=== PATIENT | male | born 1965 | race Caucasian/White ===

== ENCOUNTER → 2016-04-22 | Outpatient (CLI) | payer MEDICARE ==
[2016-04-22 11:39] LABS: ABSOLUTE BASOPHILS # (AUTO) 0.1 10^3/uL (0.0-0.2); ABSOLUTE LYMPHOCYTES (AUTO) 3.3 10^3/uL (0.5-4.7); BASOPHILS % (AUTO) 0.6 % (0-2); EOSINOPHILS % (AUTO) 0.2 % (0-6); HEMATOCRIT 45.4 % (37.9-51.0); HEMOGLOBIN 15.6 g/dL (13.5-17.0); HGB HCT DIFFERENCE 1.4; LYMPHOCYTES % (AUTO) 22.6 % (13-45); MEAN CORPUSCULAR HEMOGLOBIN 30.9 pg (27.0-33.4); MEAN CORPUSCULAR HGB CONC 34.3 g/dL (32.0-36.0); MEAN CORPUSCULAR VOLUME 90 fl (80-97); MONOCYTES % (AUTO) 7.1 % (3-13); RED BLOOD COUNT 5.04 10^6/uL (4.35-5.55); RED CELL DISTRIBUTION WIDTH 13.5 % (11.5-14.0); SEGMENTED NEUTROPHILS % (AUTO) 69.5 % (42-78); WHITE BLOOD COUNT 14.4 10^3/uL (4.0-10.5)
[2016-04-22 12:06] LABS: ALANINE AMINOTRANSFERASE 53 U/L (21-72); ALBUMIN 5.1 g/dL (3.5-5.0); ALKALINE PHOSPHATASE 117 U/L (38-126); ANION GAP 18 (5-19); ASPARTATE AMINO TRANSFERASE 28 U/L (17-59); BLOOD UREA NITROGEN 16 mg/dL (7-20); CALCIUM 10.5 mg/dL (8.4-10.2); CARBON DIOXIDE 27 mmol/L (22-30); CHLORIDE 97 mmol/L (98-107); CHOLESTEROL 149.91 mg/dL (0-200); CREATININE RESULT 1.53 mg/dL (0.52-1.25); Direct HDL 40 mg/dL (>40); GLUCOSE 102 mg/dL (75-110); POTASSIUM 4.6 mmol/L (3.6-5.0); TOTAL PROTEIN 8.3 g/dL (6.3-8.2); TRIGLYCERIDES 156 mg/dL (<150)
[2016-04-22 12:17] LABS: DIRECT LDL 87 mg/dL (<100)
[2016-04-22 12:21] LABS: VLDL CHOLESTEROL 31.2 mg/dL (10-31)
[2016-04-22 12:34] LABS: THYROID STIMULATING HORMONE 2.26 uIU/mL (0.47-4.68)
== END ==
LOC: OD 11:11
PROVIDERS: ATTEND Nurse Practitioner Psychiatric/Mental Health
DX: F31.81 Bipolar II disorder (principal); Z79.899 Other long term (current) drug therapy
CPT/HCPCS: 36415; 80053; 80061; 84439; 84443; 85025

== ENCOUNTER → 2017-02-02 | Outpatient (CLI) | payer MEDICARE, MEDICAID ==
--- NOTE | 2017-02-02 22:36 | XCELERA REPORT ---
[address] [address] Transthoracic Echocardiogram Report Name: USAMA CAMPOS Age: 51 yrs Gender: Male : 1965 Patient Status: Outpatient Patient Location: Study Date: 02/02/2017 10:11 AM Height: 71 in Weight: 269 lb BSA: 2.4 m2 Procedure: A complete two-dimensional transthoracic echocardiogram was performed (2D, M-mode, spectral and color flow Doppler). The study was technically difficult with many images being suboptimal in quality. Reason For Study: ABN EKG Ordering Physician: KENYON MITCHELL Performed By: Phyllis Malone Interpretation Summary The study was technically difficult with many images being suboptimal in quality. The left ventricular ejection fraction is normal. There is borderline concentric left ventricular hypertrophy. Doppler measurements suggest pseudonormalized left ventricular relaxation, which is associated with grade II/IV or mild to moderate diastolic dysfunction The left ventricle is grossly normal size. Wall motion cannot be accurately commented on, but no definite regional wall motion abnormalities noted. Borderline right ventricular enlargement. The right ventricular systolic function is normal. The left atrial size is normal. The right atrium is normal in size There is no mitral regurgitation noted. There is no mitral valve stenosis. No aortic regurgitation is present. There is no aortic valve stenosis There is no tricuspid stenosis. No tricuspid regurgitation. The aortic root is not well visualized but is probably normal size. The inferior vena cava appeared normal and decreased > 50% with respiration (RAP 5-10 mmHg) There is no pericardial effusion. MMode/2D Measurements & Calculations RVDd: 2.6 cm LVIDd: 5.1 cm FS: 37.5 % Ao root diam: 3.2 cm IVSd: 0.97 cm LVIDs: 3.2 cm EDV(Teich): 124.7 ml LVPWd: 0.96 cmESV(Teich): 41.0 ml Ao root area: 8.1 cm2 EF(Teich): 67.2 % LA dimension: 3.3 cm LVOT diam: 2.2 cm LVOT area: 3.9 cm2 Doppler Measurements & Calculations MV E max tatianna: MV P1/2t max tatianna: Ao V2 max: LV V1 max P.8 cm/sec 94.8 cm/sec 128.5 cm/sec 4.5 mmHg MV A max tatianna: MV P1/2t: 57.6 msec Ao max PG: LV V1 max: 62.7 cm/sec MVA(P1/2t): 3.8 cm2 6.6 mmHg 106.1 cm/sec MV E/A: 1.5 MV dec slope: RUSH(V,D): 3.2 cm2 481.7 cm/sec2 PA V2 max: 109.1 cm/sec PA max P.8 mmHg Left Ventricle The left ventricle is grossly normal size. There is borderline concentric left ventricular hypertrophy. The left ventricular ejection fraction is normal. Doppler measurements suggest pseudonormalized left ventricular relaxation, which is associated with grade II/IV or mild to moderate diastolic dysfunction. Wall motion cannot be accurately commented on, but no definite regional wall motion abnormalities noted. Right Ventricle Borderline right ventricular enlargement. There is normal right ventricular wall thickness. The right ventricular systolic function is normal. Atria The right atrium is normal in size. The left atrial size is normal. Interarterial septum not well visualized and not well dopplered. Cannot comment on ASD/PFO presence. Mitral Valve The mitral valve is grossly normal. There is no mitral valve stenosis. There is no mitral regurgitation noted. Aortic Valve The aortic valve is not well visualized secondary to technical limitations. There is no aortic valve stenosis. No aortic regurgitation is present. Tricuspid Valve The tricuspid valve is not well visualized secondary to technical limitations. There is no tricuspid stenosis. No tricuspid regurgitation. Pulmonic Valve The pulmonic valve is not well visualized. Great Vessels The aortic root is not well visualized but is probably normal size. The inferior vena cava appeared normal and decreased > 50% with respiration (RAP 5-10 mmHg). Effusions There is no pericardial effusion. : KENYON MITCHELL > Hamzah Summers
== END ==
LOC: SP 09:56
PROVIDERS: ATTEND Family Medicine
DX: R94.31 Abnormal electrocardiogram [ECG] [EKG] (principal)
CPT/HCPCS: 93306

== ENCOUNTER → 2017-04-06 | Outpatient (CLI) | payer MEDICARE, MEDICAID ==
[2017-04-06 12:18] LABS: ABSOLUTE EOSINOPHILS # (AUTO) 0.1 10^3/uL (0.0-0.6); ABSOLUTE LYMPHOCYTES (AUTO) 2.5 10^3/uL (0.5-4.7); ABSOLUTE MONOCYTES (AUTO) 0.6 10^3/uL (0.1-1.4); ABSOLUTE NEUT (AUTO) 6.3 10^3/uL (1.7-8.2); BASOPHILS % (AUTO) 0.4 % (0-2); EOSINOPHILS % (AUTO) 1.2 % (0-6); HEMATOCRIT 41.2 % (37.9-51.0); HEMOGLOBIN 14.1 g/dL (13.5-17.0); LYMPHOCYTES % (AUTO) 26.4 % (13-45); MEAN CORPUSCULAR HEMOGLOBIN 31.1 pg (27.0-33.4); MEAN CORPUSCULAR HGB CONC 34.2 g/dL (32.0-36.0); MEAN CORPUSCULAR VOLUME 91 fl (80-97); MONOCYTES % (AUTO) 6.7 % (3-13); PLATELET COUNT 232 10^3/uL (150-450); RED BLOOD COUNT 4.54 10^6/uL (4.35-5.55); RED CELL DISTRIBUTION WIDTH 13.8 % (11.5-14.0); SEGMENTED NEUTROPHILS % (AUTO) 65.3 % (42-78); TOTAL CELLS COUNTED % (AUTO) 100 %; WHITE BLOOD COUNT 9.6 10^3/uL (4.0-10.5)
[2017-04-06 12:49] LABS: ALANINE AMINOTRANSFERASE 65 U/L (21-72); ALBUMIN 4.2 g/dL (3.5-5.0); ALKALINE PHOSPHATASE 125 U/L (38-126); ANION GAP 13 (5-19); ASPARTATE AMINO TRANSFERASE 42 U/L (17-59); BILIRUBIN,DIRECT 0.3 mg/dL (0.0-0.4); BILIRUBIN,TOTAL 0.5 mg/dL (0.2-1.3); BLOOD UREA NITROGEN 9 mg/dL (7-20); CALCIUM 9.8 mg/dL (8.4-10.2); CARBON DIOXIDE 26 mmol/L (22-30); CHLORIDE 101 mmol/L (98-107); CHOLESTEROL 182.02 mg/dL (0-200); GLUCOSE 129 mg/dL (75-110); POTASSIUM 4.2 mmol/L (3.6-5.0); SODIUM 140.2 mmol/L (137-145); TOTAL PROTEIN 7.3 g/dL (6.3-8.2); TRIGLYCERIDES 170 mg/dL (<150)
[2017-04-06 12:59] LABS: DIRECT LDL 117 mg/dL (<100); FREE T4 (FREE THYROXINE) 1.34 ng/dL (0.78-2.19)
[2017-04-06 13:13] LABS: THYROID STIMULATING HORMONE 2.62 uIU/mL (0.47-4.68)
== END ==
LOC: OD 11:18
PROVIDERS: ATTEND Nurse Practitioner Psychiatric/Mental Health
DX: F31.81 Bipolar II disorder (principal); Z79.899 Other long term (current) drug therapy
CPT/HCPCS: 36415; 80053; 80061; 83036; 84439; 84443; 85025

== ENCOUNTER 2017-04-27 06:00 | Emergency (ER) | payer MEDICARE, MEDICAID ==
[2017-04-27] MEDS ORDERED: KETOROLAC TROMETHAMINE 60 MG/2 ML SDV IM ONE (06:30)
[2017-04-27] MEDS ORDERED: PROMETHAZINE HCL INJ 25 MG/1 ML VIAL IM ONE (06:30)
--- NOTE | 2017-04-27 06:36 | ER Document Report ---
ED General - General Chief Complaint: Nausea/Vomiting Stated Complaint: CHILLS AND TREMORS Time Seen by Provider: 04/27/17 06:23 TRAVEL OUTSIDE OF THE [place] IN LAST 30 DAYS: No - HPI Patient complains to provider of: Nausea vomiting chills Notes: Patient coming in for nausea vomiting chills states that he has diffuse myalgias. Patient states proximally 4 days ago when symptoms started. Patient also states approximate 4 days ago when he ran out of his methadone. Patient states niece recently diagnosed with influenza with similar symptoms. Patient states he has a form today to see his family physician to restart his methadone. Patient denies any recent travel patient upon my evaluation is resting comfortably upon questioning the patient about his symptoms patient starts to have a twitching to his legs with was to be voluntary. Patient was witnessed prior to evaluation resting comfortably no twitching - Related Data Allergies/Adverse Reactions: No Known Allergies Allergy (Unverified 07/31/11 11:46) Past Medical History - Social History Smoking Status: Former Smoker Chew tobacco use (# tins/day): No Family History: Reviewed & Not Pertinent Patient has suicidal ideation: No Patient has homicidal ideation: No - Past Medical History Cardiac Medical History: Reports: Hx Hypercholesterolemia, Hx Hypertension Pulmonary Medical History: Denies: Hx Tuberculosis Renal/ Medical History: Denies: Hx Peritoneal Dialysis Psychiatric Medical History: Reports: Hx Bipolar Disorder, Hx Depression Past Surgical History: Reports: Hx Cholecystectomy, Hx Herniorrhaphy, Hx Tonsillectomy. Denies: Hx Pacemaker - Immunizations Hx Diphtheria, Pertussis, Tetanus Vaccination: Yes Hx Pneumococcal Vaccination: 03/21/00 Review of Systems - Review of Systems Constitutional: Chills, Other - Nausea vomiting EENT: No symptoms reported Cardiovascular: No symptoms reported Respiratory: No symptoms reported Gastrointestinal: No symptoms reported Genitourinary: No symptoms reported Male Genitourinary: No symptoms reported Musculoskeletal: No symptoms reported Skin: No symptoms reported Hematologic/Lymphatic: No symptoms reported Neurological/Psychological: No symptoms reported -: Yes All other systems reviewed and negative Physical Exam - Vital signs Vitals: Temp Pulse Resp BP Pulse Ox 99.4 F 108 H 20 129/77 H 96 04/27/17 06:05 04/27/17 06:05 04/27/17 06:05 04/27/17 06:05 04/27/17 06:05 Interpretation: Normal - General General appearance: Appears well, Alert - HEENT Head: Normocephalic, Atraumatic Eyes: Normal Pupils: PERRL - Respiratory Respiratory status: No respiratory distress Chest status: Nontender Breath sounds: Normal Chest palpation: Normal - Cardiovascular Rhythm: Regular Heart sounds: Normal auscultation Murmur: No - Abdominal Inspection: Normal Distension: No distension Bowel sounds: Normal Tenderness: Nontender Organomegaly: No organomegaly - Back Back: Normal, Nontender - Extremities General upper extremity: Normal inspection, Nontender, Normal color, Normal ROM , Normal temperature General lower extremity: Normal inspection, Nontender, Normal color, Normal ROM , Normal temperature, Normal weight bearing. No: Thom's sign - Neurological Neuro grossly intact: Yes Cognition: Normal Orientation: AAOx4 [place] Coma Scale Eye Opening: Spontaneous [place] Coma Scale Verbal: Oriented [place] Coma Scale Motor: Obeys Commands Sma Coma Scale Total: 15 Speech: Normal Motor strength normal: LUE, RUE, LLE, RLE Sensory: Normal - Psychological Associated symptoms: Normal affect, Normal mood - Skin Skin Temperature: Warm Skin Moisture: Dry Skin Color: Normal Course - Re-evaluation Re-evalutation: 04/27/17 14:02 Patient symptoms more likely due to viral etiology the patient recently had exposure to diagnose fluid. Methadone withdrawal could be contributing as well. Otherwise patient looks to be nontoxic patient requesting I prescribed her methadone today explained that I cannot perform this however I will give him Phenergan and Zofran to help out his nausea patient is to take Tylenol Motrin for his aches and pains and follow-up with his physician to establish himself with the methadone clinic. - Vital Signs Vital signs: Temp Pulse Resp BP Pulse Ox 98.6 F 108 H 21 H 128/85 H 96 04/27/17 07:14 04/27/17 06:05 04/27/17 07:01 04/27/17 07:00 04/27/17 07:01 Discharge - Discharge Clinical Impression: Flu-like symptoms Condition: Good Disposition: HOME, SELF-CARE Instructions: Influenza ([facility]), Nausea or Vomiting, Nonspecific ([facility]) Additional Instructions: Some your symptoms today are consistent with influenza. Continue to take Tylenol Motrin for fevers. They will also help with pain control. Take nausea medication as prescribed. I would recommend continue with your appointment today to see your primary care physician or establish yourself with this physician to continue on your pain management regimen. Prescriptions: Ondansetron [Zofran Odt] 4 mg PO Q6 PRN #30 tab.rapdis PRN Reason: For Nausea/Vomiting Promethazine HCl [Phenergan 25 mg Tablet] 25 - 50 mg PO Q6 #30 tablet Referrals: KENYON MITCHELL MD [Primary Care Provider] - Follow up as needed
[2017-04-27 07:13] VITALS: BP 128/85
== END 2017-04-27 07:42 | disposition home or self-care (01) ==
LOC: ER 06:00
DX: R11.2 Nausea with vomiting, unspecified (principal); R68.83 Chills (without fever); M79.1 Myalgia; E78.00 Pure hypercholesterolemia, unspecified; I10 Essential (primary) hypertension; Z90.49 Acquired absence of other specified parts of digestive tract
CPT/HCPCS: 99284; 96372; J1885; J2550

== ENCOUNTER → 2017-07-22 | Outpatient (CLI) | payer MEDICAID, MEDICARE ==
--- NOTE | 2017-07-22 10:42 | RADIOLOGY REPORT (SQ) ---
EXAM DESCRIPTION: U/S ABDOMEN LIMITED W/O DOP COMPLETED DATE/TIME: 07/22/2017 9:06 am REASON FOR STUDY: R94.5 ABNORMAL RESULTS OF LIVER FUNCTION STUDIES R94.5 ABNORMAL RESULTS OF LIVER FUNCTION STUDIES COMPARISON: CT angio chest 2011 TECHNIQUE: Dynamic and static grayscale images acquired of the abdomen and recorded on PACS. Additio nal selected color Doppler and spectral images recorded. LIMITATIONS: Body habitus, midline bowel gas FINDINGS: PANCREAS: Not well seen LIVER: Coarse echotexture, difficult to penetrate with the ultrasound energy from diffuse fatty infil tration. LIVER VASCULATURE: Normal directional flow of the main portal vein and hepatic veins. GALLBLADDER: Post cholecystectomy ULTRASOUND-DETECTED HAINES'S SIGN: Negative. INTRAHEPATIC DUCTS AND COMMON DUCT: CBD and intrahepatic ducts normal caliber. No filling defects. D istal most common duct not well seen due to duodenum gas. INFERIOR VENA CAVA: Not well seen. AORTA: Not well seen. RIGHT KIDNEY: Not well seen. No gross hydronephrosis PERITONEAL AND RIGHT PLEURAL SPACE: No ascites or effusions. OTHER: No other significant findings. IMPRESSION: Fatty liver Post cholecystectomy Pancreas, right kidney, abdominal aorta, hepatic vena cava not well seen TECHNICAL DOCUMENTATION: JOB ID: [id number] [employer]- All Rights Reserved Reading location - IP/workstation name: [email or web address]
== END ==
LOC: RAD 09:01
PROVIDERS: ATTEND Physician Assistant
DX: R94.5 Abnormal results of liver function studies (principal); K76.0 Fatty (change of) liver, not elsewhere classified
CPT/HCPCS: 76705

== ENCOUNTER → 2018-04-18 | Outpatient (CLI) | payer MEDICAID, MEDICARE ==
--- NOTE | 2018-04-18 14:42 | RADIOLOGY REPORT (SQ) ---
EXAM DESCRIPTION: CT CHEST WITH COMPLETED DATE/TIME: 04/18/2018 2:20 pm REASON FOR STUDY: R05 COUGH R05 COUGH COMPARISON: 08/08/2011 TECHNIQUE: CT scan of the chest performed using helical scanning technique with dynamic intravenous contrast injection. Images reviewed with lung, soft tissue and bone windows. Reconstructed coronal and sagittal MPR and MIP images reviewed. All images stored on PACS. All CT scanners at this facility use dose modulation, iterative reconstruction, and/or weight based d osing when appropriate to reduce radiation dose to as low as reasonably achievable (ALARA). [facility]: Dose Right [facility]: CareDose [facility]: Dose Right [facility]: Teradose 4D [facility]: myfab5 CONTRAST TYPE AND DOSE: contrast/concentration: Isovue 350.00 mg/ml; Total Contrast Delivered: 80.0 ml; Total Saline Delivered: 36.0 ml 80 cc Omnipaque 350 RENAL FUNCTION: Creatinine 0.9 RADIATION DOSE: CT Rad equipment meets quality standard of care and radiation dose reduction techniq ues were employed. CTDIvol: 17.4 mGy. DLP: 659 mGy-cm. . LIMITATIONS: None. FINDINGS: LUNGS AND PLEURA: There is patchy consolidation and ground-glass attenuation most conspicu ous within the right upper lobe. Additional mild areas of airspace disease within the bilateral lowe r lobes. There are associated bilateral nodular opacities. No significant pleural effusion. No pne umothorax. HILAR AND MEDIASTINAL STRUCTURES: No identified masses or abnormal nodes. HEART AND VASCULAR STRUCTURES: No aneurysm or dissection. No central pulmonary emboli. No pericardi al effusion. HARDWARE: None in the chest. UPPER ABDOMEN: No significant findings. Limited exam. THYROID AND OTHER SOFT TISSUES: No masses. No adenopathy. BONES: No significant finding. OTHER: No other significant finding. IMPRESSION: Findings compatible with multifocal pneumonia, greatest within the right upper lobe. Rec ommend follow-up following treatment to ensure resolution of the scattered nodular opacities. TECHNICAL DOCUMENTATION: JOB ID: [id number] Quality ID # [id number]: Final reports with documentation of one or more dose reduction techniques (e.g., Au tomated exposure control, adjustment of the mA and/or kV according to patient size, use of iterative reconstruction technique) 2010 [employer]- All Rights Reserved Reading location - IP/workstation name: [email or web address]
== END ==
LOC: RAD 14:57
PROVIDERS: ATTEND Family Medicine
DX: J18.9 Pneumonia, unspecified organism (principal); R05 Cough
CPT/HCPCS: 71260; 82565

== ENCOUNTER 2018-05-15 14:26 | Emergency (ER) | payer MEDICARE, MEDICAID ==
[2018-05-15] MEDS ORDERED: ACETAMINOPHEN 325 MG TABLET PO ONE (16:26)
--- NOTE | 2018-05-15 16:51 | RADIOLOGY REPORT (SQ) ---
EXAM DESCRIPTION: HIP RIGHT AP/LATERAL COMPLETED DATE/TIME: 05/15/2018 4:41 pm REASON FOR STUDY: pain in right hip COMPARISON: None. NUMBER OF VIEWS: Two views. TECHNIQUE: AP pelvis and additional frog-leg view of the right hip. LIMITATIONS: None. FINDINGS: MINERALIZATION: Normal. RIGHT HIP: No fracture or dislocation. No worrisome bone lesions. LEFT HIP: No fracture or dislocation. No worrisome bone lesions. PUBIS AND ISCHIUM: No fracture. PELVIS: No fracture. SACRUM: No fracture or dislocation. No worrisome bone lesions. LOWER LUMBAR SPINE: No fracture or dislocation. No worrisome bone lesions. No significant disc disea se. SOFT TISSUES: No findings. OTHER: No other significant finding. IMPRESSION: NEGATIVE STUDY OF THE RIGHT HIP. NO RADIOGRAPHIC EVIDENCE OF ACUTE INJURY. TECHNICAL DOCUMENTATION: JOB ID: [id number] [employer]- All Rights Reserved Reading location - IP/workstation name: [email or web address]
--- NOTE | 2018-05-15 18:16 | ER Document Report ---
ED Hip Pain/Injury - General Chief Complaint: Hip Pain Stated Complaint: R HIP PAIN Time Seen by Provider: 05/15/18 16:01 Primary Care Provider: [facility] ([facility] [Provider Group] - Follow up as needed KENYON MITCHELL MD [Primary Care Provider] - Follow up as needed Mode of Arrival: Ambulatory Information source: Patient Notes: 52-year-old male presented to ED for complaint of right hip pain for a week. He states he has been experiencing pain from his right pelvic and hip. Patient denies any injuries or any new event that could have caused his pain. He was walking when I first saw the man. He is on pain management and states he is getting pain management narcotics. Patient is alert oriented respirations regular and unlabored speaking in full sentences and is able to walk. He states that he is being seen at the cancer center for kidney cancer that they found out about a week ago and they are supposed to remove his kidney and Malathi. TRAVEL OUTSIDE OF THE [place] IN LAST 30 DAYS: No - HPI Patient complains to provider of: Hip - Right Occurred: Last week Onset/Duration: Gradual Quality of pain: Achy, Sharp Severity: Severe Pain Level: 5 Symptoms prior to fall: None Symptoms since fall: None Rotation of extremity: None Pain with palpation of the pelvis: Yes - Related Data Allergies/Adverse Reactions: No Known Allergies Allergy (Unverified 07/31/11 11:46) Past Medical History - General Information source: Patient - Social History Smoking Status: Former Smoker Frequency of alcohol use: None Drug Abuse: None Occupation: Disabled Lives with: Family Family History: Reviewed & Not Pertinent Patient has suicidal ideation: No Patient has homicidal ideation: No - Past Medical History Cardiac Medical History: Reports: Hx Hypercholesterolemia, Hx Hypertension Pulmonary Medical History: Reports: None EENT Medical History: Reports: None Neurological Medical History: Reports: None Endocrine Medical History: Reports: None Renal/ Medical History: Reports: None Malignancy Medical History: Reports Hx Renal (Kidney) Cancer GI Medical History: Reports: Other - Inguinal hernia Musculoskeletal Medical History: Reports Hx Arthritis, Reports Other - Degenerative disc disease his left hip injury Skin Medical History: Reports None Psychiatric Medical History: Reports: Hx Bipolar Disorder, Hx Depression Traumatic Medical History: Reports: None Infectious Medical History: Reports: None Past Surgical History: Reports: Hx Cholecystectomy, Hx Herniorrhaphy, Hx Tonsillectomy - Immunizations Hx Diphtheria, Pertussis, Tetanus Vaccination: Yes Hx Pneumococcal Vaccination: 03/21/00 Review of Systems - Review of Systems Constitutional: No symptoms reported EENT: No symptoms reported Cardiovascular: No symptoms reported Respiratory: No symptoms reported Gastrointestinal: No symptoms reported Genitourinary: No symptoms reported Male Genitourinary: No symptoms reported Musculoskeletal: Joint pain - Right hip, Muscle pain. denies: Joint swelling Skin: No symptoms reported Hematologic/Lymphatic: No symptoms reported Neurological/Psychological: No symptoms reported -: Yes All other systems reviewed and negative Physical Exam - Vital signs Vitals: Temp Pulse Resp BP Pulse Ox 98.8 F 101 H 16 123/77 96 05/15/18 14:33 05/15/18 14:33 05/15/18 14:33 05/15/18 14:33 05/15/18 14:33 Interpretation: Normal - General General appearance: Appears well, Alert - HEENT Head: Normocephalic, Atraumatic Eyes: Normal Pupils: PERRL - Respiratory Respiratory status: No respiratory distress Chest status: Nontender Breath sounds: Normal Chest palpation: Normal - Cardiovascular Rhythm: Regular Heart sounds: Normal auscultation Murmur: No - Abdominal Inspection: Normal Distension: No distension Bowel sounds: Normal Tenderness: Nontender Organomegaly: No organomegaly - Back Back: Normal, Nontender - Extremities General upper extremity: Normal inspection, Nontender, Normal color, Normal ROM, Normal temperature General lower extremity: Normal inspection, Normal color, Normal ROM, Normal temperature, Normal weight bearing. No: Thom's sign Hip: Tender, Pain with ROM. No: Abrasion, Deformity, Dislocation, Ecchymosis, Instability, Laceration, Unable to bear weight Thigh: Normal, Nontender Knee: Normal, Nontender Calf: Normal, Nontender - Neurological Neuro grossly intact: Yes Cognition: Normal Orientation: AAOx4 Sam Coma Scale Eye Opening: Spontaneous [place] Coma Scale Verbal: Oriented [place] Coma Scale Motor: Obeys Commands [place] Coma Scale Total: 15 Speech: Normal Motor strength normal: LUE, RUE, LLE, RLE Sensory: Normal - Psychological Associated symptoms: Normal affect, Normal mood - Skin Skin Temperature: Warm Skin Moisture: Dry Skin Color: Normal Course - Vital Signs Vital signs: Temp Pulse Resp BP Pulse Ox 98.4 F 90 14 111/67 96 05/15/18 18:48 05/15/18 18:48 05/15/18 18:48 05/15/18 18:48 05/15/18 18:48 - Diagnostic Test Radiology reviewed: Image reviewed, Reports reviewed Discharge - Discharge Clinical Impression: Acute right hip pain Condition: Stable Disposition: HOME, SELF-CARE Additional Instructions: Arthralgia Arthralgia is pain in the joints. We use the word arthralgia to describe joint pain where there's no history of injury, no known joint disease, and the joints are normal to examination. Arthralgia can be a symptom of an acute illness, such as influenza, hepatitis, or serum sickness. Sometimes the joint pain comes before any other symptoms. Arthralgia can also be an early symptom of joint disease, such as rheumatoid arthritis or lupus. If arthralgia is accompanied by an acute illness that explains the joint pain, such as mononucleosis, no further testing needs to be done. When there's no clear reason for the pain, tests may be done to see if there's an inflammatory disease of the joints. The usual treatment is anti-inflammatory medication, such as ibuprofen. Joint aches can be soothed with a heating pad or hot compress. If joints remain painful more than a few days, you'll need testing and followup. Return if a joint becomes swollen, red, or severely painful. Ibuprofen Ibuprofen is an excellent, safe drug for pain control. In addition, it has potent antiinflammatory effects which are beneficial, especially in the treatment of injuries, arthritis, or tendonitis. It's best to take ibuprofen with food. Persons with ulcer disease or allergy to aspirin should notify their physician of this before taking ibuprofen. Take the medication exactly as prescribed. Don't take additional doses unless instructed to do so by your doctor. If you develop wheezing, shortness of breath, hives, faintness, stomach pain, vomiting, or dark black stools, return for re-evaluation at once. Ice Packs Apply ice packs frequently against the painful area. Many different schedules are recommended, such as "20 minutes on, 20 minutes off" or "one hour ice, two hours rest." If you need to work, you may need to go longer between ice treatments. You should plan to have the area ice packed AT LEAST one fourth of the time. The ice should be applied over the wrap, tape, or splint, or over a layer of cloth -- not directly against the skin. Some ice bags have a built-in cloth and can be put directly on the skin. FOLLOW-UP CARE: If you have been referred to a physician for follow-up care, call the physicians office for an appointment as you were instructed or within the next two days. If you experience worsening or a significant change in your symptoms, notify the physician immediately or return to the Emergency Department at any time for re-evaluation. Referrals: KENYON MITCHELL MD [Primary Care Provider] - Follow up as needed [facility] ([facility]) [Provider Group] - Follow up as needed
[2018-05-15 18:51] VITALS: BP 111/67
== END 2018-05-15 18:50 | disposition home or self-care (01) ==
LOC: ER 14:26
DX: M25.551 Pain in right hip (principal); R10.2 Pelvic and perineal pain; C64.9 Malignant neoplasm of unspecified kidney, except renal pelvis; Z87.891 Personal history of nicotine dependence; I10 Essential (primary) hypertension
CPT/HCPCS: 99283; 73502; A9270

== ENCOUNTER → 2018-06-01 | Outpatient (CLI) | payer MEDICARE, MEDICAID ==
--- NOTE | 2018-06-01 15:26 | RADIOLOGY REPORT (SQ) ---
EXAM DESCRIPTION: HIP RIGHT AP/LATERAL COMPLETED DATE/TIME: 06/01/2018 1:08 pm REASON FOR STUDY: PAIN OF RT HIP JOINT M25.551 PAIN IN RIGHT HIP COMPARISON: 05/15/2018 NUMBER OF VIEWS: Two views. TECHNIQUE: AP pelvis and additional frog-leg view of the right hip. LIMITATIONS: None. FINDINGS: MINERALIZATION: Normal. RIGHT HIP: There is a lucent line extending cephalad from the superior margin of the acetabulum. Thi s is not seen on the prior study. LEFT HIP: No fracture or dislocation. No worrisome bone lesions. PUBIS AND ISCHIUM: No fracture. PELVIS: No fracture. SACRUM: No fracture or dislocation. No worrisome bone lesions. LOWER LUMBAR SPINE: No fracture or dislocation. No worrisome bone lesions. No significant disc disea se. SOFT TISSUES: No findings. OTHER: No other significant finding. IMPRESSION: Nondisplaced fracture of the right ilium extending to the superior acetabular margin. TECHNICAL DOCUMENTATION: JOB ID: [id number] [employer]- All Rights Reserved Reading location - IP/workstation name: [email or web address]
== END ==
LOC: OD 12:46
PROVIDERS: ATTEND Family Medicine
DX: M25.551 Pain in right hip (principal)

== ENCOUNTER → 2018-06-11 | Outpatient (CLI) | payer MEDICAID, MEDICARE ==
--- NOTE | 2018-06-12 12:20 | RADIOLOGY REPORT (SQ) ---
EXAM DESCRIPTION: PET CT SKULL/THIGH COMPLETED DATE/TIME: 06/11/2018 9:42 pm REASON FOR STUDY: R91.1 SOLITARY PULMONARY NODULE R91.1 SOLITARY PULMONARY NODULE COMPARISON: CT chest dated 04/18/2018. X-ray right hip dated 06/01/2018. CT abdomen from [facility] dated 04/11/2018. RADIONUCLIDE AND DOSE: 10 mCi F18 FDG The route of agent administration: Intravenous FASTING BLOOD SUGAR: 92 mg/dl CONTRAST TYPE AND DOSE: No CT contrast given. TECHNIQUE: Blood glucose level was verified. Above dose of FDG was injected intravenously. 2-D seg mented attenuation correction images were obtained from the base of the skull to the midthighs. Nonc ontrast CT images were obtained for attenuation correction and fusion with emission images. CT image s were performed without oral or intravenous contrast and are not sensitive for parenchymal lesions. A series of overlapping emission PET images were obtained. Images reviewed and manipulated at [facility] work station by the radiologist. Images stored on PACS. LIMITATIONS: None. FINDINGS: HEAD AND NECK: No areas of abnormal metabolic activity in the soft tissues of the head and neck. CHEST: No areas of abnormal metabolic activity in the chest. ABDOMEN AND PELVIS: Lobular solid mass in the left kidney measuring approximately 8.6 by 8.0 cm. Marisela n SUV 3.76. PROXIMAL LOWER EXTREMITIES: No areas of abnormal metabolic activity in the soft tissues of the lower extremities. BONES: Expansile lucent lesion in the right iliac bone above the acetabulum measuring 3.7 x 5.0 cm. Associated nondisplaced fracture. Mean SUV 3.39. ADDITIONAL CT FINDINGS: No additional significant findings on the noncontrast CT images. OTHER: No other significant findings. Background blood pool activity mean SUV 1.46. Background live r activity mean SUV 2.25. IMPRESSION: 1. SOLID MASS IN THE LEFT KIDNEY CONSISTENT WITH MALIGNANCY. 2. LUCENT LESION IN THE RIGHT ILIAC BONE WITH ASSOCIATED PATHOLOGIC FRACTURE. THIS COULD REPRESENT A METASTASIS. ALTERNATIVELY THIS COULD BE A BONE CYST OR OTHER PRIMARY BONE LESION. 3. THE SMALL PULMONARY NODULES SEEN ON THE RECENT CT OF THE ABDOMEN ARE CURRENTLY NOT PRESENT. NO AB NORMAL FINDINGS IN THE CHEST. 4. NO OTHER AREAS OF ABNORMAL ACTIVITY ON PET IMAGING. TECHNICAL DOCUMENTATION: JOB ID: [id number] [employer]- All Rights Reserved Reading location - IP/workstation name: [email or web address]
== END ==
LOC: RAD 18:16
PROVIDERS: ATTEND Internal Medicine Medical Oncology
DX: R91.1 Solitary pulmonary nodule (principal)
CPT/HCPCS: 78815; A9552

== ENCOUNTER 2018-08-06 15:43 | Emergency (ER) | payer MEDICARE, MEDICAID ==
--- NOTE | 2018-08-06 16:31 | ER Document Report ---
ED Medical Screen (RME) - General Chief Complaint: Abscess Stated Complaint: ABSCESS Time Seen by Provider: 08/06/18 16:21 Primary Care Provider: MARILEE DE GUZMAN MD [Primary Care Provider] - Follow up as needed Mode of Arrival: Wheelchair Information source: Patient Notes: Patient presents today with complaints of a abscess under his abdominal fold on the right side that erythema is getting worse. Reports he is been treated by his primary care provider Dr. Ortega for this, he is currently taking antibiotics (doxy, keflex, bactroban ointment), but reports the area is larger with increased redness. He is a diabetic type II. No other complaints such as fever vomiting diarrhea. Area has erythema but I cannot appreciate induration or fluctuance. I have greeted and performed a rapid initial assessment of this patient. A comprehensive ED assessment and evaluation of the patient, analysis of test results and completion of the medical decision making process will be conducted by additional ED providers. Dictation of this chart was performed using voice recognition software; therefore, there may be some unintended grammatical errors. TRAVEL OUTSIDE OF THE [place] IN LAST 30 DAYS: No - Related Data Allergies/Adverse Reactions: No Known Allergies Allergy (Verified 08/06/18 15:43) Past Medical History - Past Medical History Cardiac Medical History: Reports: Hx Hypercholesterolemia, Hx Hypertension Pulmonary Medical History: Denies: Hx Tuberculosis Renal/ Medical History: Denies: Hx Peritoneal Dialysis Malignancy Medical History: Reports Hx Renal (Kidney) Cancer Musculoskeltal Medical History: Reports Hx Arthritis Psychiatric Medical History: Reports: Hx Bipolar Disorder, Hx Depression Past Surgical History: Reports: Hx Cholecystectomy, Hx Herniorrhaphy, Hx Tonsillectomy. Denies: Hx Pacemaker - Immunizations Hx Diphtheria, Pertussis, Tetanus Vaccination: Yes Physical Exam - Vital signs Vitals: Temp Pulse Resp BP Pulse Ox 98.1 F 95 20 113/53 L 98 08/06/18 15:45 08/06/18 15:45 08/06/18 15:45 08/06/18 15:45 08/06/18 15:45 Course - Vital Signs Vital signs: Temp Pulse Resp BP Pulse Ox 98.1 F 95 20 113/53 L 98 08/06/18 15:45 08/06/18 15:45 08/06/18 15:45 08/06/18 15:45 08/06/18 15:45 Doctor's Discharge - Discharge Referrals: MARILEE DE GUZMAN MD [Primary Care Provider] - Follow up as needed
--- NOTE | 2018-08-06 18:35 | ER Document Report ---
ED Skin Rash/Insect Bite/Abscs - General Chief Complaint: Abscess Stated Complaint: ABSCESS Time Seen by Provider: 08/06/18 16:21 Primary Care Provider: MARILEE DE GUZMAN MD [ACTIVE STAFF] - Follow up as needed Mode of Arrival: Wheelchair Information source: Patient, Relative Notes: 52-year-old male presented to ED for complaint of cellulitis to the right abdominal folds with erythema. He states he is on doxycycline and Keflex and Bactroban. He reports that the area looks a little larger and had some drainage today. He is a diabetic type II. He denies any fever vomiting or diarrhea. The area is not hot to the touch it is erythematous but no abscess noted. TRAVEL OUTSIDE OF THE [place] IN LAST 30 DAYS: No - HPI Patient complains to provider of: Other - Tender inflamed area to the right lower abdomen. No abscess appreciated. Patient is on Doxy Keflex and Bactroban Onset: Last week Onset/Duration: Persistent Quality of pain: No pain Severity: None Pain Level: Denies Skin Character: Drainage, Erythema. No: Abscess Skin Temperature: Warm Quality of rash: Other - Tender to palpation Identify cause: Yes - Cellulitis on antibiotics Exacerbated by: Movement, Walking, Other - Palpation Relieved by: Remaining still Similar symptoms previously: Yes Recently seen / treated by doctor: Yes - Related Data Allergies/Adverse Reactions: No Known Allergies Allergy (Verified 08/06/18 15:43) Past Medical History - General Information source: Patient - Social History Smoking Status: Never Smoker Chew tobacco use (# tins/day): No Frequency of alcohol use: None Drug Abuse: None Lives with: Family Family History: Reviewed & Not Pertinent Patient has suicidal ideation: No Patient has homicidal ideation: No - Past Medical History Cardiac Medical History: Reports: Hx Hypercholesterolemia, Hx Hypertension Pulmonary Medical History: Reports: None EENT Medical History: Reports: None Neurological Medical History: Reports: None Endocrine Medical History: Reports: None Renal/ Medical History: Reports: None Malignancy Medical History: Reports Hx Renal (Kidney) Cancer GI Medical History: Reports: None Musculoskeletal Medical History: Reports Hx Arthritis Skin Medical History: Reports Hx Cellulitis Psychiatric Medical History: Reports: Hx Bipolar Disorder, Hx Depression Traumatic Medical History: Reports: None Infectious Medical History: Reports: None Past Surgical History: Reports: Hx Cholecystectomy, Hx Herniorrhaphy, Hx Tonsillectomy - Immunizations Hx Diphtheria, Pertussis, Tetanus Vaccination: Yes Hx Pneumococcal Vaccination: 03/21/00 Review of Systems - Review of Systems Constitutional: No symptoms reported EENT: No symptoms reported Cardiovascular: No symptoms reported Respiratory: No symptoms reported Gastrointestinal: No symptoms reported Genitourinary: No symptoms reported Male Genitourinary: No symptoms reported Musculoskeletal: No symptoms reported Skin: Other - Cellulitis right lower abdomen Hematologic/Lymphatic: No symptoms reported Neurological/Psychological: No symptoms reported -: Yes All other systems reviewed and negative Physical Exam - Vital signs Vitals: Temp Pulse Resp BP Pulse Ox 98.1 F 95 20 113/53 L 98 08/06/18 15:45 08/06/18 15:45 08/06/18 15:45 08/06/18 15:45 08/06/18 15:45 Interpretation: Normal - General General appearance: Appears well, Alert - HEENT Head: Normocephalic, Atraumatic Eyes: Normal Pupils: PERRL - Respiratory Respiratory status: No respiratory distress Chest status: Nontender Breath sounds: Normal Chest palpation: Normal - Cardiovascular Rhythm: Regular Heart sounds: Normal auscultation Murmur: No - Abdominal Inspection: Normal Distension: No distension Bowel sounds: Normal Tenderness: Nontender Organomegaly: No organomegaly - Back Back: Normal, Nontender - Extremities General upper extremity: Normal inspection, Nontender, Normal color, Normal ROM, Normal temperature General lower extremity: Normal inspection, Nontender, Normal color, Normal ROM, Normal temperature, Normal weight bearing. No: Thom's sign - Neurological Neuro grossly intact: Yes Cognition: Normal Orientation: AAOx4 Sam Coma Scale Eye Opening: Spontaneous [place] Coma Scale Verbal: Oriented [place] Coma Scale Motor: Obeys Commands Sam Coma Scale Total: 15 Speech: Normal Motor strength normal: LUE, RUE, LLE, RLE Sensory: Normal - Psychological Associated symptoms: Normal affect, Normal mood - Skin Skin Temperature: Warm Skin Moisture: Dry Skin Color: Normal Location of irregularity: Abdomen - Being treated for cellulitis right lower abdomen no abscess noted. Patient states that he is not having any pain. He was just concerned because it was red Character of irregularity: Erythematous Irregularity with: Tenderness Course - Re-evaluation Re-evalutation: 08/06/18 19:39 Patient instructed to continue current medications and to follow-up with his oncologist and primary care doctor. Patient has doxycycline Keflex and Bactroban that he is using. He was recommended to use Epson salt soaks and did change the dressing as instructed and to keep the skin folds from rubbing against each other. Patient and verbalized understanding and agreement with treatment plan. - Vital Signs Vital signs: Temp Pulse Resp BP Pulse Ox 98.1 F 89 15 108/65 96 08/06/18 19:05 08/06/18 19:05 08/06/18 19:05 08/06/18 19:05 08/06/18 19:05 Discharge - Discharge Clinical Impression: Cellulitis of right abdominal wall Condition: Stable Disposition: HOME, SELF-CARE Additional Instructions: CELLULITIS: You have an infection of your skin and underlying soft tissues called cellulitis. This is due to bacteria, which can enter through any break in the skin, or even through an irritated hair follicle. Untreated, cellulitis will usually worsen. Antibiotics are required. Usually, warm packs or warm soaks, and elevation of the infected area are recommended. You should start getting better within 24 to 36 hours. Most infections respond quickly to the right medication. Follow-up care is important, however, to check for abscess (boil) formation, unsuspected foreign body, or resistant infection. If you develop fever, chills, or if the area of infection is becoming rapidly more swollen or painful, call the doctor at once. DOXYCYCLINE: Continue your doxycycline as prescribed Doxycycline (Vibramycin, Doryx) is an antibiotic of the tetracycline family. This type of drug is useful for infections of the respiratory tract and genital tract, and is sometimes used for intestinal infections. Unlike most tetracyclines, doxycycline can be taken with food. It is longer acting, and (usually) less prone to side effects than regular tetracycline. Tetracycline antibiotics can stain immature teeth and SHOULD NOT BE TAKEN BY CHILDREN, NURSING MOTHERS, OR WOMEN. Tetracyclines can make you more prone to sunburn. Abdominal cramping, nausea, and diarrhea are occasional side effects. Women may experience vaginal yeast infections. Call the doctor at once if you develop hives, itching, shortness of breath, or lightheadedness. Bactroban Ointment continue your Bactroban as prescribed Bactroban is very effective against the germs that cause infection within the skin. It's useful for impetigo and other superficial infections. Deeper infections require antibiotics by mouth or by shot. Apply the medicine three times a day for one week, or longer if your doctor has advised it. Stop the medicine and call your doctor if you develop large blisters, severe itching, increasing pain, swelling, fever, or spreading redness. Epsom Salt Soaks Soak the wound area in a container of warm epsom salt water. If you can't get the wound area into a bucket or rajan, use a folded towel soaked in the epsom salt solution and apply to the area. Use clean hot tap water (about the temperature of a very warm bath), mixing in about one (1) teaspoon for every pint of water. Two gallon --> 16 teaspoons Epsom Salts One gallon --> 8 teaspoons Epsom Salts Two quarts --> 4 teaspoons Epsom Salts One quart --> 2 teaspoons Epsom Salts Soak the wound for about 20 minutes while gently moving it around in the water. Repeat this four (4) times a day. Keep area clean and dry change dressing as instructed keep skin folds . FOLLOW-UP CARE: If you have been referred to a physician for follow-up care, call the [facility] office for an appointment as you were instructed or within the next two days. If you experience worsening or a significant change in your symptoms, notify the physician immediately or return to the Emergency Department at any time for re-evaluation. Follow-up with your oncologist and your primary doctor within the next 3 days. Referrals: MARILEE DE GUZMAN MD [ACTIVE STAFF] - Follow up as needed
[2018-08-06 19:06] VITALS: BP 108/65
== END 2018-08-06 19:10 | disposition home or self-care (01) ==
LOC: ER 15:43
DX: L03.311 Cellulitis of abdominal wall (principal); E11.9 Type 2 diabetes mellitus without complications; I10 Essential (primary) hypertension; Z85.528 Personal history of other malignant neoplasm of kidney
CPT/HCPCS: 99282

== ENCOUNTER 2018-08-11 14:56 | Emergency (ER) | payer MEDICARE, MEDICAID ==
--- NOTE | 2018-08-11 16:16 | ER Document Report ---
ED Medical Screen (RME) - General Chief Complaint: Hip Pain Stated Complaint: RIGHT HIP PAIN Time Seen by Provider: 08/11/18 16:07 Primary Care Provider: KENYON MITCHELL MD [Primary Care Provider] - Follow up as needed TRAVEL OUTSIDE OF THE [place] IN LAST 30 DAYS: No - HPI Notes: 08/11/18 16:15 Patient is a 52-year-old male with a history of kidney cancer on his left side (status post nephrectomy) that metastasized to his right hip area complaining of acute on chronic pain to the right hip. Patient states that he does have a pathologic fracture to his right ilium and is supposed to see his orthopedic oncologist at the end of the month, but the pain started getting worse and he wanted evaluated for possible worsening fracture. He is otherwise eating and drinking without difficulty. He is urinating normally and having normal bowel movements. Denies BERNARDO, fever, neck pain, URI, CP, SOB, Abd pain, or rash. I have treated and performed a rapid initial assessment of this patient. A comprehensive ED assessment and evaluation of the patient, analysis of test results and completion of medical decision making process will be conducted by additional ED providers. PHYSICAL EXAMINATION: GENERAL: Well-appearing, well-nourished and in no acute distress. A&Ox4. Answers questions appropriately. LUNGS: Breath sounds clear to auscultation bilaterally and equal. No wheezes rales or rhonchi. HEART: Regular rate and rhythm without murmurs, rubs, gallops. - Related Data Allergies/Adverse Reactions: No Known Allergies Allergy (Verified 08/06/18 15:43) Past Medical History - Past Medical History Cardiac Medical History: Reports: Hx Hypercholesterolemia, Hx Hypertension Pulmonary Medical History: Denies: Hx Tuberculosis Renal/ Medical History: Denies: Hx Peritoneal Dialysis Malignancy Medical History: Reports Hx Renal (Kidney) Cancer Musculoskeltal Medical History: Reports Hx Arthritis Skin Medical History: Reports Hx Cellulitis Psychiatric Medical History: Reports: Hx Bipolar Disorder, Hx Depression Past Surgical History: Reports: Hx Cholecystectomy, Hx Herniorrhaphy, Hx Kidney (Renal Surgery) - nephrectomy, Hx Tonsillectomy. Denies: Hx Pacemaker - Immunizations Hx Diphtheria, Pertussis, Tetanus Vaccination: Yes Physical Exam - Vital signs Vitals: Temp Pulse Resp BP Pulse Ox 98.3 F 95 16 108/66 95 08/11/18 15:31 05/24/19 15:31 08/11/18 15:31 08/11/18 15:31 08/11/18 15:31 Course - Vital Signs Vital signs: Temp Pulse Resp BP Pulse Ox 98.3 F 95 16 108/66 95 08/11/18 15:31 08/11/18 15:31 08/11/18 15:31 08/11/18 15:31 08/11/18 15:31 Doctor's Discharge - Discharge Referrals: KENYON MITCHELL MD [Primary Care Provider] - Follow up as needed
[2018-08-11] MEDS ORDERED: FENTANYL CITRATE INJ/PF 100 MCG/2 ML AMPUL IM ONE (16:17)
[2018-08-11 16:39] LABS: ABSOLUTE EOSINOPHILS # (AUTO) 0.3 10^3/uL (0.0-0.6); ABSOLUTE LYMPHOCYTES (AUTO) 1.3 10^3/uL (0.5-4.7); ABSOLUTE MONOCYTES (AUTO) 0.6 10^3/uL (0.1-1.4); ABSOLUTE NEUT (AUTO) 4.5 10^3/uL (1.7-8.2); BASOPHILS % (AUTO) 0.6 % (0-2); EOSINOPHILS % (AUTO) 4.8 % (0-6); HEMATOCRIT 37.3 % (37.9-51.0); HEMOGLOBIN 12.4 g/dL (13.5-17.0); LYMPHOCYTES % (AUTO) 19.5 % (13-45); MEAN CORPUSCULAR HEMOGLOBIN 30.5 pg (27.0-33.4); MEAN CORPUSCULAR HGB CONC 33.3 g/dL (32.0-36.0); MEAN CORPUSCULAR VOLUME 92 fl (80-97); MONOCYTES % (AUTO) 9.2 % (3-13); PLATELET COUNT 198 10^3/uL (150-450); RED BLOOD COUNT 4.07 10^6/uL (4.35-5.55); RED CELL DISTRIBUTION WIDTH 15.1 % (11.5-14.0); SEGMENTED NEUTROPHILS % (AUTO) 65.9 % (42-78); TOTAL CELLS COUNTED % (AUTO) 100 %; WHITE BLOOD COUNT 6.9 10^3/uL (4.0-10.5)
--- NOTE | 2018-08-11 16:46 | RADIOLOGY REPORT (SQ) ---
EXAM DESCRIPTION: PELVIS AP COMPLETED DATE/TIME: 08/11/2018 4:34 pm REASON FOR STUDY: Rt hip pain increased. Has fx at ilium COMPARISON: PET-CT 06/11/2018 Right hip films 06/01/2018, 05/15/2018 NUMBER OF VIEWS: One view TECHNIQUE: AP Pelvis LIMITATIONS: None. FINDINGS: MINERALIZATION: Lytic lesion in the right acetabular roof is present from metastatic disea se. This is similar compared to PET-CT 06/11/2018. There is lucency along the medial right acetabulu m, marked with an arrow. This could represent a hairline nondisplaced fracture through the right hem ipelvis. Consider CT for followup. HIPS: Right and left proximal femurs are intact. Lytic lesion right acetabular roof PELVIS AND SACRUM: Lytic lesion right acetabular roof. Sacrum intact PUBIS AND ISCHIUM: No acute fracture. LOWER LUMBAR SPINE: No significant findings as visualized. SOFT TISSUES: No findings. OTHER: No other significant finding. IMPRESSION: Lytic lesion in the right acetabular roof, similar compared to PET-CT 06/11/2018. There is lucency along the medial right acetabulum marked with an arrow. This could represent a hair line nondisplaced pathological fracture. Consider CT for followup COMMENT: Pelvic fractures are often occult on plain radiographs. If strong clinical suspicion for f racture, recommend CT or MR. TECHNICAL DOCUMENTATION: JOB ID: [id number] [employer]- All Rights Reserved Reading location - IP/workstation name: [email or web address]
[2018-08-11 16:59] LABS: ALANINE AMINOTRANSFERASE 47 U/L (21-72); ALBUMIN 4.2 g/dL (3.5-5.0); ALKALINE PHOSPHATASE 152 U/L (38-126); ANION GAP 10 (5-19); ASPARTATE AMINO TRANSFERASE 25 U/L (17-59); BILIRUBIN,DIRECT 0.3 mg/dL (0.0-0.4); BILIRUBIN,TOTAL 0.4 mg/dL (0.2-1.3); BLOOD UREA NITROGEN 26 mg/dL (7-20); CALCIUM 10.1 mg/dL (8.4-10.2); CARBON DIOXIDE 31 mmol/L (22-30); CHLORIDE 98 mmol/L (98-107); GLUCOSE 106 mg/dL (75-110); POTASSIUM 4.7 mmol/L (3.6-5.0); SODIUM 139.2 mmol/L (137-145); TOTAL PROTEIN 7.3 g/dL (6.3-8.2)
--- NOTE | 2018-08-11 22:11 | RADIOLOGY REPORT (SQ) ---
EXAM DESCRIPTION: CT PELVIS WITH IV CONTRAST COMPLETED DATE/TME: 08/11/2018 20:52 CLINICAL HISTORY: 52 years, Male, follow up xray read COMPARISON: Prior plain radiograph from earlier the same day; PET/CT from 06/11/2018 TECHNIQUE: Contrast enhanced CT of the pelvis was performed. Coronal and sagittal reformations were created. Images stored on PACS. All CT scanners at this facility use dose modulation, iterative reconstruction, and/or weight based dosing when appropriate to reduce radiation dose to as low as reasonably achievable (ALARA). [facility]: Dose Right [facility]: CareDose [facility]: Dose Right [facility]: Teradose 4D [facility]: ConjuGon LIMITATIONS: None. FINDINGS: Visualized portions of the small and large bowel appear normal in caliber without areas of focal wall thickening. The appendix is normal. The urinary bladder appears well distended and shows no suspicious finding. There are small bilateral fat-containing inguinal hernias. A mildly enlarged left inguinal lymph node is noted measuring 2.6 x 1.3 cm in size on image 38 of series 3. This appears stable from the PET/CT dated 06/11/2018. Bone windows show moderate facet arthropathy about the lower lumbar spine. There is an expansile lytic lesion located within the right acetabular roof with associated cortical breakthrough about the lateral aspect of the acetabulum. A linear lucency appears to traverse the acetabular roof, demonstrating smooth/sclerotic margins, suggesting that this is a subacute to chronic deformity. Likewise, this abnormality was more acute appearing on the PET/CT dated 06/11/2018. Superimposed periostitis is noted about the edge of the fracture plane as it courses beyond the cortex. Overall, this lytic lesion appears increased in size from the previous exam dated 06/11/2018. However, no definite fracture corresponds to the abnormality seen on the recent plain radiograph. As such, this abnormality most likely either corresponded to periostitis or the expansile nature of the lytic lesion. IMPRESSION: Enlarging expansile lytic lesion located within the right acetabular roof with associated subacute to chronic pathologic fracture deformity, consistent with metastatic disease. No superimposed acute fracture deformity is identified. As such, the abnormality seen on the recent plain radiograph likely either corresponded to periostitis or the expansile nature of the lytic lesion. Left inguinal lymph node enlargement, indeterminate though stable from 06/11/2018. Mild soft tissue inflammatory stranding is noted about the superficial soft tissues of the left lower quadrant, nonspecific. TECHNICAL DOCUMENTATION: Quality ID # [id number]: Final reports with documentation of one or more dose reduction techniques (e.g., Automated exposure control, adjustment of the mA and/or kV according to patient size, use of iterative reconstruction technique) copyright 2011 [employer]- All Rights Reserved
[2018-08-12] MEDS ORDERED: HYDROMORPHONE HCL INJ/PF 2 MG/ML AMPULE IV PRN (01:52)
--- NOTE | 2018-08-12 01:53 | ER Document Report ---
ED General - General Chief Complaint: Hip Pain Stated Complaint: RIGHT HIP PAIN Time Seen by Provider: 08/11/18 16:07 Primary Care Provider: KENYON MITCHELL MD [Primary Care Provider] - Follow up as needed Notes: Patient is a 52-year-old male with past medical history of with no metastases to the right hip who presents with ongoing right hip pain. States that he chronically has severe pain to the right hip secondary to lytic lesions within the hip with an associated pathologic fracture but that the pain has been much worse over the last 3 to 4 days. Describes it as a severe, throbbing, constant pain to the hip dramatically worsened by any attempted bearing weight. He has been taking oxycodone 10 mg with minimal improvement of the pain is following with. Orthopedic oncology at [facility]. Has had radiation therapy to the hip and states that his pain feels similar to the way it did prior to radiation therapy. Denies any increased swelling to the extremity, abdominal pain, fever or constitutional symptoms. TRAVEL OUTSIDE OF THE [place] IN LAST 30 DAYS: No - Related Data Allergies/Adverse Reactions: No Known Allergies Allergy (Verified 08/06/18 15:43) Past Medical History - General Information source: Patient - Social History Smoking Status: Never Smoker Frequency of alcohol use: None Drug Abuse: None Lives with: Spouse/Significant other Family History: Reviewed & Not Pertinent Patient has suicidal ideation: No Patient has homicidal ideation: No - Past Medical History Cardiac Medical History: Reports: Hx Hypercholesterolemia, Hx Hypertension Pulmonary Medical History: Denies: Hx Tuberculosis Renal/ Medical History: Denies: Hx Peritoneal Dialysis Malignancy Medical History: Reports Hx Renal (Kidney) Cancer Musculoskeletal Medical History: Reports Hx Arthritis Skin Medical History: Reports Hx Cellulitis Psychiatric Medical History: Reports: Hx Bipolar Disorder, Hx Depression Past Surgical History: Reports: Hx Cholecystectomy, Hx Herniorrhaphy, Hx Kidney (Renal Surgery) - nephrectomy, Hx Tonsillectomy. Denies: Hx Pacemaker - Immunizations Hx Diphtheria, Pertussis, Tetanus Vaccination: Yes Hx Pneumococcal Vaccination: 03/21/00 Review of Systems - Review of Systems Notes: Constitutional: Negative for fever. HENT: Negative for sore throat. Eyes: Negative for visual changes. Cardiovascular: Negative for chest pain. Respiratory: Negative for shortness of breath. Gastrointestinal: Negative for abdominal pain, vomiting or diarrhea. Genitourinary: Negative for dysuria. Musculoskeletal: Positive for right hip pain Skin: Negative for rash. Neurological: Negative for headaches, weakness or numbness. 10 point ROS negative except as marked above and in HPI. Physical Exam - Vital signs Vitals: Temp Pulse Resp BP Pulse Ox 98.3 F 95 16 108/66 95 08/11/18 15:31 08/11/18 15:31 08/11/18 15:31 08/11/18 15:31 08/11/18 15:31 Interpretation: Normal Notes: PHYSICAL EXAMINATION: GENERAL: Appears moderately uncomfortable but in no acute distress HEAD: Atraumatic, normocephalic. EYES: Pupils equal round and reactive to light, extraocular movements intact, sclera anicteric, conjunctiva are normal. ENT: nares patent, oropharynx clear without exudates. Moist mucous membranes. NECK: Normal range of motion, supple without lymphadenopathy LUNGS: Breath sounds clear to auscultation bilaterally and equal. No wheezes rales or rhonchi. HEART: Regular rate and rhythm without murmurs ABDOMEN: Soft, obese abdomen, nontender, normoactive bowel sounds. No guarding, no rebound. No masses appreciated. EXTREMITIES: 2+ pitting edema in the bilateral lower 70s that is equal and symmetric. No leg shortening. Exquisite tenderness on palpation of the right hip joint. NEUROLOGICAL: No focal neurological deficits. Moves all extremities spontaneously and on command. PSYCH: Normal mood, normal affect. SKIN: Warm, Dry, normal turgor, no rashes or lesions noted. Course - Re-evaluation Re-evalutation: 08/12/18 01:53 Patient presents with acute on chronic pain to the right hip that is been worse within the past [address] of the pelvis does demonstrate a widening and expanding lytic lesion in the acetabulum worse than the PET scan in May likely accounting for the patient's increased pain with evidence of chronic fracture without any superimposed acute fracture. The remainder of the examination is without any acute findings. 2+ pitting edema in the bilateral lower extremities is equal and symmetric, do not clinically suspect DVT. Patient pain is isolated exclusively to the hip. Patient will follow up with his surgical oncologist at [facility]. At this time will discharge with return precautions and follow-up recommendations. Verbal discharge instructions given a the bedside and opportunity for questions given. Medication warnings reviewed. Patient is in agreement with this plan and has verbalized understanding of return precautions and the need for primary care follow-up in the next 24-72 hours. - Vital Signs Vital signs: Temp Pulse Resp BP Pulse Ox 98.3 F 79 16 105/62 93 08/11/18 15:31 08/12/18 01:50 08/11/18 15:31 08/12/18 01:50 08/12/18 01:50 - Laboratory Result Diagrams: 08/11/18 16:25 08/11/18 16:25 Laboratory results interpreted by me: 08/11/18 08/11/18 16:25 16:25 RBC 4.07 L Hgb 12.4 L Hct 37.3 L RDW 15.1 H Carbon Dioxide 31 H BUN 26 H Creatinine 1.30 H Est GFR (Non-Af Amer) 58 L Alkaline Phosphatase 152 H - Diagnostic Test Radiology reviewed: Reports reviewed Discharge - Discharge Clinical Impression: Acute on chronic right hip pain, Lytic bone lesion of hip Condition: Stable Disposition: HOME, SELF-CARE Additional Instructions: Your CT scan does show that you have an expanding lytic lesion in your right hip. Please follow-up with your orthopedic oncologist regarding today's findings. Follow with your pain management doctor regarding pain control at home. Return if you develop fever, worsening pain, persistent vomiting, weakness, numbness or any other symptoms that are worrisome to you. Referrals: KENYON MITCHELL MD [Primary Care Provider] - Follow up as needed
[2018-08-12 02:07] VITALS: BP 105/62
== END 2018-08-12 02:07 | disposition home or self-care (01) ==
LOC: ER 14:56
DX: M25.551 Pain in right hip (principal); M89.9 Disorder of bone, unspecified; G89.29 Other chronic pain; E78.00 Pure hypercholesterolemia, unspecified; I10 Essential (primary) hypertension; Z90.49 Acquired absence of other specified parts of digestive tract
CPT/HCPCS: 36415; 72170; 72193; 80053; 85025; 99284

== ENCOUNTER → 2018-10-22 | Outpatient (CLI) | payer MEDICAID, MEDICARE ==
--- NOTE | 2018-10-23 09:09 | RADIOLOGY REPORT (SQ) ---
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 TECHNIQUE: Blood glucose level was verified. Above dose of FDG was injected intravenously. 2-D seg mented attenuation correction images were obtained from the base of the skull to the midthighs. Nonc ontrast CT images were obtained for attenuation correction and fusion with emission images. CT image s were performed without oral or intravenous contrast and are not sensitive for parenchymal lesions. A series of overlapping emission PET images were obtained. Images reviewed and manipulated at [facility] work station by the radiologist. Images stored on PACS. LIMITATIONS: None. FINDINGS: HEAD AND NECK: No areas of abnormal metabolic activity in the soft tissues of the head and neck. CHEST: No areas of abnormal metabolic activity in the chest. No worrisome pulmonary nodules. ABDOMEN AND PELVIS: No areas of abnormal metabolic activity in the abdomen or pelvis. Expected physi ologic activity is present in the genitourinary system and bowel. Post left nephroureterectomy. PROXIMAL LOWER EXTREMITIES: No areas of abnormal metabolic activity in the soft tissues of the lower extremities. BONES: Extensive skeletal metastatic lesions are present as follows: C4 central posterior vertebral body SUV 2.1 Rightward T1 vertebral body and pedicle SUV 4.3 T2 posterior vertebral body SUV 2.1 T7 central posterior vertebral body SUV 2.0 And left T12 pedicle and vertebral body SUV 1.9 Pathologic fracture through a left bony glenoid lesion treated with bone cement, metabolic activity o f residual tumor SUV 4.1 Lytic lesion in the sternum, SUV 4.1 Pathologic fracture through the right acetabular roof with metabolic activity SUV 5.2 Left posterior innominate bone at the level of the SI joint, SUV 5.[address] FINDINGS: Post cholecystectomy. Post left nephro ureterectomy OTHER: Liver background activity 2.0 SUV. Blood pool background activity 1.5 SUV IMPRESSION: Multiple bony metastatic lesions as above. TECHNICAL DOCUMENTATION: JOB ID: [id number] [employer]- All Rights Reserved Reading location - IP/workstation name: [email or web address]
== END ==
LOC: RAD 15:44
PROVIDERS: ATTEND Internal Medicine Medical Oncology
DX: C64.2 Malignant neoplasm of left kidney, except renal pelvis (principal)
CPT/HCPCS: 78815; A9552

== ENCOUNTER 2018-11-19 21:46 | Emergency (ER) | payer MEDICARE, MEDICAID ==
[2018-11-19] MEDS ORDERED: HYDROMORPHONE HCL INJ/PF 2 MG/ML AMPULE IV ONE (22:21)
[2018-11-19 23:32] LABS: ANION GAP 11 (5-19); BLOOD UREA NITROGEN 20 mg/dL (7-20); CALCIUM 9.1 mg/dL (8.4-10.2); CARBON DIOXIDE 27 mmol/L (22-30); CHLORIDE 97 mmol/L (98-107); GLUCOSE 112 mg/dL (75-110); POTASSIUM 4.6 mmol/L (3.6-5.0)
--- NOTE | 2018-11-19 23:41 | RADIOLOGY REPORT (SQ) ---
EXAM DESCRIPTION: XR HIP 2 OR MORE VIEWS COMPLETED DATE/TME: 11/19/2018 22:21 CLINICAL HISTORY: 53 years, Male, cancer, mets, pain COMPARISON: None. NUMBER OF VIEWS: Two TECHNIQUE: Frontal and lateral radiographs of the right hip were performed. LIMITATIONS: None. FINDINGS: Again visualized is an expansile lytic lesion located about the right acetabular roof, better appreciated on recent PET/CT dated 10/22/2018. This demonstrates cement packing. A few scattered phleboliths project over the pelvic inlet. No additional osseous anomalies are appreciated; however, an underlying pathologic fracture deformity involving the right acetabulum would be difficult to exclude. IMPRESSION: Persistent expansile lytic lesion located within the right acetabular roof, status post cement packing. No obvious acute osseous anomaly. However, an underlying pathologic fracture deformity involving the right acetabulum would be difficult to exclude on these plain radiographs. copyright 2010 [employer]- All Rights Reserved
[2018-11-19 23:52] LABS: ABSOLUTE BASOPHILS # (AUTO) 0.1 10^3/uL (0.0-0.2); ABSOLUTE EOSINOPHILS # (AUTO) 0.3 10^3/uL (0.0-0.6); ABSOLUTE LYMPHOCYTES (AUTO) 0.8 10^3/uL (0.5-4.7); ABSOLUTE MONOCYTES (AUTO) 0.6 10^3/uL (0.1-1.4); ABSOLUTE NEUT (AUTO) 4.9 10^3/uL (1.7-8.2); BASOPHILS % (AUTO) 0.8 % (0-2); EOSINOPHILS % (AUTO) 4.8 % (0-6); HEMATOCRIT 39.8 % (37.9-51.0); HEMOGLOBIN 13.5 g/dL (13.5-17.0); LYMPHOCYTES % (AUTO) 11.9 % (13-45); MEAN CORPUSCULAR HEMOGLOBIN 30.9 pg (27.0-33.4); MEAN CORPUSCULAR HGB CONC 33.8 g/dL (32.0-36.0); MEAN CORPUSCULAR VOLUME 91 fl (80-97); MONOCYTES % (AUTO) 9.4 % (3-13); PLATELET COUNT 174 10^3/uL (150-450); RED BLOOD COUNT 4.36 10^6/uL (4.35-5.55); RED CELL DISTRIBUTION WIDTH 14.4 % (11.5-14.0); SEGMENTED NEUTROPHILS % (AUTO) 73.1 % (42-78); TOTAL CELLS COUNTED % (AUTO) 100 %; WHITE BLOOD COUNT 6.7 10^3/uL (4.0-10.5)
[2018-11-20] MEDS ORDERED: HYDROMORPHONE HCL INJ/PF 2 MG/ML AMPULE IV ONE ×2 (00:37→04:08)
--- NOTE | 2018-11-20 01:34 | RADIOLOGY REPORT (SQ) ---
EXAM DESCRIPTION: CT PELVIS WITHOUT IV CONTRAST COMPLETED DATE/TME: 11/20/2018 00:33 CLINICAL HISTORY: 53 years, Male, R hip pain. COMPARISON: CT pelvis 08/11/2018 TECHNIQUE: Axial images of the pelvis were performed without the use of intravenous contrast, with sagittal and coronal reformatted images. Images stored on PACS. All CT scanners at this facility use dose modulation, iterative reconstruction, and/or weight based dosing when appropriate to reduce radiation dose to as low as reasonably achievable (ALARA). [facility]: Dose Right [facility]: CareDose [facility]: Dose Right [facility]: Teradose 4D [facility]: Smart [employer] LIMITATIONS: None. FINDINGS: Since the prior CT scan, there has been cement packing of the lytic lesion involving the roof of the right acetabulum. This lytic lesion has gotten considerably larger, since the prior CT scan. The current study shows a nondisplaced fracture involving the anterior column of the right acetabulum, compatible with a pathologic fracture. This is a new finding, as compared with the prior study. The soft tissues and musculature surrounding the right acetabular lesion has gotten larger since prior scan, suggesting tumor infiltration of these tissues. The lytic lesion in the left posterior iliac bone has gotten larger, since the prior scan. Also noted is a new lytic lesion in the anterior right iliac bone. IMPRESSION: Lytic metastases have progressed, since the prior CT scan. There is a pathologic fracture involving the anterior column of the right acetabulum. Findings are suspicious for tumor invasion of the soft tissues surrounding the right acetabular lytic lesion. TECHNICAL DOCUMENTATION: Quality ID # [id number]: Final reports with documentation of one or more dose reduction techniques (e.g., Automated exposure control, adjustment of the mA and/or kV according to patient size, use of iterative reconstruction technique) copyright 2010 [employer]- All Rights Reserved
[2018-11-20 04:02] VITALS: BP 110/69
--- NOTE | 2018-11-20 05:53 | ER Document Report ---
Entered by PAIGE OMLOS SCRIBE 11/19/18 1854 Acting as scribe for:KI BRAND DO ED General - General Chief Complaint: Pain Stated Complaint: RIGHT HIP PAIN Time Seen by Provider: 11/19/18 22:07 Primary Care Provider: KENYON MITCHELL MD [Primary Care Provider] - Follow up tomorrow Mode of Arrival: Ambulatory Information source: Patient Notes: Patient is a 53 year old male with renal cancer that presents to the emergency department today with complaints of right hip pain. Patient states he has chronic right hip pain as he has had it "cemented" in the past. Patient states he was started on a new chemotherapy drug and he is unsure if it is related to this pain. Patient states he took his at home dilaudid and methadone tonight at 8 p.m. prior to arrival. Patient states this helped "a little bit". Patient also mentions a rash. Patient denies any falls, trauma, fevers, or vomiting. TRAVEL OUTSIDE OF THE [place] IN LAST 30 DAYS: No - Related Data Allergies/Adverse Reactions: No Known Allergies Allergy (Verified 08/06/18 15:43) Past Medical History - General Information source: Patient - Social History Smoking Status: Never Smoker Cigarette use (# per day): No Frequency of alcohol use: None Drug Abuse: None Lives with: Family Family History: Reviewed & Not Pertinent Patient has suicidal ideation: No Patient has homicidal ideation: No - Past Medical History Cardiac Medical History: Reports: Hx Hypercholesterolemia, Hx Hypertension Malignancy Medical History: Reports Hx Renal (Kidney) Cancer Musculoskeletal Medical History: Reports Hx Arthritis Skin Medical History: Reports Hx Cellulitis Psychiatric Medical History: Reports: Hx Bipolar Disorder, Hx Depression Past Surgical History: Reports: Hx Cholecystectomy, Hx Herniorrhaphy, Hx Kidney (Renal Surgery) - nephrectomy, Hx Orthopedic Surgery - l shldr cement, Hx Tonsillectomy - Immunizations Hx Diphtheria, Pertussis, Tetanus Vaccination: Yes Hx Pneumococcal Vaccination: 03/21/00 Review of Systems - Review of Systems Constitutional: denies: Fever EENT: No symptoms reported Cardiovascular: No symptoms reported Respiratory: No symptoms reported Gastrointestinal: denies: Vomiting Genitourinary: No symptoms reported Male Genitourinary: No symptoms reported Musculoskeletal: See HPI, Joint pain - right hip Skin: See HPI, Rash Hematologic/Lymphatic: No symptoms reported Neurological/Psychological: No symptoms reported -: Yes All other systems reviewed and negative Physical Exam - Vital signs Vitals: Temp Pulse Resp BP Pulse Ox 98.9 F 90 18 124/79 95 11/19/18 21:54 11/19/18 21:54 11/19/18 21:54 11/19/18 21:54 11/19/18 21:54 Course - Re-evaluation Re-evalutation: 11/20/18 01:54 called count includes the [facility] 11/20/18 04:10 Orthopedic oncology from count includes the [facility] returned call after looking at CT pelvis. There does not appear to be any reconstructive option at this point. Fracture appears old. Spoke to oncology service who do not have any further recommendations for pain control. Spoke with Dr. Mitchell who does not have any further recommendations for pain control at this time. Patient is a 53-year-old male with a history of kidney cancer and extensive bony metastases who comes in for increase of right hip pain. Had a lengthy discussion with patient and family regarding CT report increase of metastases and fracture that is likely not new and appears nondisplaced and stable. Patient was offered admission for pain control but would prefer to go home. He has pain medication at home and will follow-up with his doctor on Tuesday. The orthopedic oncology service will be calling him if there are any further options that they can offer regarding increase of cement or anything else. Patient is agreeable to this plan and would prefer to go home. Stable for discharge. Neurovascularly intact. Return if any further concerns. 11/20/18 05:52 - Vital Signs Vital signs: Temp Pulse Resp BP Pulse Ox 98.9 F 103 H 18 110/69 97 11/19/18 21:54 11/20/18 04:01 11/19/18 21:54 11/20/18 04:01 11/20/18 04:01 - Laboratory Result Diagrams: 11/19/18 22:40 11/19/18 22:40 Laboratory results interpreted by me: 11/19/18 11/19/18 22:40 22:40 RDW 14.4 H Lymph % (Auto) 11.9 L Sodium 135.4 L Chloride 97 L Glucose 112 H Critical Care Note - Critical Care Note Total time excluding time spent on procedures (mins): 60 - Evaluation and management of cancer related bone metastasis and associated lesions, fractures, and bone pain, coronation with [facility], multiple phone calls, discussion with patient and family Discharge - Discharge Clinical Impression: Cancer related pain Metastasis Qualifiers: Area of secondary neoplastic involvement: bone Qualified Code(s): C79.51 - Secondary malignant neoplasm of bone Condition: Stable Disposition: HOME, SELF-CARE Additional Instructions: Please follow-up with your orthopedic oncologist at [facility]. Referrals: KENYON MITCHELL MD [Primary Care Provider] - Follow up tomorrow I personally performed the services described in the documentation, reviewed and edited the documentation which was dictated to the scribe in my presence, and it accurately records my words and actions.
== END 2018-11-20 04:45 | disposition home or self-care (01) ==
LOC: ER 21:46
DX: G89.3 Neoplasm related pain (acute) (chronic) (principal); C79.51 Secondary malignant neoplasm of bone; C64.9 Malignant neoplasm of unspecified kidney, except renal pelvis; M84.459A Pathological fracture, hip, unspecified, initial encounter for fracture; M25.551 Pain in right hip; Z79.891 Long term (current) use of opiate analgesic; R21 Rash and other nonspecific skin eruption; I10 Essential (primary) hypertension; Z90.5 Acquired absence of kidney
CPT/HCPCS: 96376; 99285; 96374; 36415; 87040; 82962; 85025; 80048; 73502; 72192; J1170 ×2

== ENCOUNTER 2018-11-24 23:03 | Emergency (ER) | payer MEDICARE, MEDICAID ==
[2018-11-25] MEDS ORDERED: HYDROMORPHONE HCL INJ/PF 2 MG/ML AMPULE IV ONE ×2 (01:51→03:45)
--- NOTE | 2018-11-25 01:56 | ER Document Report ---
ED General - General Chief Complaint: Fall Injury Stated Complaint: POSSIBLE KNEE INJURY Time Seen by Provider: 11/25/18 01:40 Primary Care Provider: KENYON MITCHELL MD [Primary Care Provider] - Follow up as needed Notes: Patient is a pleasant 53-year-old male who presents with complaint of right hip pain. Patient was seen in November 19. At that time he had new lytic lesions in the right hip. Discussion about possible transfer to [facility]. According to Dr. Baker's note at that time the patient said he want to go home. The family says they thought that the patient was getting transferred to [facility] as they later recieved a call from Dr. Mcnally's ffice asking why the patient was never sent to [facility]. He is followed by Dr. Villa his radiation oncologist there regards to ablations for his hip. He is also been seen by Dr. Mcnally, oncologist at [facility]. Patient went home. Patient says he fell getting out of bed yesterday. He has had intractable pain is been very uncomfortable. He does have a history of renal cancer. Is currently on immunotherapy. He says that the cancer spread notes what he has a lytic lesions in his hip. TRAVEL OUTSIDE OF THE [place] IN LAST 30 DAYS: No - Related Data Allergies/Adverse Reactions: No Known Allergies Allergy (Verified 08/06/18 15:43) Past Medical History - Social History Smoking Status: Unknown if Ever Smoked Frequency of alcohol use: None Drug Abuse: None Family History: Reviewed & Not Pertinent - Past Medical History Cardiac Medical History: Reports: Hx Hypercholesterolemia, Hx Hypertension Pulmonary Medical History: Denies: Hx Tuberculosis Renal/ Medical History: Denies: Hx Peritoneal Dialysis Malignancy Medical History: Reports Hx Renal (Kidney) Cancer Musculoskeletal Medical History: Reports Hx Arthritis Skin Medical History: Reports Hx Cellulitis Psychiatric Medical History: Reports: Hx Bipolar Disorder, Hx Depression Past Surgical History: Reports: Hx Cholecystectomy, Hx Herniorrhaphy, Hx Kidney (Renal Surgery) - nephrectomy, Hx Orthopedic Surgery - l shldr cement, Hx Tonsillectomy. Denies: Hx Pacemaker - Immunizations Hx Diphtheria, Pertussis, Tetanus Vaccination: Yes Hx Pneumococcal Vaccination: 03/21/00 Review of Systems - Review of Systems Notes: My Normal Review Basic REVIEW OF SYSTEMS: CONSTITUTIONAL : Denies fever, chills, or sweats. Denies recent illness. RESPIRATORY: Denies cough, cold, or chest congestion. Denies shortness of breath, difficulty breathing, or wheezing. GASTROINTESTINAL: Denies abdominal pain. Denies nausea, vomiting, or diarrhea. GENITOURINARY: Denies difficulty urinating, painful urination, burning, frequency, or blood in urine. MUSCULOSKELETAL: Right hip pain SKIN: Denies rash or skin lesions. NEUROLOGICAL: Denies altered mental status or loss of consciousness. Denies headache. Denies weakness or paralysis or loss of use of either side. Denies problems with gait or speech. Denies sensory or motor loss. ALL OTHER SYSTEMS REVIEWED AND NEGATIVE. Physical Exam - Vital signs Vitals: Temp Pulse Resp BP Pulse Ox 98.7 F 87 20 142/88 H 92 11/24/18 23:34 11/24/18 23:34 11/24/18 23:34 11/24/18 23:34 11/24/18 23:34 - Notes Notes: General Appearance: Well nourished, alert, cooperative, no acute distress, moderate obvious discomfort. Vitals: reviewed, See vital signs table. Eyes: PERRL, EOMI, Conjuctiva clear Mouth: No decreasd moisture Lungs: No wheezing, No rales, No rhonci, No accessory muscle use, good air exchange bilaterally. Heart: Normal rate, Regular rythm, No murmur, no rub Abdomen: Normal BS, soft, No rigidity, No abdominal tenderness, No guarding, no rebound, no abdominal masses, no organomegaly Extremities: strength 5/5 in all extremities, good pulses in all extremities, pain with any attempt of movement of the right hip. Mild pain to palpation of the right knee and foot. No office deformity or swelling. Left lower extremity is nontender. Distal pulses are intact. Good capillary refill all toes of the right foot. Skin: warm, dry, appropriate color, skin breakdown in the inguinal region. Neuro: speech clear, oriented x 3, normal affect, responds appropriately to questions. Course - Re-evaluation Re-evalutation: 11/25/18 04:32 I did speak with the oncologist at [facility], Dr. Hewitt. She agrees to accept the patient for transfer. She accepts him we have of her attending, Dr. Ha Teixeira. They are in bed delay and therefore there will be some weight. We will continue to treat the patient's pain as we wait for bed availability. 11/25/18 06:00 Patient started feeling more comfortable after most recent dose of pain medicine. I did talk to his and asked her to go home and bring his home medications so that he can receive them while he is here waiting for transport. Some of the medications, such as his chemo pill, or rare and likely will not be kept at the hospital and therefore we can give him his home medications. His agrees with this and she will go home to get his meds. - Vital Signs Vital signs: Temp Pulse Resp BP Pulse Ox 98.0 F 66 16 154/97 H 93 11/25/18 03:53 11/25/18 03:53 11/25/18 03:53 11/25/18 03:53 11/25/18 03:53 - Laboratory Result Diagrams: 11/25/18 02:15 11/25/18 02:15 Laboratory results interpreted by me: 11/25/18 11/25/18 02:15 02:15 RDW 14.4 H Chloride 97 L Carbon Dioxide 34 H Glucose 73 L Alkaline Phosphatase 227 H Discharge - Discharge Clinical Impression: Cancer related pain, Inability to ambulate due to hip Hip pain Qualifiers: Laterality: right Qualified Code(s): M25.551 - Pain in right hip Condition: Stable Disposition: [facility] Referrals: KENYON MITCHELL MD [Primary Care Provider] - Follow up as needed
[2018-11-25 02:37] LABS: ABSOLUTE EOSINOPHILS # (AUTO) 0.2 10^3/uL (0.0-0.6); ABSOLUTE LYMPHOCYTES (AUTO) 0.8 10^3/uL (0.5-4.7); ABSOLUTE MONOCYTES (AUTO) 0.6 10^3/uL (0.1-1.4); ABSOLUTE NEUT (AUTO) 4.1 10^3/uL (1.7-8.2); BASOPHILS % (AUTO) 0.7 % (0-2); EOSINOPHILS % (AUTO) 3.7 % (0-6); HEMATOCRIT 39.9 % (37.9-51.0); HEMOGLOBIN 13.6 g/dL (13.5-17.0); LYMPHOCYTES % (AUTO) 13.9 % (13-45); MEAN CORPUSCULAR HEMOGLOBIN 30.7 pg (27.0-33.4); MEAN CORPUSCULAR HGB CONC 34.2 g/dL (32.0-36.0); MEAN CORPUSCULAR VOLUME 90 fl (80-97); MONOCYTES % (AUTO) 10.3 % (3-13); PLATELET COUNT 165 10^3/uL (150-450); RED BLOOD COUNT 4.45 10^6/uL (4.35-5.55); RED CELL DISTRIBUTION WIDTH 14.4 % (11.5-14.0); SEGMENTED NEUTROPHILS % (AUTO) 71.4 % (42-78); TOTAL CELLS COUNTED % (AUTO) 100 %; WHITE BLOOD COUNT 5.7 10^3/uL (4.0-10.5)
--- NOTE | 2018-11-25 02:49 | RADIOLOGY REPORT (SQ) ---
Pelvis and right hip total three view on 11/25/2018 CLINICAL INDICATION: Right hip pain COMPARISON: CT from 11/20/2018 FINDINGS: There is right-sided acetabular protrusio related to the patient's known lytic destructive right acetabular lesion. There is some injected methylmethacrylate again noted in the right superior acetabulum. The appearance of the right acetabulum and right hip appears stable compared with the recent CT. The patient's known lytic destructive lesion in the left iliac bone adjacent to the SI joint is subtly visualized on this exam as well. Patient has a known healing associated pathologic fracture with the left iliac bone from the prior CT. The patient has a known pathologic fracture of the right acetabulum on the recent CT. No acute fracture is noted by x-ray. 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
[2018-11-25 02:56] LABS: ALBUMIN 3.9 g/dL (3.5-5.0); ALKALINE PHOSPHATASE 227 U/L (38-126); ANION GAP 8 (5-19); ASPARTATE AMINO TRANSFERASE 29 U/L (17-59); BILIRUBIN,DIRECT 0.3 mg/dL (0.0-0.4); BILIRUBIN,TOTAL 0.5 mg/dL (0.2-1.3); BLOOD UREA NITROGEN 15 mg/dL (7-20); CALCIUM 9.5 mg/dL (8.4-10.2); CARBON DIOXIDE 34 mmol/L (22-30); CHLORIDE 97 mmol/L (98-107); GLUCOSE 73 mg/dL (75-110); POTASSIUM 4.8 mmol/L (3.6-5.0); TOTAL PROTEIN 7.2 g/dL (6.3-8.2)
[2018-11-25] MEDS: HYDROMORPHONE HCL INJ/PF 2 MG/ML AMPULE IV PRN ×4 (12:01→23:20)
[2018-11-26] MEDS: HYDROMORPHONE HCL INJ/PF 2 MG/ML AMPULE IV PRN ×4 (03:13→12:21)
[2018-11-26] MEDS ORDERED: NYSTATIN/DEXAMETH/DIPHEN SUSP 120 ML PO PRN (12:36)
[2018-11-26] MEDS ORDERED: CLOBETASOL PROPIONATE 0.05% CREAM 15 GM TP PRN (12:36)
[2018-11-26] MEDS ORDERED: DOXEPIN HCL 25 MG CAPSULE PO PRN (12:36)
[2018-11-26] MEDS ORDERED: FLUTICASONE NASAL SPRAY 50 MCG/SPRY 120 SPRAY/16 GM NASL SCH (12:45)
[2018-11-26] MEDS ORDERED: CETIRIZINE 10 MG TABLET PO SCH (12:45)
[2018-11-26] MEDS ORDERED: ATORVASTATIN CALCIUM 10 MG TABLET PO SCH (12:45)
--- NOTE | 2018-11-26 12:48 | ER Document Report ---
Doctor's Note Notes: 11/26/18 12:46 Patient and are concerned that the patient is still having pain and that he is not getting all of his home medications. I have verified the patient's home medications by going through all of the medications that they brought in and entered all of them except for his chemotherapy pill the Inlyta as well as he is vraylar 3 mg daily. The will administer these from the home medications at bedside. Otherwise patient's only complaint is that he is having continuing pain. Patient's home pain medications will be ordered. I have discussed the patient with transfer line at [facility]. They state that they are still in bed delay but that he will have the patient sometime after 7 PM this evening. Once the call with bed assignment we will get the patient set up for transport. GENERAL: Sleeping, awakens easily then is alert, interacts well. Shifting somewhat uncomfortably in the bed. HEAD: Normocephalic, atraumatic EYES: Pupils equal, round and reactive to light, extraocular movements intact. ENT: Oral mucosa moist, tongue midline. NECK: Full range of motion, supple, trachea midline. LUNGS: no respiratory distress. Lungs are clear to auscultation bilaterally, no wheezes rales or rhonchi CARDIAC: Heart shows regular rate and rhythm with no murmurs gallops or rubs. EXTREMITIES: Moves all 4 extremities spontaneously, no edema. No cyanosis. NEUROLOGICAL: Alert and oriented x3, normal speech. PSYCH: Normal mood, normal affect. SKIN: Warm, Dry, normal turgor 11/26/18 19:41 Bed assignment was received around 5 PM. Transport will not be able to be here until after shift change. No further complaints from family. All of the medications have been entered.
[2018-11-26] MEDS: PROPRANOLOL HCL 20 MG TABLET PO SCH ×2 (13:19→17:42)
[2018-11-26] MEDS: METFORMIN HCL 500 MG TABLET PO SCH ×2 (13:19→17:42)
[2018-11-26] MEDS: GABAPENTIN 300 MG CAPSULE PO SCH ×2 (13:19→17:42)
[2018-11-26] MEDS: BENZTROPINE MESYLATE 1 MG TABLET PO SCH ×2 (13:40→20:48)
[2018-11-26] MEDS: METHADONE HCL 10 MG TABLET PO SCH ×3 (13:40→21:12)
[2018-11-26] MEDS: HYDROMORPHONE HCL 2 MG TABLET PO PRN ×2 (14:57→19:51)
--- NOTE | 2018-11-26 20:47 | ER Document Report ---
Doctor's Note Notes: 11/26/18 20:47 Transport is here to take the patient to [place]. His vital signs are stable. He is comfortable. Patient is stable for transport.
[2018-11-26 21:30] VITALS: BP 136/87
== END 2018-11-26 21:00 | disposition short-term general hospital (02) ==
LOC: ER 23:03
DX: M25.551 Pain in right hip (principal); G89.3 Neoplasm related pain (acute) (chronic); C64.9 Malignant neoplasm of unspecified kidney, except renal pelvis; C79.9 Secondary malignant neoplasm of unspecified site; E78.00 Pure hypercholesterolemia, unspecified; I10 Essential (primary) hypertension; Z90.49 Acquired absence of other specified parts of digestive tract
CPT/HCPCS: 96376; 99285; 96374; 36415; 82962; 85025; 80053; A9270 ×9; J3490; J1170 ×2

== ENCOUNTER 2019-01-08 20:22 | Inpatient (IN) | payer MEDICARE, MEDICAID ==
[2019-01-08] MEDS ORDERED: RINGERS SOLUTION,LACTATED 1,000 ML IV ONE (21:25)
--- NOTE | 2019-01-08 21:30 | ER Document Report ---
ED General - General Chief Complaint: Altered Mental Status Stated Complaint: ALTERED MENTAL STATUS Time Seen by Provider: 01/08/19 21:22 Primary Care Provider: KENYON MITCHELL MD [Primary Care Provider] - Follow up as needed TRAVEL OUTSIDE OF THE [place] IN LAST 30 DAYS: No - HPI Notes: Note history is limited, patient is extremely altered. 53-year-old male with a history of renal cell carcinoma, prior nephrectomy with subsequent spread to bone presents with being altered. All history comes via his mother. She states that he has been confused and somewhat altered with prob lems with speech and other issues since he started on oral chemotherapy several weeks ago. However today and yesterday was much more somnolent than normal. Difficult to arouse and more altered than she thinks he normally should be. He has had no recent fall. He has a history of right hip fracture which is nonoperative and will not heal and he is now nonambulatory. She does not think he has had fever, is not had anything really to eat or drink over the last 24 hours. She called EMS for assistance. Apparently the EMS dispatcher instructed her to administer 4 mg of intranasal Narcan. This caused the patient become extremely agitated and belligerent, prompting EMS to administer 3 mg of Versed for behavioral control. - Related Data Allergies/Adverse Reactions: No Known Allergies Allergy (Verified 08/06/18 15:43) Past Medical History - Social History Smoking Status: Unknown if Ever Smoked Family History: Reviewed & Not Pertinent Patient has suicidal ideation: No Patient has homicidal ideation: No - Past Medical History Cardiac Medical History: Reports: Hx Hypercholesterolemia, Hx Hypertension Pulmonary Medical History: Denies: Hx Tuberculosis Renal/ Medical History: Denies: Hx Peritoneal Dialysis Malignancy Medical History: Reports Hx Renal (Kidney) Cancer Musculoskeletal Medical History: Reports Hx Arthritis Skin Medical History: Reports Hx Cellulitis Psychiatric Medical History: Reports: Hx Bipolar Disorder, Hx Depression Past Surgical History: Reports: Hx Cholecystectomy, Hx Herniorrhaphy, Hx Kidney (Renal Surgery) - nephrectomy, Hx Orthopedic Surgery - l shldr cement, Hx Tonsillectomy. Denies: Hx Pacemaker - Immunizations Hx Diphtheria, Pertussis, Tetanus Vaccination: Yes Hx Pneumococcal Vaccination: 03/21/00 Review of Systems - Review of Systems -: Yes ROS unobtainable due to patient's medical condition Physical Exam - Vital signs Vitals: Temp Pulse Resp BP Pulse Ox 99.1 F 96 22 H 122/74 99 01/08/19 20:30 01/08/19 20:30 01/08/19 20:30 01/08/19 20:30 01/08/19 20:30 - Notes Notes: General: Ill-appearing, moderate distress, dry mucosa HEENT: Normocephalic, atraumatic. Pupils equal round reactive to light. No JVD. Chest: No trauma. Respiratory: Good air exchange, normal excursion. Cardiac: Regular rhythm. No murmurs or gallops. Abdomen: Soft, benign. Nondistended. Nontender. Back: No asymmetry or gross abnormality. Motor: Decreased but symmetric power and tone. Neurologic: To person, obey simple commands, withdraws to pain x4. Is not, cooperate with complicated instructions. Speech at times is nonsensical or inappropriate. No queta dysarthria. Vascular: Well perfused. Normal peripheral pulses. Skin: No petechiae or purpura. Course - Re-evaluation Re-evalutation: 01/08/19 21:29 Ill-appearing 53-year-old male with altered mental status unclear etiology. Consider underlying structural, metabolic, endocrine or infectious etiologies. We will proceed with broad laboratory evaluation, x-ray, CT imaging, fluids, she will exams and reassess. 01/09/19 01:08 Labs reviewed, CBC and chemistries unremarkable except for chronic renal insufficiency. Chest x-ray unremarkable. CT imaging the brain shows no acute abnormality. Urine drug screen positive for methadone, benzodiazepines, marijuana. Patient did receive Versed from EMS. Patient remains with significant encephalopathy, acute on chronic, at this point he will be admitted to the [facility] for continued hydration and work-up. I spoke with Dr. Mitchell. - Vital Signs Vital signs: Temp Pulse Resp BP Pulse Ox 99.1 F 96 14 124/92 H 97 01/08/19 20:30 01/08/19 20:30 01/08/19 22:02 01/08/19 23:02 01/08/19 23:02 - Laboratory Result Diagrams: 01/08/19 20:36 01/08/19 20:36 Laboratory results interpreted by me: 01/08/19 01/08/19 20:36 20:36 RDW 16.4 H Glucose 74 L AST 78 H Alkaline Phosphatase 234 H - EKG Interpretation by Me EKG shows normal: Sinus rhythm, Crocker, Intervals - Nonspecific ST-T changes Discharge - Discharge Clinical Impression: Encephalopathy acute Condition: Serious Disposition: ADMITTED OBSERVATION Admitting Provider: [facility] Unit Admitted: IMCU Referrals: KENYON MITCHELL MD [Primary Care Provider] - Follow up as needed
[2019-01-08 22:32] LABS: ABSOLUTE EOSINOPHILS # (AUTO) 0.2 10^3/uL (0.0-0.6); ABSOLUTE LYMPHOCYTES (AUTO) 1.4 10^3/uL (0.5-4.7); ABSOLUTE MONOCYTES (AUTO) 0.7 10^3/uL (0.1-1.4); ABSOLUTE NEUT (AUTO) 6.4 10^3/uL (1.7-8.2); BASOPHILS % (AUTO) 0.4 % (0-2); HEMATOCRIT 47.1 % (37.9-51.0); LYMPHOCYTES % (AUTO) 15.6 % (13-45); MEAN CORPUSCULAR HEMOGLOBIN 30.9 pg (27.0-33.4); MEAN CORPUSCULAR VOLUME 91 fl (80-97); MONOCYTES % (AUTO) 8.1 % (3-13); PLATELET COUNT 267 10^3/uL (150-450); RED BLOOD COUNT 5.18 10^6/uL (4.35-5.55); RED CELL DISTRIBUTION WIDTH 16.4 % (11.5-14.0); SEGMENTED NEUTROPHILS % (AUTO) 73.9 % (42-78); TOTAL CELLS COUNTED % (AUTO) 100 %; WHITE BLOOD COUNT 8.7 10^3/uL (4.0-10.5)
--- NOTE | 2019-01-08 22:40 | RADIOLOGY REPORT (SQ) ---
EXAM DESCRIPTION: XR CHEST 1 VIEW COMPLETED DATE/TME: 01/08/2019 21:23 CLINICAL HISTORY: 53 years Male, AMS COMPARISON: None. NUMBER OF VIEWS/TECHNIQUE: 1/AP FINDINGS: Clear lungs of adequate volume, and normal cardiac silhouette. No pneumothorax. Stable bony thorax. High attenuation bone cement/artifact at the left glenoid. Probable left glenoid deformity indicative of prior injury. IMPRESSION: No acute cardiopulmonary findings.
[2019-01-08 23:03] LABS: ALKALINE PHOSPHATASE 234 U/L (38-126); ANION GAP 13 (5-19); ASPARTATE AMINO TRANSFERASE 78 U/L (17-59); BILIRUBIN,DIRECT 0.2 mg/dL (0.0-0.4); BILIRUBIN,TOTAL 0.4 mg/dL (0.2-1.3); BLOOD UREA NITROGEN 15 mg/dL (7-20); CALCIUM 9.4 mg/dL (8.4-10.2); CARBON DIOXIDE 26 mmol/L (22-30); CHLORIDE 99 mmol/L (98-107); GLUCOSE 74 mg/dL (75-110); POTASSIUM 4.3 mmol/L (3.6-5.0); TOTAL PROTEIN 7.5 g/dL (6.3-8.2)
[2019-01-08 23:09] LABS: ANISOCYTOSIS 1+; PLATELET COMMENT ADEQUATE; PLATELET LARGE PRESENT
[2019-01-09 00:03] LABS: APPEARANCE,URINE CLEAR; BILIRUBIN,URINE NEGATIVE (NEGATIVE); COLOR,URINE YELLOW; GLUCOSE, URINE NEGATIVE (NEGATIVE); KETONES,URINE NEGATIVE (NEGATIVE); LEUKOCYTE ESTERASE,URINE NEGATIVE (NEGATIVE); NITRITE,URINE NEGATIVE (NEGATIVE); PROTEIN,URINE NEGATIVE (NEGATIVE); URINE SPECIFIC GRAVITY 1.012; UROBILINOGEN,URINE NEGATIVE mg/dL (<2.0)
--- NOTE | 2019-01-09 00:35 | RADIOLOGY REPORT (SQ) ---
CT HEAD WITHOUT IV CONTRAST EXAM DATE: 01/08/2019 9:23 PM CDT HISTORY: AMS. COMPARISON: None. TECHNIQUE: CT scan of the brain without IV contrast. This exam was performed according to our departmental dose-optimization program, which includes automated exposure control, adjustment of the mA and/or kV according to patient size and/or use of iterative reconstruction technique. FINDINGS: The ventricles, cisterns, and sulci are age-appropriate. No evidence of acute infarction, intracranial hemorrhage, extra-axial fluid collection, or midline shift. No air-fluid levels are seen in the paranasal sinuses to suggest acute sinusitis. No depressed skull fracture. IMPRESSION: No acute intracranial findings.
[2019-01-09 00:58] LABS: URINE AMPHETAMINES SCREEN NEGATIVE; URINE BARBITURATES SCREEN NEGATIVE; URINE BENZODIAZEPINES SCREEN UNCONFIRMED POSITIVE; URINE COCAINE SCREEN NEGATIVE; URINE MARIJUANA (THC) SCREEN UNCONFIRMED POSITIVE; URINE METHADONE SCREEN UNCONFIRMED POSITIVE; URINE PHENCYCLIDINE SCREEN NEGATIVE
[2019-01-09] MEDS ORDERED: DEXTROSE 40% GEL 15 GM TUBE PO PRN ×2 (01:21)
[2019-01-09] MEDS ORDERED: DEXTROSE 50%-WATER 25 GM/50 ML DISP.SYRIN IV PRN ×2 (01:21)
[2019-01-09] MEDS ORDERED: GLUCAGON,HUMAN RECOMB 1 MG INJ IM PRN (01:21)
--- NOTE | 2019-01-09 02:07 | RADIOLOGY REPORT (SQ) ---
Left shoulder three view on 01/09/2019 at 1:32 AM Clinical indications: Left shoulder pain after fall COMPARISON: PET/CT from 10/22/2018 FINDINGS: There is again noted injected methylmethacrylate in the left glenoid. This is likely for treatment of bony metastatic disease with a large lytic lesion noted at this location on the prior CT. The AC joint is well aligned. The glenohumeral joint is well located. There are no fractures. No other bony abnormality is noted. IMPRESSION: Methylmethacrylate within known large lytic lesion in the left glenoid with no acute abnormality.
[2019-01-09] MEDS ORDERED: HYDROMORPHONE HCL INJ/PF 2 MG/ML AMPULE IV ONE ×3 (02:26→05:30)
[2019-01-09] MEDS: ACETAMINOPHEN 325 MG TABLET PO PRN ×2 (06:57→16:07)
[2019-01-09] MEDS ORDERED: VANCOMYCIN HCL INJ 1000 MG VIAL IV ONE (07:57)
[2019-01-09] MEDS: HYDROMORPHONE HCL INJ/PF 2 MG/ML AMPULE IV PRN ×4 (08:46→22:15)
[2019-01-09] MEDS: NORMAL SALINE 1000 ML 1,000 ML IV PRN ×2 (08:49→18:52)
--- NOTE | 2019-01-09 08:53 | PDOC H&P ---
History of Present Illness Admission Date/PCP: 01/09/19 01:29 KENYON MITCHELL MD Patient complains of: Altered mental status History of Present Illness: USAMA CAMPOS is a 53 year old male This is a 53-year-old male diagnosis with the renal cell carcinoma with the widespread metastatic disease in the bone currently seen in [place] in November admitting in the hospital because of the confusions and right hip pain and multiple joint pain issues Patients diagnosed with a renal cell carcinoma in the back in June 2018 patient's was referred to the urology at [place] underwent for the left nephrectomy and subsequent PET scan suggest the metastatic disease Patient initially seen by Dr. Bolden locally here start on immunotherapy I believe referred to the [facility] receiving the immunotherapy and I believe chemotherapy and radiation's treatments According to the [facility] not patient's was confused he went to [facility] hospital was admitted last month and they believe the come from the oral immunotherapy Patient 2 days presents with the more confusions and the patient have recently had dental work done and patient was put on amoxicillin In the emergency department initial CT head all blood work was normal and ER physicians call for the admissions Patient have uncontrolled pain with the history of the chronic pain syndrome and chronic back pain and currently see the [facility] pain management for that Patient was recently admitted in the [facility] and the increase of Dilaudid 8 mg p.o. every 8 and also methadone 10 mg p.o. every 6 because of the uncontrolled pain When I saw the patient in the ER patient is confused compared to my assessment and the previously when in the office which he last seen in the September Patient also have a 101 fever and lactic acid was 2.7 Patient's otherwise denied any chest pain to than any shortness of the breath complaining of some lower abdominal discomfort According to the mother patient having a lot of pain and reviewed the [facility] record in November patient was confused and a lot of pain and they adjust the pain medication and the hold the chemotherapy Should have an appointment to see a new oncology today this afternoon Dr. Thakkar Very extensive discussions with the mother who taking care of the patient and the according to the mother patients wants to be a DNR As per discussed with the oncology we will start the patient on broad-spectrum IV antibiotic get the all cultures The CT of the chest abdomen pelvis and get the MRI of the head Patient had a MRI was done in the November was all okay and [facility] Since PET scan's on the [facility] suggest the worsening the malignancy Past Medical History Cardiac Medical History: Reports: Hyperlipidema, Hypertension Pulmonary Medical History: Denies: Tuberculosis Endocrine Medical History: Reports: Diabetes Mellitus Type 2 Malignancy Medical History: Reports: Bone Cancer, Renal (Kidney) Cancer GI Medical History: Reports: Gastroesophageal Reflux Disease Musculoskeltal Medical History: Reports: Arthritis Psychiatric Medical History: Reports: Bipolar Disorder, Depression Past Surgical History Past Surgical History: Reports: Cholecystectomy, Herniorrhaphy, Orthopedic Surgery - l shldr cement, Tonsillectomy Denies: Pacemaker Social History Information Source: Relative Smoking Status: Unknown if Ever Smoked Electronic Cigarette use?: No Frequency of Alcohol Use: None Hx Recreational Drug Use: No Hx Prescription Drug Abuse: No Family History Family History: Reviewed & Not Pertinent Parental Family History Reviewed: Yes Children Family History Reviewed: Yes Sibling(s) Family History Reviewed.: Yes Medication/Allergy Allergies/Adverse Reactions: No Known Allergies Allergy (Verified 08/06/18 15:43) Review of Systems ROS unobtainable: Due to mental status All systems: reviewed and no additional remarkable complaints except as stated Physical Exam Vital Signs: Temp Pulse Resp BP Pulse Ox 101.3 F H 96 14 122/85 92 01/09/19 06:47 01/08/19 20:30 01/09/19 06:47 01/09/19 06:47 01/09/19 06:47 Intake & Output 01/08/19 01/09/19 01/10/19 06:59 06:59 06:59 Intake Total 1000 Output Total 1400 Balance -400 Weight 116.9 kg Physical Exam: Patient is alert awake talking but confused General appearance: PRESENT: no acute distress, well-developed, well-nourished Head exam: PRESENT: atraumatic, normocephalic Eye exam: PRESENT: conjunctiva pink, EOMI, PERRLA. ABSENT: scleral icterus Ear exam: PRESENT: normal external ear exam Mouth exam: PRESENT: moist, tongue midline Neck exam: PRESENT: full ROM. ABSENT: carotid bruit, JVD, lymphadenopathy, thyromegaly Respiratory exam: PRESENT: clear to auscultation genna Cardiovascular exam: PRESENT: RRR. ABSENT: diastolic murmur, rubs, systolic murmur Pulses: PRESENT: normal dorsalis pedis pul, +2 pedal pulses bilateral Vascular exam: PRESENT: normal capillary refill GI/Abdominal exam: PRESENT: normal bowel sounds, soft. ABSENT: distended, guarding, mass, organolmegaly, rebound, tenderness Rectal exam: PRESENT: deferred Neurological exam: PRESENT: alert, altered, awake, oriented to person. ABSENT: motor sensory deficit Psychiatric exam: PRESENT: agitated, normal mood. ABSENT: homicidal ideation, suicidal ideation Skin exam: PRESENT: dry, intact, warm. ABSENT: cyanosis, rash Results Laboratory Results: 01/08/19 20:36 01/08/19 20:36 01/08/19 01/08/19 01/08/19 20:36 20:36 23:38 WBC 8.7 RBC 5.18 Hgb 16.0 Hct 47.1 MCV 91 MCH 30.9 MCHC 34.0 RDW 16.4 H Plt Count 267 Seg Neutrophils % 73.9 Sodium 138.2 Potassium 4.3 Chloride 99 Carbon Dioxide 26 Anion Gap 13 BUN 15 Creatinine 0.96 Est GFR ( Amer) > 60 Glucose 74 L Lactic Acid Calcium 9.4 Total Bilirubin 0.4 AST 78 H Alkaline Phosphatase 234 H Ammonia Total Protein 7.5 Albumin 4.0 Urine Color YELLOW Urine Appearance CLEAR Urine pH 6.0 Ur Specific [place]y 1.012 Urine Protein NEGATIVE Urine Glucose (UA) NEGATIVE Urine Ketones NEGATIVE Urine Blood NEGATIVE Urine Nitrite NEGATIVE Ur Leukocyte Esterase NEGATIVE Urine WBC (Auto) 0 Urine RBC (Auto) 1 01/09/19 01/09/19 01/09/19 03:18 03:18 07:35 WBC RBC Hgb Hct MCV MCH MCHC RDW Plt Count Seg Neutrophils % Sodium Potassium Chloride Carbon Dioxide Anion Gap BUN Creatinine Est GFR ( Amer) Glucose Lactic Acid 2.7 H 1.1 Calcium Total Bilirubin AST Alkaline Phosphatase Ammonia < 8.7 L Total Protein Albumin Urine Color Urine Appearance Urine pH Ur Specific R[place]y Urine Protein Urine Glucose (UA) Urine Ketones Urine Blood Urine Nitrite Ur Leukocyte Esterase Urine WBC (Auto) Urine RBC (Auto) Impressions: Chest X-Ray 01/08/19 21:23 IMPRESSION: No acute cardiopulmonary findings. Head CT 01/08/19 21:23 IMPRESSION: No acute intracranial findings. Shoulder X-Ray 01/09/19 01:01 IMPRESSION: Methylmethacrylate within known large lytic lesion in the left glenoid with no acute abnormality. Assessment & Plan - Diagnosis (1) Encephalopathy acute Is this a current diagnosis for this admission?: Yes Plan: Multiple etiology due to the underlying sepsis dehydration's or worsening the malignancy We will start the patient on a broad-spectrum IV antibiotics get the blood culture urine culture throat culture and if is not improved we will be consider lumbar puncture We will get the MRI of the brain Get the CT of the chest abdomen pelvis to rule out any underlying infectious process Start IV fluid (2) Renal cell carcinoma Qualifiers: Laterality: left Qualified Code(s): C64.2 - Malignant neoplasm of left kidney, except renal pelvis Is this a current diagnosis for this admission?: Yes Plan: Consult the local nephrology with the worsening the metastatic disease (3) Sepsis Qualifiers: Sepsis type: sepsis due to unspecified organism Severe sepsis shock status: without septic shock Is this a current diagnosis for this admission?: Yes Plan: Start the patient on a broad-spectrum IV antibiotic We will get the all cultures (4) Elevated lactic acid level Is this a current diagnosis for this admission?: Yes (5) Type 2 diabetes mellitus Qualifiers: Diabetes mellitus prison insulin use: without prison use Is this a current diagnosis for this admission?: Yes Plan: Continues to the sliding scale (6) Hypertension Qualifiers: Hypertension type: essential hypertension Qualified Code(s): I10 - Essential (primary) hypertension Is this a current diagnosis for this admission?: Yes Plan: Currently stable (7) Dehydration Is this a current diagnosis for this admission?: Yes Plan: Continues to IV fluid (8) Chronic pain syndrome Is this a current diagnosis for this admission?: Yes Plan: Patient with significant pain issues currently see the [facility] pain management even worsening the malignancy patient's pain is very uncontrolled we will consult the local pain management for further evaluations due to the significant pain issues (9) Bipolar disorder Qualifiers: Active/Remission status: currently active Is this a current diagnosis for this admission?: Yes - Time Time Spent: 50 to 70 Minutes Medications reviewed and adjusted accordingly: Yes Anticipated discharge: Home Within: Other - Inpatient Certification Based on my medical assessment, after consideration of the patient's comorbidities, presenting symptoms, or acuity I expect that the services needed warrant INPATIENT care.: Yes I certify that my determination is in accordance with my understanding of Medicare's requirements for reasonable and necessary INPATIENT services [42 CFR 412.3e].: Yes Medical Necessity: Significant Comorbidiites Make Outpatient Treatment Too Risky, Need For IV Fluids, Need for Pain Control, Need for IV Antibiotics 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
[2019-01-09] MEDS: INSULIN LISPRO 100 UNIT/ML 3 ML VIAL SUBCUT SCH ×4 (09:10→22:07)
[2019-01-09] MEDS: METHADONE HCL 10 MG TABLET PO SCH ×2 (09:57→17:25)
[2019-01-09] MEDS ORDERED: FAMOTIDINE INJ/PF 20 MG/2 ML SDV IV SCH (10:00)
[2019-01-09] MEDS ORDERED: LORAZEPAM INJ 2 MG/1 ML VIAL IV ONE (10:30)
[2019-01-09] MEDS ORDERED: VANCOMYCIN HCL 0 MG in DEXTROSE 5%-WATER 250 ML IV NR (11:00)
[2019-01-09] MEDS: CEFEPIME 2 GM/D5W RTU 2 GM/50 ML RTUPB IV SCH ×2 (12:05→22:15)
--- NOTE | 2019-01-09 12:26 | RADIOLOGY REPORT (SQ) ---
EXAM DESCRIPTION: CT CHEST WITH COMPLETED DATE/TIME: 01/09/2019 10:02 am REASON FOR STUDY: Abd pain COMPARISON: PET from 10/22/[address] of the chest with contrast from 04/18/2018 TECHNIQUE: CT scan of the chest performed using helical scanning technique with dynamic intravenous contrast injection. Images reviewed with lung, soft tissue and bone windows. Reconstructed coronal and sagittal MPR and MIP images reviewed. All images stored on PACS. All CT scanners at this facility use dose modulation, iterative reconstruction, and/or weight based d osing when appropriate to reduce radiation dose to as low as reasonably achievable (ALARA). [facility]: Dose Right [facility]: CareDose [facility]: Dose Right [facility]: Teradose 4D [facility]: [employer]ics CONTRAST TYPE AND DOSE: Contrast/concentration: Isovue 350.00 mg/ml; Total Contrast Delivered: 99.0 ml; Total Saline Delivered: 44.5 ml RENAL FUNCTION: Creatinine 0.96 mg/dl. RADIATION DOSE: CT Rad equipment meets quality standard of care and radiation dose reduction techniq ues were employed. CTDIvol: 21.1 - 21.1 mGy. DLP: 2787 mGy-cm. . LIMITATIONS: None. FINDINGS: LUNGS AND PLEURA: The trachea and main bronchi are patent. There is no bronchiectasis. T he pleural-based opacities in the right lower lobe are nonspecific and could represent atelectasis. There is no sizable pleural effusion, pneumothorax or pulmonary nodule or mass. HILAR AND MEDIASTINAL STRUCTURES: There is no enlarged mediastinal or hilar adenopathy. HEART AND VASCULAR STRUCTURES: There is no thoracic aortic aneurysm or dissection. There is no cardi omegaly or pericardial effusion. HARDWARE: None. UPPER ABDOMEN: See separate report of the CT of the abdomen. THYROID AND OTHER SOFT TISSUES: No masses or adenopathy. BONES: There are lytic lesions that involve the manubrium, left clavicle and the C7, T1, T6, and T12 vertebral bodies. The T6 lesion has increased in size from the prior PET and it measures approximate ly 2.1 cm in diameter compared to 1.3 cm on the prior PET. In contradistinction, the soft tissue com ponents of the T1 and T12 lesions appear to have decreased in size from the prior PET. The manubrial and left scapular lesions are unchanged ; as on the prior PET there cement within the left scapular l esion. There is no new lesion or associated fracture. OTHER: No other finding. IMPRESSION: 1. Pleural-based opacities in the right lower lobe that could represent atelectasis. 2. Lytic lesions that involve the manubrium, left clavicle and the C7, T1, T6 and T12 vertebral philip s. As detailed above, the T6 lesion has increased in size from the prior PET and it measures approxi mately 2.1 cm compared to 1.3 cm. In contradistinction, the T1 and T12 lesions appear to have decrea sed in size and there is increased sclerosis at the margins of the lesions ; these findings could rep resent response to treatment. TECHNICAL DOCUMENTATION: JOB ID: [id number] Quality ID # [id number]: Final reports with documentation of one or more dose reduction techniques (e.g., Au tomated exposure control, adjustment of the mA and/or kV according to patient size, use of iterative reconstruction technique) 2010 [employer]- All Rights Reserved Reading location - IP/workstation name: [email or web address]
--- NOTE | 2019-01-09 13:06 | RADIOLOGY REPORT (SQ) ---
EXAM DESCRIPTION: CT ABD/PELVIS WITH IV ONLY COMPLETED DATE/TIME: 01/09/2019 10:02 am REASON FOR STUDY: Abd pain COMPARISON: PET from 10/22/[address] of the pelvis from 11/20/2018. TECHNIQUE: CT scan of the abdomen and pelvis performed using helical scanning technique with dynamic intravenous contrast injection. No oral contrast. Images reviewed with lung, soft tissue, and bone windows. Reconstructed coronal and sagittal MPR images reviewed. Delayed images for evaluation of the urinary system also acquired. All images stored on PACS. All CT scanners at this facility use dose modulation, iterative reconstruction, and/or weight based d osing when appropriate to reduce radiation dose to as low as reasonably achievable (ALARA). [facility]: Dose Right [facility]: CareDose [facility]: Dose Right [facility]: Teradose 4D [facility]: [employer] CONTRAST TYPE AND DOSE: Refer to the CT Chest report. RENAL FUNCTION: Creatinine 0.96 milligrams/deciliter. LIMITATIONS: Evaluation is limited due to beam hardening artifact related to the position of the arm s at the side of the patient. FINDINGS: LOWER CHEST: See separate report of the CT of the chest. LIVER: The liver morphology is non cirrhotic. There is no discrete hepatic mass. SPLEEN: There is no splenomegaly. There is an accessory splenule in the left upper quadrant anterior to the spleen. PANCREAS: There is no acute gross abnormality of the pancreas. GALLBLADDER: The gallbladder surgically absent. There is no biliary ductal dilatation. ADRENAL GLANDS: No adrenal masses or focal asymmetry. RIGHT KIDNEY AND URETER: No solid masses, calcifications, hydronephrosis or hydroureter. LEFT KIDNEY AND URETER: Status post left nephrectomy. The stranding in the left renal fossa is uncha nged from 10/22/2018. AORTA AND VESSELS: No aneurysmal dilatation or dissection of the abdominal aorta RETROPERITONEUM: No retroperitoneal adenopathy, hemorrhage or mass. BOWEL AND PERITONEAL CAVITY: No acute findings. APPENDIX: Normal. PELVIS: There is a Reed catheter within the decompressed urinary bladder. The gas within the urinar y bladder lumen is nonspecific and could be related to the Reed catheter ; if there is concern for i nfection correlation with urinalysis is recommended. There is no pelvic adenopathy, free fluid or ma ss. ABDOMINAL WALL: No masses or sizable hernias. BONES: Stable bilateral iliac and right acetabular lytic lesions ; the right acetabular lesion is ass ociated with a fracture and there is cement within the lesion. There is no new lesion. OTHER: No other finding. IMPRESSION: 1. No acute intra-abdominal abnormality. 2. Stable appearance of the lytic lesions that involve the bilateral iliac bones and right acetabulu m ; the right acetabular lesion is associated with a pathologic fracture. TECHNICAL DOCUMENTATION: JOB ID: [id number] Quality ID # [id number]: Final reports with documentation of one or more dose reduction techniques (e.g., Au tomated exposure control, adjustment of the mA and/or kV according to patient size, use of iterative reconstruction technique) 2010 [employer]- All Rights Reserved Reading location - IP/workstation name: [email or web address]
[2019-01-09] MEDS ORDERED: METHADONE HCL 10 MG TABLET PO SCH (14:00)
[2019-01-09] MEDS ORDERED: LORAZEPAM 1 MG TABLET PO PRN (14:42)
[2019-01-09] MEDS: ENOXAPARIN SODIUM INJ 40 MG/0.4 ML DISP.SYRIN SUBCUT SCH (16:54)
[2019-01-09] MEDS: POLYETHYLENE GLYCOL 3350 POWDER 17 GM/1 PACKET PO SCH ×2 (16:55→17:22)
[2019-01-09] MEDS: DOCUSATE SODIUM 100 MG CAPSULE PO SCH (17:22)
[2019-01-09] MEDS: PROPRANOLOL HCL 20 MG TABLET PO SCH (17:22)
[2019-01-09] MEDS: VANCOMYCIN HCL 1,500 MG in DEXTROSE 5%-WATER 250 ML IV SCH ×2 (17:26→21:27)
[2019-01-09] MEDS: NYSTATIN CREAM 15 GM TP SCH (20:22)
[2019-01-09] MEDS: FAMOTIDINE 20 MG TABLET PO SCH (21:26)
[2019-01-09] MEDS ORDERED: BENZTROPINE MESYLATE 1 MG TABLET PO SCH (22:00)
[2019-01-09] MEDS ORDERED: DOXEPIN HCL 25 MG CAPSULE PO SCH (22:00)
[2019-01-09] MEDS ORDERED: (PENDING PHARMACY ID) (Cariprazine Hcl [Vraylar] 3 MG) PO SCH (22:00)
[2019-01-09] MEDS ORDERED: (PENDING PHARMACY ID) (Benztropine Mesylate [Benztropine Mesylate 2 Mg Tablet] 2 MG) PO SCH (22:00)
[2019-01-09] MEDS ORDERED: GABAPENTIN 300 MG CAPSULE PO SCH (22:00)
[2019-01-10] MEDS: NORMAL SALINE 1000 ML 1,000 ML IV PRN ×2 (01:23→21:50)
[2019-01-10] MEDS: METHADONE HCL 10 MG TABLET PO SCH ×5 (02:32→18:21)
[2019-01-10] MEDS: HYDROMORPHONE HCL INJ/PF 2 MG/ML AMPULE IV PRN ×2 (02:34→22:48)
[2019-01-10] MEDS: VANCOMYCIN HCL 1,500 MG in DEXTROSE 5%-WATER 250 ML IV SCH ×2 (05:30→15:40)
[2019-01-10 07:10] LABS: ABSOLUTE EOSINOPHILS # (AUTO) 0.1 10^3/uL (0.0-0.6); ABSOLUTE LYMPHOCYTES (AUTO) 0.9 10^3/uL (0.5-4.7); ABSOLUTE MONOCYTES (AUTO) 0.5 10^3/uL (0.1-1.4); BASOPHILS % (AUTO) 0.7 % (0-2); EOSINOPHILS % (AUTO) 1.7 % (0-6); HEMATOCRIT 40.3 % (37.9-51.0); LYMPHOCYTES % (AUTO) 19.3 % (13-45); MEAN CORPUSCULAR HEMOGLOBIN 31.1 pg (27.0-33.4); MEAN CORPUSCULAR HGB CONC 34.5 g/dL (32.0-36.0); MEAN CORPUSCULAR VOLUME 90 fl (80-97); MONOCYTES % (AUTO) 11.5 % (3-13); PLATELET COUNT 179 10^3/uL (150-450); RED BLOOD COUNT 4.46 10^6/uL (4.35-5.55); RED CELL DISTRIBUTION WIDTH 16.1 % (11.5-14.0); SEGMENTED NEUTROPHILS % (AUTO) 66.8 % (42-78); TOTAL CELLS COUNTED % (AUTO) 100 %; WHITE BLOOD COUNT 4.5 10^3/uL (4.0-10.5)
[2019-01-10 07:15] LABS: HEMOGLOBIN 13.9 g/dL (13.5-17.0)
[2019-01-10 07:25] LABS: ALBUMIN 3.5 g/dL (3.5-5.0); ALKALINE PHOSPHATASE 201 U/L (38-126); ANION GAP 10 (5-19); ASPARTATE AMINO TRANSFERASE 55 U/L (17-59); BILIRUBIN,DIRECT 0.2 mg/dL (0.0-0.4); BILIRUBIN,TOTAL 0.5 mg/dL (0.2-1.3); BLOOD UREA NITROGEN 14 mg/dL (7-20); CALCIUM 8.4 mg/dL (8.4-10.2); CARBON DIOXIDE 21 mmol/L (22-30); CHLORIDE 103 mmol/L (98-107); GLUCOSE 114 mg/dL (75-110); POTASSIUM 3.9 mmol/L (3.6-5.0); TOTAL PROTEIN 6.7 g/dL (6.3-8.2)
--- NOTE | 2019-01-10 08:18 | PDOC PROGRESS REPORT ---
Subjective Progress Note for:: 01/10/19 Subjective:: Patient is currently doing better Slept last night but I think patients needs to reduce the medications dose Is taking the multiple drugs which interfered the patient's brain functions including the multiple psych medications and also pain medications I think discussed with the mother about to cut down the certain medications which get a clear picture about this confusions related to the medications versus the other etiology d/w to the mother patient slept pretty good patient alert awake this morning but nursing staff concerns too much drowsy last night Reviewed the [facility] record patient was confused over the 2 and the patient was in a lot of pain readjust the medication in the [facility] Patient supposed to use a CPAP machines but not using according to the mother at home also Patient's denied any chest pain no short of breath No fever Patient is currently covered with the IV vancomycin and cefepime culture is still pending Reason For Visit: ENCEPHALOPATHY Physical Exam Vital Signs: Temp Pulse Resp BP Pulse Ox 97.5 F 93 20 126/82 H 95 01/10/19 03:00 01/10/19 03:00 01/10/19 03:00 01/10/19 03:00 01/10/19 03:00 Intake & Output 01/09/19 01/10/19 01/11/19 06:59 06:59 06:59 Intake Total 1000 2315 Output Total 1400 1850 Balance -400 465 Weight 116.9 kg 120.4 kg General appearance: PRESENT: no acute distress, well-developed, well-nourished Head exam: PRESENT: atraumatic, normocephalic Eye exam: PRESENT: conjunctiva pink, EOMI, PERRLA. ABSENT: scleral icterus Ear exam: PRESENT: normal external ear exam Mouth exam: PRESENT: moist, tongue midline Neck exam: PRESENT: full ROM. ABSENT: carotid bruit, JVD, lymphadenopathy, thyromegaly Respiratory exam: PRESENT: clear to auscultation genna Cardiovascular exam: PRESENT: RRR. ABSENT: diastolic murmur, rubs, systolic murmur Pulses: PRESENT: normal dorsalis pedis pul, +2 pedal pulses bilateral Vascular exam: PRESENT: normal capillary refill GI/Abdominal exam: PRESENT: normal bowel sounds, soft. ABSENT: distended, guarding, mass, organolmegaly, rebound, tenderness Rectal exam: PRESENT: deferred Neurological exam: PRESENT: alert, awake, oriented to person. ABSENT: motor sensory deficit Psychiatric exam: PRESENT: appropriate affect, normal mood. ABSENT: homicidal ideation, suicidal ideation Skin exam: PRESENT: dry, intact, warm. ABSENT: cyanosis, rash Results Laboratory Results: 01/10/19 06:13 01/10/19 06:13 01/10/19 01/10/19 06:13 06:13 WBC 4.5 RBC 4.46 Hgb 13.9 D Hct 40.3 MCV 90 MCH 31.1 MCHC 34.5 RDW 16.1 H Plt Count 179 Seg Neutrophils % 66.8 Sodium 134.3 L Potassium 3.9 Chloride 103 Carbon Dioxide 21 L Anion Gap 10 BUN 14 Creatinine 1.20 Est GFR ( Amer) > 60 Glucose 114 H Calcium 8.4 Magnesium 1.8 Total Bilirubin 0.5 AST 55 Alkaline Phosphatase 201 H Total Protein 6.7 Albumin 3.5 Impressions: Chest X-Ray 01/08/19:23 IMPRESSION: No acute cardiopulmonary findings. Head CT 01/08/19 21:23 IMPRESSION: No acute intracranial findings. Abdomen/Pelvis CT 01/09/19 00:00 IMPRESSION: 1. No acute intra-abdominal abnormality. 2. Stable appearance of the lytic lesions that involve the bilateral iliac bones and right acetabulum ; the right acetabular lesion is associated with a pathologic fracture. Chest CT 01/09/19 00:00 IMPRESSION: 1. Pleural-based opacities in the right lower lobe that could represent atelectasis. 2. Lytic lesions that involve the manubrium, left clavicle and the C7, T1, T6 and T12 vertebral bodies. As detailed above, the T6 lesion has increased in size from the prior PET and it measures approximately 2.1 cm compared to 1.3 cm. In contradistinction, the T1 and T12 lesions appear to have decreased in size and there is increased sclerosis at the margins of the lesions ; these findings could represent response to treatment. Shoulder X-Ray 01/09/19 01:01 IMPRESSION: Methylmethacrylate within known large lytic lesion in the left glenoid with no acute abnormality. Assessment & Plan - Diagnosis (1) Encephalopathy acute Is this a current diagnosis for this admission?: Yes Plan: I think with the multiple etiology including the multiple pharmaceutical and also metabolic Patient's currently cover with IV antibiotics for the sepsis the pending culture Patient's neuro exam otherwise all stable except patient having some confusions We will get the ABG and encourage the patient's in the discussed with the mother to use a CPAP We already put a consult for the psych and the pain management to further evaluate with this multiple medications (2) Renal cell carcinoma Qualifiers: Laterality: left Qualified Code(s): C64.2 - Malignant neoplasm of left kidney, except renal pelvis Is this a current diagnosis for this admission?: Yes Plan: Consult the local nephrology with the worsening the metastatic disease (3) Sepsis Qualifiers: Sepsis type: sepsis due to unspecified organism Severe sepsis shock status: without septic shock Is this a current diagnosis for this admission?: Yes Plan: Cover with IV antibiotic (4) Elevated lactic acid level Is this a current diagnosis for this admission?: Yes Plan: The repeat the lactic acids (5) Type 2 diabetes mellitus Qualifiers: Diabetes mellitus intermediate insulin use: without intermediate use Is this a current diagnosis for this admission?: Yes Plan: Continues to the sliding scale (6) Hypertension Qualifiers: Hypertension type: essential hypertension Qualified Code(s): I10 - Essential (primary) hypertension Is this a current diagnosis for this admission?: Yes Plan: Currently stable (7) Dehydration Is this a current diagnosis for this admission?: Yes Plan: Continues to IV fluid (8) Chronic pain syndrome Is this a current diagnosis for this admission?: Yes Plan: Patient with significant pain issues currently see the [facility] pain management even worsening the malignancy patient's pain is very uncontrolled we will consult the local pain management for further evaluations due to the significant pain issues (9) Bipolar disorder Qualifiers: Active/Remission status: currently active Is this a current diagnosis for this admission?: Yes Plan: We currently continues to Celexa only we hold the lorazepam and also also doxepin and also hold the Cogentin will wait for the psych for further recommendations - Time Time Spent with patient: 15-24 minutes Medications reviewed and adjusted accordingly: Yes Anticipated discharge: Home, Other Within: Other - Plan Summary Plan Summary: Very extensive discussions with the mother and the bedside regarding the patient's current conditions with overall poor prognosis with the worsening the renal cell carcinoma with the bone metastatic disease Patient always have a pain issue but I think emesis versus worsening the pain We will continue to monitor the patient's I do not think so at this point patient is warranted for the lumbar puncture if the patient's continues to deteriorating or not getting better than may be consider for the lumbar puncture Encourage the patient's and the mother to use his CPAP machines
--- NOTE | 2019-01-10 09:27 | PDOC CONSULTATION ---
Consultation Consult Date: 01/10/19 Provider Consulted: SOY REGAN Consult reason:: Hematology/Oncology consultation was requested for patient with metastatic renal cell carcinoma. History of Present Illness Admission Date/PCP: 01/09/19 01:29 KENYON ORTEGA MD History of Present Illness: USAMA CAMPOS is a 53 year old male who was diagnosed with renal cell carcinoma in June 2018. He has had bone mets and has had chronic pain due to this. He is followed by [facility], Dr. Erna Mcnally as well as [facility] management. He was on an immunotherapy initially which causes a rash and had to be stopped. Then, he was on Inlyta, but this was only continued for about 2 weeks. Most recently, he was changed to cabometyx but has been on this only about 2 weeks as well. MRI scan last month due to confusion was negative, per patient's mother. She states that a few days ago, patient became more somnolent and confused. She called 911 and was told to give him a full dose of Narcan (patient had been maintained on methadone and dilaudid). This caused acute pain, agitation, and combative behavior. He was admitted for further treatment. Today, patient is still complaining of pain in his left shoulder with any movement. Also back and hip pain which are chronic. Past Medical History Cardiac Medical History: Reports: Hyperlipidema, Hypertension Pulmonary Medical History: Denies: Tuberculosis Endocrine Medical History: Reports: Diabetes Mellitus Type 2 Malignancy Medical History: Reports: Bone Cancer, Renal (Kidney) Cancer GI Medical History: Reports: Gastroesophageal Reflux Disease Musculoskeltal Medical History: Reports: Arthritis Psychiatric Medical History: Reports: Bipolar Disorder, Depression Past Surgical History Past Surgical History: Reports: Cholecystectomy, Herniorrhaphy, Orthopedic Surgery - l shldr cement, Tonsillectomy Denies: Pacemaker Social History Smoking Status: Former Smoker Electronic Cigarette use?: No Frequency of Alcohol Use: None Hx Recreational Drug Use: No Hx Prescription Drug Abuse: No Past Social History Note: . 1 Son. 1 Grandchild. Mother is at bedside today and is primary caregiver. - Advance Directive Resuscitation Status: Do Not Resuscitate Family History Parental Family History Reviewed: Yes - MGM with breast cancer. Maternal aunt with breast cancer. Children Family History Reviewed: Yes Sibling(s) Family History Reviewed.: No Medication/Allergy Home Medications: Ascorbic Acid [Vitamin C] 1,000 mg PO DAILY 01/09/19 Atorvastatin Calcium [Lipitor 10 mg Tablet] 10 mg PO DAILY 01/09/19 Benztropine Mesylate [Benztropine Mesylate 2 mg Tablet] 2 mg PO Q12 01/09/19 Cabozantinib S-Malate [Cabometyx] 60 mg PO DAILY 01/09/19 Cariprazine HCl [Vraylar] 3 mg PO QHS 01/09/19 Cetirizine HCl [Zyrtec 10 mg Tablet] 10 mg PO DAILY 01/09/19 Cholecalciferol (Vitamin D3) [Vitamin D3 400 Unit Tablet] 400 unit PO DAILY 01/09/19 Citalopram Hydrobromide [Celexa 40 mg Tablet] 40 mg PO DAILY 01/09/19 Clobetasol Propionate [Temovate 0.05% Topical Soln 25 Ml Bottle] 1 applic TOP DAILY 01/09/19 Cyanocobalamin (Vitamin B-12) [B-12] 500 mcg PO DAILY 01/09/19 Diclofenac Sodium [Voltaren] 2 gm TP QID 01/09/19 Docusate Sodium [Colace 100 mg Capsule] 100 mg PO BID 01/09/19 Doxepin HCl [Sinequan 25 Mg Capsule] 25 mg PO QHS 01/09/19 Fluticasone Propionate [Flonase Nasal [place] 50 Mcg/[place] 16 gm] 1 spray NASL DAILY 01/09/19 Gabapentin [Neurontin 300 mg Capsule] 300 mg PO QHS 01/09/19 Hydromorphone HCl [Dilaudid] 8 mg PO Q4HP PRN 01/09/19 Ibuprofen [Advil] 200 mg PO BID 01/09/19 Lidocaine HCl [Xylocaine 5% Ointment 35.44 gm] 1 applic TP ASDIR PRN 01/09/19 Lorazepam [Ativan 1 mg Tablet] 1 mg PO ASDIR PRN 01/09/19 Metformin HCl [Glucophage] 1,000 mg PO DAILY 01/09/19 Methadone HCl [Dolophine 10 Mg Tablet] 10 mg PO Q6 01/09/19 Naloxone HCl [Narcan] 4 mg NS ASDIR PRN 01/09/19 Nystatin [Mycostatin Cream] 1 applic TP BID 01/09/19 Ondansetron HCl [Zofran] 8 mg PO Q8HP PRN 01/09/19 Prazosin HCl [Minipress] 1 mg PO QHS 01/09/19 Propranolol HCl [Inderal 20 mg Tablet] 20 mg PO BID 01/09/19 Urea [Carmol 20% Cream 85 Gm] 1 applic TP BID 01/09/19 Allergies/Adverse Reactions: No Known Allergies Allergy (Verified 08/06/18 15:43) Review of Systems Constitutional: PRESENT: fever(s) Eyes: ABSENT: visual disturbances Ears: ABSENT: hearing changes Nose, Mouth, and Throat: PRESENT: mouth pain - after dental procedure Cardiovascular: ABSENT: chest pain Respiratory: ABSENT: dyspnea Gastrointestinal: PRESENT: abdominal pain Genitourinary: ABSENT: dysuria Musculoskeletal: PRESENT: back pain, muscle weakness Integumentary: PRESENT: rash Neurological: PRESENT: confusion, weakness Hematologic/Lymphatic: ABSENT: easy bleeding Physical Exam Vital Signs: Temp Pulse Resp BP Pulse Ox 98.6 F 86 16 120/88 H 91 L 01/10/19 08:26 01/10/19 08:26 01/10/19 08:26 01/10/19 08:26 01/10/19 08:26 Intake & Output 01/09/19 01/10/19 01/11/19 06:59 06:59 06:59 Intake Total 1000 2315 Output Total 1400 1850 Balance -400 465 Weight 116.9 kg 120.4 kg General appearance: PRESENT: no acute distress, obese Head exam: PRESENT: normocephalic Eye exam: PRESENT: EOMI Mouth exam: PRESENT: tongue midline Neck exam: ABSENT: lymphadenopathy, tenderness Respiratory exam: PRESENT: clear to auscultation genna, unlabored Cardiovascular exam: PRESENT: RRR GI/Abdominal exam: PRESENT: soft. ABSENT: tenderness Musculoskeletal exam: PRESENT: other - myoclonal jerks. Unable to move left shoulder due to pain. Neurological exam: PRESENT: awake, other - Not fully oriented. Answers only a few word questions. Psychiatric exam: PRESENT: flat affect Skin exam: PRESENT: pallor Results Laboratory Results: 01/10/19 06:13 01/10/19 06:13 01/10/19 01/10/19 06:13 06:13 WBC 4.5 RBC 4.46 Hgb 13.9 D Hct 40.3 MCV 90 MCH 31.1 MCHC 34.5 RDW 16.1 H Plt Count 179 Seg Neutrophils % 66.8 Sodium 134.3 L Potassium 3.9 Chloride 103 Carbon Dioxide 21 L Anion Gap 10 BUN 14 Creatinine 1.20 Est GFR ( Amer) > 60 Glucose 114 H Calcium 8.4 Magnesium 1.8 Total Bilirubin 0.5 AST 55 Alkaline Phosphatase 201 H Total Protein 6.7 Albumin 3.5 Impressions: Chest X-Ray 01/08/19 21:23 IMPRESSION: No acute cardiopulmonary findings. Head CT 01/08/19 21:23 IMPRESSION: No acute intracranial findings. Abdomen/Pelvis CT 01/09/19 00:00 IMPRESSION: 1. No acute intra-abdominal abnormality. 2. Stable appearance of the lytic lesions that involve the bilateral iliac bones and right acetabulum ; the right acetabular lesion is associated with a pathologic fracture. Chest CT 01/09/19 00:00 IMPRESSION: 1. Pleural-based opacities in the right lower lobe that could represent atelectasis. 2. Lytic lesions that involve the manubrium, left clavicle and the C7, T1, T6 and T12 vertebral bodies. As detailed above, the T6 lesion has increased in size from the prior PET and it measures approximately 2.1 cm compared to 1.3 cm. In contradistinction, the T1 and T12 lesions appear to have decreased in size and there is increased sclerosis at the margins of the lesions ; these findings could represent response to treatment. Shoulder X-Ray 01/09/19 01:01 IMPRESSION: Methylmethacrylate within known large lytic lesion in the left glenoid with no acute abnormality. Status: Image reviewed by me Assessment & Plan - Diagnosis (1) Chronic pain syndrome Is this a current diagnosis for this admission?: Yes Plan: Patient has been followed by [facility] management. I agree that thye should continue to follow for the cancer pain. I agree with Methadone, which is a very good long-acting pain medication. However, due to confusion, dose may need to be adjusted a bit. I discussed with patient's mother that we NEVER like to give narcan to cancer patients. This should not be done again in the future. Instead, all pain medications should be held for 12-24 hours if oversedation or increased confusion. (2) Encephalopathy acute Is this a current diagnosis for this admission?: Yes Plan: Agree with Dr. Ortega that etiology is quite difficult to pinpoint. Await MRI brain to search for cancer. If negative, Agree with medication adjustments. Ammonia normal. (3) Renal cell carcinoma Qualifiers: Laterality: left Qualified Code(s): C64.2 - Malignant neoplasm of left kidney, except renal pelvis Is this a current diagnosis for this admission?: Yes Plan: All active treatment is currently on hold until cause of the confusion has been better established. I will discuss with [facility] and make further recommendations in the near future. - Plan Summary Plan Summary: Dr. Thakkar and Dr. Ortega did discuss this patient in detail yesterday. I will be happy to continue to follow with you. Please call with any concerns.
[2019-01-10] MEDS ORDERED: CABOZANTINIB S MALATE 60 MG PO SCH (10:00)
[2019-01-10] MEDS ORDERED: (PENDING PHARMACY ID) (Cyanocobalamin (Vitamin B-12) [B-12] 500 MCG) PO SCH (10:00)
[2019-01-10] MEDS ORDERED: (PENDING PHARMACY ID) (Citalopram Hydrobromide [Celexa 40 Mg Tablet] 40 MG) PO SCH (10:00)
[2019-01-10] MEDS: INSULIN LISPRO 100 UNIT/ML 3 ML VIAL SUBCUT SCH ×4 (10:58→22:25)
--- NOTE | 2019-01-10 11:15 | RADIOLOGY REPORT (SQ) ---
EXAM DESCRIPTION: MRI HEAD COMBO COMPLETED DATE/TIME: 01/10/2019 10:26 am REASON FOR STUDY: er 3 pain/ COMPARISON: None. TECHNIQUE: Multiplanar imaging includes noncontrasted T1, T2, FLAIR, diffusion with ADC map and post gadolinium contrast T1 sequences. Images stored on PACS. CONTRAST TYPE AND DOSE: 20 mL Dotarem. RENAL FUNCTION: Not indicated. ACR Type II contrast agent associated with few, if any, unconfounded cases of NSF LIMITATIONS: None. FINDINGS: ANATOMY: No anomalies. Normal vascular flow voids. Pituitary fossa normal. CSF SPACES: Normal in size and contour. No hemorrhage. CEREBRUM: Sulci and gyri normal in size and contour. A single focus of increased signal is noted on FLAIR images in the left centrum semiovale. . No evidence of hemorrhage, mass, or extraaxial fluid c ollection. No abnormal enhancement post contrast. POSTERIOR FOSSA: No signal alteration. No hemorrhage. No edema, masses, or mass effect. Internal kam tory canals, cerebellopontine angles, mastoids normal. No enhancing lesions. No abnormal enhancement post contrast. DIFFUSION IMAGING: Negative for acute or subacute infarction. ORBITS: No masses. Globes normal. PARANASAL SINUSES: No fluid levels. Mucosa normal. OTHER: No other significant finding. IMPRESSION: NORMAL MRI OF THE BRAIN WITHOUT AND WITH INTRAVENOUS GADOLINIUM CONTRAST. EVIDENCE OF ACUTE STROKE: NO. TECHNICAL DOCUMENTATION: JOB ID: [id number] [employer]- All Rights Reserved Reading location - IP/workstation name: [email or web address]
[2019-01-10] MEDS: PROPRANOLOL HCL 20 MG TABLET PO SCH ×2 (11:26→18:19)
[2019-01-10] MEDS: ATORVASTATIN CALCIUM 10 MG TABLET PO SCH (11:27)
[2019-01-10] MEDS: DOCUSATE SODIUM 100 MG CAPSULE PO SCH ×2 (11:27→18:19)
[2019-01-10] MEDS: CYANOCOBALAMIN (VITAMIN B-12) 1,000 MCG TABLET PO SCH (11:27)
[2019-01-10] MEDS: FAMOTIDINE 20 MG TABLET PO SCH ×2 (11:30→21:49)
[2019-01-10] MEDS: NYSTATIN CREAM 15 GM TP SCH ×2 (11:30→18:17)
[2019-01-10] MEDS: CITALOPRAM HYDROBROMIDE 20 MG TABLET PO SCH (11:31)
[2019-01-10] MEDS: POLYETHYLENE GLYCOL 3350 POWDER 17 GM/1 PACKET PO SCH ×2 (11:31→18:16)
[2019-01-10] MEDS: FLUTICASONE NASAL SPRAY 50 MCG/SPRY 120 SPRAY/16 GM NASL SCH (11:32)
[2019-01-10] MEDS: ENOXAPARIN SODIUM INJ 40 MG/0.4 ML DISP.SYRIN SUBCUT SCH (11:33)
[2019-01-10] MEDS: CETIRIZINE 10 MG TABLET PO SCH (11:33)
[2019-01-10] MEDS: CEFEPIME 2 GM/D5W RTU 2 GM/50 ML RTUPB IV SCH ×2 (11:35→21:49)
[2019-01-10] MEDS ORDERED: INFLUENZA QUAD (6MOS+) 2019-20 VAC 0.5 ML SYR IM ONE (12:51)
[2019-01-10 14:22] LABS: VANCOMYCIN,TROUGH 22.2 ug/mL (5.0-20.0)
[2019-01-10 17:34] LABS: ARTERIAL BLOOD BASE EXCESS -4.1 mmol/L; ARTERIAL BLOOD H2CO3 1.12 mmol/L (1.05-1.35); ARTERIAL BLOOD HCO3 20.7 mmol/L (20-24); ARTERIAL BLOOD O2 SATURATION 90.8 % (94-98); ARTERIAL BLOOD PCO2 37.3 mmHg (35-45); ARTERIAL BLOOD PH 7.36 (7.35-7.45); ARTERIAL BLOOD PO2 61.1 mmHg (80-100); ARTERIAL BLOOD TOTAL CO2 21.8 mmol/L (23-27)
[2019-01-10 17:37] LABS: ARTERIAL BLOOD FIO2 ROOM AIR
[2019-01-11] MEDS: METHADONE HCL 10 MG TABLET PO SCH ×3 (02:30→17:47)
[2019-01-11] MEDS: NORMAL SALINE 1000 ML 1,000 ML IV PRN (05:16)
[2019-01-11 06:31] LABS: ABSOLUTE EOSINOPHILS # (AUTO) 0.2 10^3/uL (0.0-0.6); ABSOLUTE LYMPHOCYTES (AUTO) 0.7 10^3/uL (0.5-4.7); ABSOLUTE MONOCYTES (AUTO) 0.4 10^3/uL (0.1-1.4); ABSOLUTE NEUT (AUTO) 2.3 10^3/uL (1.7-8.2); BASOPHILS % (AUTO) 0.6 % (0-2); EOSINOPHILS % (AUTO) 5.5 % (0-6); HEMATOCRIT 37.5 % (37.9-51.0); HEMOGLOBIN 12.8 g/dL (13.5-17.0); LYMPHOCYTES % (AUTO) 19.5 % (13-45); MEAN CORPUSCULAR HEMOGLOBIN 30.9 pg (27.0-33.4); MEAN CORPUSCULAR HGB CONC 34.1 g/dL (32.0-36.0); MEAN CORPUSCULAR VOLUME 91 fl (80-97); MONOCYTES % (AUTO) 9.8 % (3-13); PLATELET COUNT 150 10^3/uL (150-450); RED BLOOD COUNT 4.15 10^6/uL (4.35-5.55); RED CELL DISTRIBUTION WIDTH 16.4 % (11.5-14.0); SEGMENTED NEUTROPHILS % (AUTO) 64.6 % (42-78); TOTAL CELLS COUNTED % (AUTO) 100 %; WHITE BLOOD COUNT 3.6 10^3/uL (4.0-10.5)
--- NOTE | 2019-01-11 07:50 | PDOC PROGRESS REPORT ---
Subjective Progress Note for:: 01/11/19 Subjective:: Patient is much more alert and talkative today. He states that pain is well controlled. He is still not eating much but is hungry. No BMs recently. Mother is asleep at bedside. Reason For Visit: ENCEPHALOPATHY Physical Exam Vital Signs: Temp Pulse Resp BP Pulse Ox 98.6 F 69 16 120/88 H 91 L 01/10/19 08:26 01/11/19 07:00 01/10/19 08:26 01/10/19 08:26 01/10/19 08:26 Intake & Output 01/10/19 01/11/19 01/12/19 06:59 06:59 06:59 Intake Total 2365 1523 Output Total 1850 500 Balance 515 1023 Weight 120.4 kg 120.2 kg General appearance: PRESENT: no acute distress, obese Head exam: PRESENT: normocephalic Eye exam: PRESENT: EOMI Neck exam: ABSENT: lymphadenopathy, tenderness Respiratory exam: PRESENT: clear to auscultation genna, unlabored Cardiovascular exam: PRESENT: RRR GI/Abdominal exam: PRESENT: normal bowel sounds, soft. ABSENT: tenderness Extremities exam: PRESENT: +1 edema, other - TEDs in place. Neurological exam: PRESENT: alert, awake, other - Some expressive aphasia. Difficulty asking a question. Skin exam: PRESENT: normal color Results Laboratory Results: 01/11/19 05:43 01/10/19 06:13 01/10/19 01/10/19 01/11/19 10:45 17:13 05:43 WBC 3.6 L RBC 4.15 L Hgb 12.8 L Hct 37.5 L MCV 91 MCH 30.9 MCHC 34.1 RDW 16.4 H Plt Count 150 Seg Neutrophils % 64.6 Carbonic Acid 1.12 HCO3/H2CO3 Ratio 18:1 ABG pH 7.36 ABG pCO2 37.3 ABG pO2 61.1 L ABG HCO3 20.7 ABG O2 Saturation 90.8 L ABG Base Excess -4.1 FiO2 ROOM AIR Lactic Acid 1.0 Magnesium 01/11/19 05:43 WBC RBC Hgb Hct MCV MCH MCHC RDW Plt Count Seg Neutrophils % Carbonic Acid HCO3/H2CO3 Ratio ABG pH ABG pCO2 ABG pO2 ABG HCO3 ABG O2 Saturation ABG Base Excess FiO2 Lactic Acid Magnesium 2.0 Impressions: Chest X-Ray 01/08/19 21:23 IMPRESSION: No acute cardiopulmonary findings. Head CT 01/08/19 21:23 IMPRESSION: No acute intracranial findings. Abdomen/Pelvis CT 01/09/19 00:00 IMPRESSION: 1. No acute intra-abdominal abnormality. 2. Stable appearance of the lytic lesions that involve the bilateral iliac bones and right acetabulum ; the right acetabular lesion is associated with a pathologic fracture. Chest CT 01/09/19 00:00 IMPRESSION: 1. Pleural-based opacities in the right lower lobe that could represent atelectasis. 2. Lytic lesions that involve the manubrium, left clavicle and the C7, T1, T6 and T12 vertebral bodies. As detailed above, the T6 lesion has increased in size from the prior PET and it measures approximately 2.1 cm compared to 1.3 cm. In contradistinction, the T1 and T12 lesions appear to have decreased in size and there is increased sclerosis at the margins of the lesions ; these findings could represent response to treatment. Shoulder X-Ray 01/09/19 01:01 IMPRESSION: Methylmethacrylate within known large lytic lesion in the left glenoid with no acute abnormality. Head MRI 01/10/19 00:00 IMPRESSION: NORMAL MRI OF THE BRAIN WITHOUT AND WITH INTRAVENOUS GADOLINIUM CONTRAST. EVIDENCE OF ACUTE STROKE: NO. Assessment & Plan - Diagnosis (1) Chronic pain syndrome Is this a current diagnosis for this admission?: Yes Plan: Pain meds today appear to be adequate. He is followed by pain management. (2) Encephalopathy acute Is this a current diagnosis for this admission?: Yes Plan: Now clearing. Difficult to say cause. MRI brain was negative. Could be me dication related or infectious etiology. (3) Renal cell carcinoma Qualifiers: Laterality: left Qualified Code(s): C64.2 - Malignant neoplasm of left kidney, except renal pelvis Is this a current diagnosis for this admission?: Yes Plan: All treatment on hold currently. - Time Time Spent with patient: 15-24 minutes - Plan Summary Plan Summary: Patient much improved today. Would advance diet and try to increase activity.
--- NOTE | 2019-01-11 08:22 | PDOC PROGRESS REPORT ---
Subjective Progress Note for:: 01/11/19 Subjective:: Patient is feeling much better And is alert awake oriented x3 Patient's denied any chest pain to than any shortness of the breath Patient all cultures so far negative so we discontinued the vancomycin Patient otherwise getting the physical therapy Since several medications was hold yesterday I believe the patient's encephalopathy due to the most multiple medications but is still very hard to tell Reason For Visit: ENCEPHALOPATHY Physical Exam Vital Signs: Temp Pulse Resp BP Pulse Ox 98.6 F 69 16 120/88 H 91 L 01/10/19 08:26 01/11/19 07:00 01/10/19 08:26 01/10/19 08:26 01/10/19 08:26 Intake & Output 01/10/19 01/11/19 01/12/19 06:59 06:59 06:59 Intake Total 2365 1523 Output Total 1850 500 Balance 515 1023 Weight 120.4 kg 120.2 kg General appearance: PRESENT: no acute distress, well-developed, well-nourished Head exam: PRESENT: atraumatic, normocephalic Eye exam: PRESENT: conjunctiva pink, EOMI, PERRLA. ABSENT: scleral icterus Ear exam: PRESENT: normal external ear exam Mouth exam: PRESENT: moist, tongue midline Neck exam: PRESENT: full ROM. ABSENT: carotid bruit, JVD, lymphadenopathy, thyromegaly Respiratory exam: PRESENT: clear to auscultation genna Cardiovascular exam: PRESENT: RRR. ABSENT: diastolic murmur, rubs, systolic murmur Pulses: PRESENT: normal dorsalis pedis pul, +2 pedal pulses bilateral Vascular exam: PRESENT: normal capillary refill GI/Abdominal exam: PRESENT: normal bowel sounds, soft. ABSENT: distended, guarding, mass, organolmegaly, rebound, tenderness Rectal exam: PRESENT: deferred Neurological exam: PRESENT: alert, awake, oriented to person, oriented to place, oriented to time. ABSENT: motor sensory deficit Psychiatric exam: PRESENT: appropriate affect, normal mood. ABSENT: homicidal ideation, suicidal ideation Skin exam: PRESENT: dry, intact, warm. ABSENT: cyanosis, rash Results Laboratory Results: 01/11/19 05:43 01/10/19 01/10/19 01/11/19 10:45 17:13 05:43 WBC 3.6 L RBC 4.15 L Hgb 12.8 L Hct 37.5 L MCV 91 MCH 30.9 MCHC 34.1 RDW 16.4 H Plt Count 150 Seg Neutrophils % 64.6 Carbonic Acid 1.12 HCO3/H2CO3 Ratio 18:1 ABG pH 7.36 ABG pCO2 37.3 ABG pO2 61.1 L ABG HCO3 20.7 ABG O2 Saturation 90.8 L ABG Base Excess -4.1 FiO2 ROOM AIR Lactic Acid 1.0 Magnesium 01/11/19 05:43 WBC RBC Hgb Hct MCV MCH MCHC RDW Plt Count Seg Neutrophils % Carbonic Acid HCO3/H2CO3 Ratio ABG pH ABG pCO2 ABG pO2 ABG HCO3 ABG O2 Saturation ABG Base Excess FiO2 Lactic Acid Magnesium 2.0 Impressions: Chest X-Ray 01/08/19:23 IMPRESSION: No acute cardiopulmonary findings. Head CT 01/08/19:23 IMPRESSION: No acute intracranial findings. Abdomen/Pelvis CT 01/09/19 00:00 IMPRESSION: 1. No acute intra-abdominal abnormality. 2. Stable appearance of the lytic lesions that involve the bilateral iliac bones and right acetabulum ; the right acetabular lesion is associated with a pathologic fracture. Chest CT 01/09/19 00:00 IMPRESSION: 1. Pleural-based opacities in the right lower lobe that could represent atelectasis. 2. Lytic lesions that involve the manubrium, left clavicle and the C7, T1, T6 and T12 vertebral bodies. As detailed above, the T6 lesion has increased in size from the prior PET and it measures approximately 2.1 cm compared to 1.3 cm. In contradistinction, the T1 and T12 lesions appear to have decreased in size and there is increased sclerosis at the margins of the lesions ; these findings could represent response to treatment. Shoulder X-Ray 01/09/19 01:01 IMPRESSION: Methylmethacrylate within known large lytic lesion in the left glenoid with no acute abnormality. Head MRI 01/10/19 00:00 IMPRESSION: NORMAL MRI OF THE BRAIN WITHOUT AND WITH INTRAVENOUS GADOLINIUM CONTRAST. EVIDENCE OF ACUTE STROKE: NO. Assessment & Plan - Diagnosis (1) Encephalopathy acute Is this a current diagnosis for this admission?: Yes Plan: Currently improvements multiple etiology but we still continues to hold the some of the psych medications Continues to Celexa and [place]entin's rest of the medications currently hold further evaluate as a psych outpatient With the pain management closely further recommendations continues to methadone (2) Renal cell carcinoma Qualifiers: Laterality: left Qualified Code(s): C64.2 - Malignant neoplasm of left kidney, except renal pelvis Is this a current diagnosis for this admission?: Yes Plan: Consult the local nephrology with the worsening the metastatic disease (3) Sepsis Qualifiers: Sepsis type: sepsis due to unspecified organism Severe sepsis shock status: without septic shock Is this a current diagnosis for this admission?: Yes Plan: So far all culture is so negative we will discontinues the vancomycin's patients remain 24 hours clear may be consider discontinues the other antibiotic to (4) Elevated lactic acid level Is this a current diagnosis for this admission?: Yes Plan: Currently All resolved (5) Type 2 diabetes mellitus Qualifiers: Diabetes mellitus penitentiary insulin use: without penitentiary use Is this a current diagnosis for this admission?: Yes Plan: Continues to the sliding scale (6) Hypertension Qualifiers: Hypertension type: essential hypertension Qualified Code(s): I10 - Essential (primary) hypertension Is this a current diagnosis for this admission?: Yes Plan: Currently stable (7) Dehydration Is this a current diagnosis for this admission?: Yes Plan: Continues to IV fluid (8) Chronic pain syndrome Is this a current diagnosis for this admission?: Yes Plan: Patient with significant pain issues currently see the [facility] pain management even worsening the malignancy patient's pain is very uncontrolled we will consult the local pain management for further evaluations due to the significant pain issues (9) Bipolar disorder Qualifiers: Active/Remission status: currently active Is this a current diagnosis for this admission?: Yes Plan: We currently continues to Celexa only we hold the lorazepam and also also doxepin and also hold the Cogentin will wait for the psych for further recommendations - Time Time Spent with patient: 25-34 minutes Medications reviewed and adjusted accordingly: Yes Anticipated discharge: Home with Homehealth Within: Other - Plan Summary Plan Summary: Discussed with the patient and the mother regarding the all the plans and test results coordinate care with the oncology and pain management
[2019-01-11 08:33] LABS: ANION GAP 9 (5-19); BLOOD UREA NITROGEN 11 mg/dL (7-20); CALCIUM 8.3 mg/dL (8.4-10.2); CARBON DIOXIDE 23 mmol/L (22-30); CHLORIDE 103 mmol/L (98-107); GLUCOSE 87 mg/dL (75-110)
[2019-01-11] MEDS: INSULIN LISPRO 100 UNIT/ML 3 ML VIAL SUBCUT SCH ×4 (08:46→21:33)
[2019-01-11] MEDS: CITALOPRAM HYDROBROMIDE 20 MG TABLET PO SCH (09:30)
[2019-01-11] MEDS: FAMOTIDINE 20 MG TABLET PO SCH ×2 (09:30→21:40)
[2019-01-11] MEDS: ATORVASTATIN CALCIUM 10 MG TABLET PO SCH (09:30)
[2019-01-11] MEDS: DOCUSATE SODIUM 100 MG CAPSULE PO SCH ×2 (09:30→17:47)
[2019-01-11] MEDS: CETIRIZINE 10 MG TABLET PO SCH (09:30)
[2019-01-11] MEDS: CYANOCOBALAMIN (VITAMIN B-12) 1,000 MCG TABLET PO SCH (09:30)
[2019-01-11] MEDS: PROPRANOLOL HCL 20 MG TABLET PO SCH ×2 (09:30→17:47)
[2019-01-11] MEDS: ENOXAPARIN SODIUM INJ 40 MG/0.4 ML DISP.SYRIN SUBCUT SCH (09:31)
[2019-01-11] MEDS: NYSTATIN CREAM 15 GM TP SCH ×2 (09:32→17:45)
[2019-01-11] MEDS: POLYETHYLENE GLYCOL 3350 POWDER 17 GM/1 PACKET PO SCH ×2 (09:32→17:46)
[2019-01-11] MEDS: CEFEPIME 2 GM/D5W RTU 2 GM/50 ML RTUPB IV SCH ×2 (09:32→21:39)
[2019-01-11] MEDS: FLUTICASONE NASAL SPRAY 50 MCG/SPRY 120 SPRAY/16 GM NASL SCH (09:33)
[2019-01-11] MEDS: ACETAMINOPHEN 325 MG TABLET PO PRN (21:39)
[2019-01-11] MEDS: OXYCODONE HCL IR 5 MG TABLET PO PRN (22:14)
[2019-01-12] MEDS: METHADONE HCL 10 MG TABLET PO SCH ×3 (01:42→17:41)
[2019-01-12] MEDS: NORMAL SALINE 1000 ML 1,000 ML IV PRN (04:58)
[2019-01-12 07:15] LABS: ABSOLUTE EOSINOPHILS # (AUTO) 0.2 10^3/uL (0.0-0.6); ABSOLUTE LYMPHOCYTES (AUTO) 0.8 10^3/uL (0.5-4.7); ABSOLUTE MONOCYTES (AUTO) 0.3 10^3/uL (0.1-1.4); ABSOLUTE NEUT (AUTO) 1.4 10^3/uL (1.7-8.2); BASOPHILS % (AUTO) 0.6 % (0-2); EOSINOPHILS % (AUTO) 6.4 % (0-6); HEMATOCRIT 38.8 % (37.9-51.0); HEMOGLOBIN 13.2 g/dL (13.5-17.0); LYMPHOCYTES % (AUTO) 28.9 % (13-45); MEAN CORPUSCULAR HEMOGLOBIN 30.7 pg (27.0-33.4); MEAN CORPUSCULAR VOLUME 90 fl (80-97); MONOCYTES % (AUTO) 11.9 % (3-13); PLATELET COUNT 155 10^3/uL (150-450); RED CELL DISTRIBUTION WIDTH 16.3 % (11.5-14.0); SEGMENTED NEUTROPHILS % (AUTO) 52.2 % (42-78); TOTAL CELLS COUNTED % (AUTO) 100 %; WHITE BLOOD COUNT 2.8 10^3/uL (4.0-10.5)
--- NOTE | 2019-01-12 08:05 | PDOC PROGRESS REPORT ---
Subjective Progress Note for:: 01/12/19 Subjective:: Patient still quite confused. He denies dyspnea, but states that he has cuts all over his body. He feels like he needs to have a BM, but nurses have tried several times to get him on bedpan, but he has had no success. Somehow, he cut his IV tubing yesterday. Reason For Visit: ENCEPHALOPATHY Physical Exam Vital Signs: Temp Pulse Resp BP Pulse Ox 98.4 F 65 20 144/82 H 96 01/12/19 03:54 01/12/19 03:54 01/12/19 03:54 01/12/19 03:54 01/12/19 03:54 Intake & Output 01/11/19 01/12/19 01/13/19 06:59 06:59 06:59 Intake Total 1573 1515 Output Total 500 2625 Balance 1073 -1110 Weight 120.2 kg 119.6 kg General appearance: PRESENT: obese Head exam: PRESENT: normocephalic Mouth exam: PRESENT: dry mucosa Respiratory exam: PRESENT: unlabored GI/Abdominal exam: PRESENT: soft. ABSENT: tenderness Neurological exam: PRESENT: alert, awake, oriented to place Skin exam: PRESENT: normal color Results Laboratory Results: 01/12/19 05:52 01/11/19 05:43 01/11/19 01/12/19 01/12/19 05:43 05:52 05:52 WBC 2.8 L RBC 4.30 L Hgb 13.2 L Hct 38.8 MCV 90 MCH 30.7 MCHC 34.0 RDW 16.3 H Plt Count 155 Seg Neutrophils % 52.2 Sodium 135.2 L Potassium 4.0 Chloride 103 Carbon Dioxide 23 Anion Gap 9 BUN 11 Creatinine 1.01 Est GFR ( Amer) > 60 Glucose 87 Calcium 8.3 L Magnesium 2.1 01/08/19 23:38 Catheterized Urine Urine Culture - Final NO GROWTH 2 DAYS 01/09/19 08:40 Throat Throat Culture - Final NORMAL DINO Impressions: Chest X-Ray 01/08/19 21:23 IMPRESSION: No acute cardiopulmonary findings. Head CT 01/08/19 21:23 IMPRESSION: No acute intracranial findings. Abdomen/Pelvis CT 01/09/19 00:00 IMPRESSION: 1. No acute intra-abdominal abnormality. 2. Stable appearance of the lytic lesions that involve the bilateral iliac bones and right acetabulum ; the right acetabular lesion is associated with a pathologic fracture. Chest CT 01/09/19 00:00 IMPRESSION: 1. Pleural-based opacities in the right lower lobe that could represent atelectasis. 2. Lytic lesions that involve the manubrium, left clavicle and the C7, T1, T6 and T12 vertebral bodies. As detailed above, the T6 lesion has increased in size from the prior PET and it measures approximately 2.1 cm compared to 1.3 cm. In contradistinction, the T1 and T12 lesions appear to have decreased in size and there is increased sclerosis at the margins of the lesions ; these findings could represent response to treatment. Shoulder X-Ray 01/09/19 01:01 IMPRESSION: Methylmethacrylate within known large lytic lesion in the left glenoid with no acute abnormality. Head MRI 01/10/19 00:00 IMPRESSION: NORMAL MRI OF THE BRAIN WITHOUT AND WITH INTRAVENOUS GADOLINIUM CONTRAST. EVIDENCE OF ACUTE STROKE: NO. Assessment & Plan - Diagnosis (1) Chronic pain syndrome Is this a current diagnosis for this admission?: Yes Plan: Pain management follows patient. He continues methadone and does not appear overly sedated to me. No further myoclonal jerks. (2) Encephalopathy acute Is this a current diagnosis for this admission?: Yes Plan: Still significant. MRI brain did not show any mets. His WBC count has dramatically decreased. He is not on any active chemo agents currently. According to [facility] notes he was most recently on cabozatinib which may cause pancytopenia. I am not sure when his last dose was. He was somewhat hypoxic, but now remains on O2. His Na is only mildly decreased. Glu has remained adequte. (3) Renal cell carcinoma Qualifiers: Laterality: left Qualified Code(s): C64.2 - Malignant neoplasm of left kidney, except renal pelvis Is this a current diagnosis for this admission?: Yes Plan: All treatment currently on hold. If encephalopathy does not clear, will need to discuss Hospice/palliative care only. - Time Time Spent with patient: 15-24 minutes - Plan Summary Plan Summary: Watch for fevers. I will continue to follow. Please call with any concerns.
[2019-01-12] MEDS ORDERED: (PENDING PHARMACY ID) (Cariprazine Hcl [Vraylar] 3 MG) PO SCH (09:00)
[2019-01-12] MEDS: INSULIN LISPRO 100 UNIT/ML 3 ML VIAL SUBCUT SCH ×4 (09:54→21:44)
[2019-01-12] MEDS: CEFEPIME 1 GM/D5W RTU 1 GM/50 ML RTUPB IV SCH ×2 (10:04→21:42)
[2019-01-12] MEDS: ATORVASTATIN CALCIUM 10 MG TABLET PO SCH (10:05)
[2019-01-12] MEDS: BENZTROPINE MESYLATE 1 MG TABLET PO SCH ×2 (10:05→21:43)
[2019-01-12] MEDS: DOCUSATE SODIUM 100 MG CAPSULE PO SCH ×2 (10:05→17:42)
[2019-01-12] MEDS: CETIRIZINE 10 MG TABLET PO SCH (10:05)
[2019-01-12] MEDS: CITALOPRAM HYDROBROMIDE 20 MG TABLET PO SCH (10:05)
[2019-01-12] MEDS: PROPRANOLOL HCL 20 MG TABLET PO SCH ×2 (10:06→17:42)
[2019-01-12] MEDS: ENOXAPARIN SODIUM INJ 40 MG/0.4 ML DISP.SYRIN SUBCUT SCH (10:06)
[2019-01-12] MEDS: CYANOCOBALAMIN (VITAMIN B-12) 1,000 MCG TABLET PO SCH (10:06)
[2019-01-12] MEDS: NYSTATIN CREAM 15 GM TP SCH ×2 (10:06→17:35)
[2019-01-12] MEDS: POLYETHYLENE GLYCOL 3350 POWDER 17 GM/1 PACKET PO SCH ×2 (10:07→17:35)
[2019-01-12] MEDS: FLUTICASONE NASAL SPRAY 50 MCG/SPRY 120 SPRAY/16 GM NASL SCH (10:08)
[2019-01-12] MEDS ORDERED: LACTULOSE SYRUP 20 GM/30 ML UDCUP PO PRN (13:37)
--- NOTE | 2019-01-12 13:37 | PDOC PROGRESS REPORT ---
Subjective Progress Note for:: 01/12/19 Subjective:: Patient is currently doing same Patient's up to last night was doing good but then patients get more confused at night this morning is still okay alert awake but still kind of confused No fever no chills His white count is decreased Patient's denied any chest pain no short of breath Patient seen by the pain management only new medicines OxyIR last night Patient's currently taking the Celexa so I do not think any SSRI withdrawal will restart the patient's Cogentin and other psych med but still avoid the sleep medicine at night Preferably continues to methadone with the ongoing chronic pain syndromes Discussed with the mother on the bedside still patient's have a challenge for this encephalopathyDue to the multiple reason including the multiple medications underlying significant bipolar disorder chronic pain syndromes renal cell carcinoma with the metastatic disease Is all culture is negative and patient still continues on IV antibiotics cefepime Has some constipation issue Reason For Visit: ENCEPHALOPATHY Physical Exam Vital Signs: Temp Pulse Resp BP Pulse Ox 97.9 F 68 17 139/72 H 96 01/12/19 07:59 01/12/19 07:59 01/12/19 07:59 01/12/19 07:59 01/12/19 07:59 Intake & Output 01/11/19 01/12/19 01/13/19 06:59 06:59 06:59 Intake Total 1573 1515 378 Output Total 500 2625 450 Balance 1073 -1110 -72 Weight 120.2 kg 119.6 kg General appearance: PRESENT: no acute distress, well-developed, well-nourished Head exam: PRESENT: atraumatic, normocephalic Eye exam: PRESENT: conjunctiva pink, EOMI, PERRLA. ABSENT: scleral icterus Ear exam: PRESENT: normal external ear exam Mouth exam: PRESENT: moist, tongue midline Neck exam: PRESENT: full ROM. ABSENT: carotid bruit, JVD, lymphadenopathy, thyromegaly Respiratory exam: PRESENT: clear to auscultation genna Cardiovascular exam: PRESENT: RRR. ABSENT: diastolic murmur, rubs, systolic murmur Pulses: PRESENT: normal dorsalis pedis pul, +2 pedal pulses bilateral Vascular exam: PRESENT: normal capillary refill GI/Abdominal exam: PRESENT: normal bowel sounds, soft. ABSENT: distended, guarding, mass, organolmegaly, rebound, tenderness Rectal exam: PRESENT: deferred Neurological exam: PRESENT: alert, awake, oriented to person. ABSENT: motor sen adeola deficit Psychiatric exam: PRESENT: appropriate affect, normal mood. ABSENT: homicidal ideation, suicidal ideation Skin exam: PRESENT: dry, intact, warm. ABSENT: cyanosis, rash Results Laboratory Results: 01/12/19 05:52 01/11/19 05:43 01/12/19 01/12/19 05:52 05:52 WBC 2.8 L RBC 4.30 L Hgb 13.2 L Hct 38.8 MCV 90 MCH 30.7 MCHC 34.0 RDW 16.3 H Plt Count 155 Seg Neutrophils % 52.2 Magnesium 2.1 01/08/19 23:38 Catheterized Urine Urine Culture - Final NO GROWTH 2 DAYS Impressions: Chest X-Ray 01/08/19 21:23 IMPRESSION: No acute cardiopulmonary findings. Head CT 01/08/19 21:23 IMPRESSION: No acute intracranial findings. Abdomen/Pelvis CT 01/09/19 00:00 IMPRESSION: 1. No acute intra-abdominal abnormality. 2. Stable appearance of the lytic lesions that involve the bilateral iliac bones and right acetabulum ; the right acetabular lesion is associated with a pathologic fracture. Chest CT 01/09/19 00:00 IMPRESSION: 1. Pleural-based opacities in the right lower lobe that could represent atelectasis. 2. Lytic lesions that involve the manubrium, left clavicle and the C7, T1, T6 and T12 vertebral bodies. As detailed above, the T6 lesion has increased in size from the prior PET and it measures approximately 2.1 cm compared to 1.3 cm. In contradistinction, the T1 and T12 lesions appear to have decreased in size and there is increased sclerosis at the margins of the lesions ; these findings could represent response to treatment. Shoulder X-Ray 01/09/19 01:01 IMPRESSION: Methylmethacrylate within known large lytic lesion in the left glenoid with no acute abnormality. Head MRI 01/10/19 00:00 IMPRESSION: NORMAL MRI OF THE BRAIN WITHOUT AND WITH INTRAVENOUS GADOLINIUM CONTRAST. EVIDENCE OF ACUTE STROKE: NO. Assessment & Plan - Diagnosis (1) Encephalopathy acute Is this a current diagnosis for this admission?: Yes Plan: Continues to monitor the patient's We will check the blood work and the lactic acid in the morning again (2) Renal cell carcinoma Qualifiers: Laterality: left Qualified Code(s): C64.2 - Malignant neoplasm of left kidney, except renal pelvis Is this a current diagnosis for this admission?: Yes Plan: Consult the local nephrology with the worsening the metastatic disease (3) Sepsis Qualifiers: Sepsis type: sepsis due to unspecified organism Severe sepsis shock status: without septic shock Is this a current diagnosis for this admission?: Yes Plan: So far all culture is negative's we will discontinues the vancomycin is already 3 no sign of any Infectious process to continues to vancomycin (4) Elevated lactic acid level Is this a current diagnosis for this admission?: Yes (5) Type 2 diabetes mellitus Qualifiers: Diabetes mellitus custodial insulin use: without termite treater use Is this a current diagnosis for this admission?: Yes Plan: Continues to the sliding scale (6) Hypertension Qualifiers: Hypertension type: essential hypertension Qualified Code(s): I10 - Essential (primary) hypertension Is this a current diagnosis for this admission?: Yes Plan: Currently stable (7) Dehydration Is this a current diagnosis for this admission?: Yes Plan: Continues to IV fluid (8) Chronic pain syndrome Is this a current diagnosis for this admission?: Yes Plan: Patient with significant pain issues currently see the [facility] pain management even worsening the malignancy patient's pain is very uncontrolled we will consult the local pain management for further evaluations due to the significant pain issues (9) Bipolar disorder Qualifiers: Active/Remission status: currently active Is this a current diagnosis for this admission?: Yes Plan: Restart the bipolar medication as per psych suggest - Time Time Spent with patient: 15-24 minutes Level of Care: IMCU Medications reviewed and adjusted accordingly: Yes Anticipated discharge: Other Within: Other - Plan Summary Plan Summary: We had the MiraLAX and Colace for the constipation's continues to current medications Overall prognosis is poor due to the renal cell carcinoma with metastatic disease with multiple other comorbidity
--- NOTE | 2019-01-12 14:37 | RADIOLOGY REPORT (SQ) ---
EXAM DESCRIPTION: CHEST SINGLE VIEW COMPLETED DATE/TIME: 01/12/2019 2:18 pm REASON FOR STUDY: cough COMPARISON: CT chest 01/09/2019 AP chest 01/08/2019 EXAM PARAMETERS: NUMBER OF VIEWS: One view. TECHNIQUE: Single frontal radiographic view of the chest acquired. RADIATION DOSE: NA LIMITATIONS: None. FINDINGS: LUNGS AND PLEURA: No opacities, masses or pneumothorax. No pleural effusion. MEDIASTINUM AND HILAR STRUCTURES: No masses. Contour normal. HEART AND VASCULAR STRUCTURES: Mild cardiomegaly BONES: Old bone cement left glenoid. HARDWARE: None in the chest. OTHER: No other significant finding. IMPRESSION: No acute findings TECHNICAL DOCUMENTATION: JOB ID: [id number] [employer]- All Rights Reserved Reading location - IP/workstation name: [email or web address]
[2019-01-12] MEDS: ACETAMINOPHEN 325 MG TABLET PO PRN (15:15)
[2019-01-12] MEDS: FAMOTIDINE 20 MG TABLET PO SCH ×2 (15:34→21:43)
[2019-01-12] MEDS: ONDANSETRON HCL INJ/PF 4 MG/2 ML SDV IV PRN ×2 (16:56→21:44)
[2019-01-12] MEDS: Cariprazine Hcl [Vraylar] 3 MG PO SCH (21:43)
[2019-01-13] MEDS: METHADONE HCL 10 MG TABLET PO SCH ×3 (01:32→18:10)
[2019-01-13 07:29] LABS: ABSOLUTE EOSINOPHILS # (AUTO) 0.3 10^3/uL (0.0-0.6); ABSOLUTE LYMPHOCYTES (AUTO) 0.9 10^3/uL (0.5-4.7); ABSOLUTE MONOCYTES (AUTO) 0.3 10^3/uL (0.1-1.4); ABSOLUTE NEUT (AUTO) 1.6 10^3/uL (1.7-8.2); BASOPHILS % (AUTO) 0.9 % (0-2); EOSINOPHILS % (AUTO) 9.8 % (0-6); HEMATOCRIT 39.6 % (37.9-51.0); HEMOGLOBIN 13.4 g/dL (13.5-17.0); MEAN CORPUSCULAR HEMOGLOBIN 30.9 pg (27.0-33.4); MEAN CORPUSCULAR HGB CONC 33.8 g/dL (32.0-36.0); MEAN CORPUSCULAR VOLUME 92 fl (80-97); MONOCYTES % (AUTO) 9.6 % (3-13); PLATELET COUNT 155 10^3/uL (150-450); RED BLOOD COUNT 4.33 10^6/uL (4.35-5.55); RED CELL DISTRIBUTION WIDTH 16.4 % (11.5-14.0); SEGMENTED NEUTROPHILS % (AUTO) 49.7 % (42-78); TOTAL CELLS COUNTED % (AUTO) 100 %; WHITE BLOOD COUNT 3.1 10^3/uL (4.0-10.5)
[2019-01-13 07:42] LABS: ALBUMIN 3.4 g/dL (3.5-5.0); ALKALINE PHOSPHATASE 189 U/L (38-126); ANION GAP 7 (5-19); ASPARTATE AMINO TRANSFERASE 51 U/L (17-59); BILIRUBIN,DIRECT 0.1 mg/dL (0.0-0.4); BILIRUBIN,TOTAL 0.4 mg/dL (0.2-1.3); BLOOD UREA NITROGEN 8 mg/dL (7-20); CALCIUM 8.8 mg/dL (8.4-10.2); CARBON DIOXIDE 28 mmol/L (22-30); CHLORIDE 106 mmol/L (98-107); GLUCOSE 79 mg/dL (75-110); POTASSIUM 4.3 mmol/L (3.6-5.0); TOTAL PROTEIN 6.6 g/dL (6.3-8.2)
[2019-01-13] MEDS: INSULIN LISPRO 100 UNIT/ML 3 ML VIAL SUBCUT SCH ×4 (07:56→21:39)
[2019-01-13] MEDS: CYANOCOBALAMIN (VITAMIN B-12) 1,000 MCG TABLET PO SCH (09:54)
[2019-01-13] MEDS: OXYCODONE HCL IR 5 MG TABLET PO PRN ×2 (09:54→23:01)
[2019-01-13] MEDS: FAMOTIDINE 20 MG TABLET PO SCH ×2 (09:54→22:14)
[2019-01-13] MEDS: BENZTROPINE MESYLATE 1 MG TABLET PO SCH ×2 (09:54→22:14)
[2019-01-13] MEDS: CETIRIZINE 10 MG TABLET PO SCH (09:55)
[2019-01-13] MEDS: ATORVASTATIN CALCIUM 10 MG TABLET PO SCH (09:55)
[2019-01-13] MEDS: PROPRANOLOL HCL 20 MG TABLET PO SCH ×2 (09:55→18:10)
[2019-01-13] MEDS: DOCUSATE SODIUM 100 MG CAPSULE PO SCH ×2 (09:55→18:11)
[2019-01-13] MEDS: CITALOPRAM HYDROBROMIDE 20 MG TABLET PO SCH (09:55)
[2019-01-13] MEDS: POLYETHYLENE GLYCOL 3350 POWDER 17 GM/1 PACKET PO SCH ×2 (09:56→17:44)
[2019-01-13] MEDS: NYSTATIN CREAM 15 GM TP SCH ×2 (09:56→17:44)
[2019-01-13] MEDS: CEFEPIME 1 GM/D5W RTU 1 GM/50 ML RTUPB IV SCH ×2 (09:56→22:41)
[2019-01-13] MEDS: FLUTICASONE NASAL SPRAY 50 MCG/SPRY 120 SPRAY/16 GM NASL SCH (09:57)
[2019-01-13] MEDS: ACETAMINOPHEN 325 MG TABLET PO PRN ×2 (11:16→23:04)
[2019-01-13] MEDS: LIDOCAINE 5% OINTMENT 35.44 GM TP PRN (11:17)
[2019-01-13] MEDS: ENOXAPARIN SODIUM INJ 40 MG/0.4 ML DISP.SYRIN SUBCUT SCH (11:17)
--- NOTE | 2019-01-13 11:50 | PDOC PROGRESS REPORT ---
Subjective Progress Note for:: 01/13/19 Subjective:: Patient remains confused. He denies any new complaints today. Mother states that he had another bad night. He was hallucinating and perhaps sundowning with agitation. He is still not eating much. Reason For Visit: ENCEPHALOPATHY Physical Exam Vital Signs: Temp Pulse Resp BP Pulse Ox 98.2 F 70 17 138/85 H 97 01/13/19 07:16 01/13/19 07:16 01/13/19 07:16 01/13/19 07:16 01/13/19 07:16 Intake & Output 01/12/19 01/13/19 01/14/19 06:59 06:59 06:59 Intake Total 1515 828 50 Output Total 2625 1225 Balance -1110 -397 50 Weight 119.6 kg 119.2 kg General appearance: PRESENT: no acute distress, obese Head exam: PRESENT: normocephalic Respiratory exam: PRESENT: clear to auscultation genna, unlabored Cardiovascular exam: PRESENT: RRR Neurological exam: PRESENT: altered, awake Psychiatric exam: PRESENT: appropriate affect Skin exam: PRESENT: normal color Results Laboratory Results: 01/13/19 07:13 01/13/19 07:13 01/13/19 01/13/19 01/13/19 07:13 07:13 07:13 WBC 3.1 L RBC 4.33 L Hgb 13.4 L Hct 39.6 MCV 92 MCH 30.9 MCHC 33.8 RDW 16.4 H Plt Count 155 Seg Neutrophils % 49.7 Sodium 140.7 Potassium 4.3 Chloride 106 Carbon Dioxide 28 Anion Gap 7 BUN 8 Creatinine 0.82 Est GFR ( Amer) > 60 Glucose 79 Lactic Acid 1.4 Calcium 8.8 Total Bilirubin 0.4 AST 51 Alkaline Phosphatase 189 H Total Protein 6.6 Albumin 3.4 L Impressions: Head CT 01/08/19 21:23 IMPRESSION: No acute intracranial findings. Abdomen/Pelvis CT 01/09/19 00:00 IMPRESSION: 1. No acute intra-abdominal abnormality. 2. Stable appearance of the lytic lesions that involve the bilateral iliac bones and right acetabulum ; the right acetabular lesion is associated with a pathologic fracture. Chest CT 01/09/19 00:00 IMPRESSION: 1. Pleural-based opacities in the right lower lobe that could rep resent atelectasis. 2. Lytic lesions that involve the manubrium, left clavicle and the C7, T1, T6 an d T12 vertebral bodies. As detailed above, the T6 lesion has increased in size from the prior PET and it measures approximately 2.1 cm compared to 1.3 cm. In contradistinction, the T1 and T12 lesions appear to have decreased in size and there is increased sclerosis at the margins of the lesions ; these findings could represent response to treatment. Shoulder X-Ray 01/09/19 01:01 IMPRESSION: Methylmethacrylate within known large lytic lesion in the left glenoid with no acute abnormality. Head MRI 01/10/19 00:00 IMPRESSION: NORMAL MRI OF THE BRAIN WITHOUT AND WITH INTRAVENOUS GADOLINIUM CONTRAST. EVIDENCE OF ACUTE STROKE: NO. Chest X-Ray 01/12/19 00:00 IMPRESSION: No acute findings Assessment & Plan - Diagnosis (1) Chronic pain syndrome Is this a current diagnosis for this admission?: Yes Plan: Pain currently controlled. (2) Encephalopathy acute Is this a current diagnosis for this admission?: Yes Plan: Memory still an issue. Continues to have agitation at night. He is still actively hallucinating. (3) Renal cell carcinoma Qualifiers: Laterality: left Qualified Code(s): C64.2 - Malignant neoplasm of left kidney, except renal pelvis Is this a current diagnosis for this admission?: Yes Plan: No further treatment recommended at this point, until patient is more stable and out of the hospital. - Time Time Spent with patient: 15-24 minutes - Plan Summary Plan Summary: Although patient has been asked not to get out of bed for safety reasons, I'm not sure why he may not get up with physical therapy or to a bedside commode with assistance if possible. He needs to start moving some.
[2019-01-13] MEDS: NYSTATIN/DEXAMETH/DIPHEN SUSP 120 ML PO SCH ×3 (14:46→23:02)
--- NOTE | 2019-01-13 15:31 | PDOC PROGRESS REPORT ---
Subjective Progress Note for:: 01/13/19 Subjective:: Patient seen by the bedside, history of renal cell cancer with bone metastasis, he was confused last night, he required restraint, he is more oriented to time place and person today, no new complaints Reason For Visit: ENCEPHALOPATHY Physical Exam Vital Signs: Temp Pulse Resp BP Pulse Ox 98.2 F 65 17 128/75 H 96 01/13/19 10:55 01/13/19 14:00 01/13/19 10:55 01/13/19 10:55 01/13/19 10:55 Intake & Output 01/12/19 01/13/19 01/14/19 06:59 06:59 06:59 Intake Total 1515 828 410 Output Total 2625 1225 1300 Balance -1116 -397 -890 Weight 119.6 kg 119.2 kg General appearance: PRESENT: no acute distress Eye exam: PRESENT: PERRLA Respiratory exam: PRESENT: clear to auscultation genna Cardiovascular exam: PRESENT: +S1, +S2 GI/Abdominal exam: PRESENT: soft Neurological exam: PRESENT: alert Results Laboratory Results: 01/13/19 07:13 01/13/19 07:13 01/13/19 01/13/19 01/13/19 07:13 07:13 07:13 WBC 3.1 L RBC 4.33 L Hgb 13.4 L Hct 39.6 MCV 92 MCH 30.9 MCHC 33.8 RDW 16.4 H Plt Count 155 Seg Neutrophils % 49.7 Sodium 140.7 Potassium 4.3 Chloride 106 Carbon Dioxide 28 Anion Gap 7 BUN 8 Creatinine 0.82 Est GFR ( Amer) > 60 Glucose 79 Lactic Acid 1.4 Calcium 8.8 Total Bilirubin 0.4 AST 51 Alkaline Phosphatase 189 H Total Protein 6.6 Albumin 3.4 L Impressions: Head CT 01/08/19 21:23 IMPRESSION: No acute intracranial findings. Abdomen/Pelvis CT 01/09/19 00:00 IMPRESSION: 1. No acute intra-abdominal abnormality. 2. Stable appearance of the lytic lesions that involve the bilateral iliac bones and right acetabulum ; the right acetabular lesion is associated with a pathologic fracture. Chest CT 01/09/19 00:00 IMPRESSION: 1. Pleural-based opacities in the right lower lobe that could represent atelectasis. 2. Lytic lesions that involve the manubrium, left clavicle and the C7, T1, T6 and T12 vertebral bodies. As detailed above, the T6 lesion has increased in size from the prior PET and it measures approximately 2.1 cm compared to 1.3 cm. In contradistinction, the T1 and T12 lesions appear to have decreased in size and there is increased sclerosis at the margins of the lesions ; these findings could represent response to treatment. Shoulder X-Ray 01/09/19 01:01 IMPRESSION: Methylmethacrylate within known large lytic lesion in the left glenoid with no acute abnormality. Head MRI 01/10/19 00:00 IMPRESSION: NORMAL MRI OF THE BRAIN WITHOUT AND WITH INTRAVENOUS GADOLINIUM CONTRAST. EVIDENCE OF ACUTE STROKE: NO. Chest X-Ray 01/12/19 00:00 IMPRESSION: No acute findings Assessment & Plan - Diagnosis (1) Encephalopathy acute Is this a current diagnosis for this admission?: Yes (2) Renal cell carcinoma Qualifiers: Laterality: left Qualified Code(s): C64.2 - Malignant neoplasm of left kidney, except renal pelvis Is this a current diagnosis for this admission?: Yes - Time Time Spent with patient: 25-34 minutes Level of Care: IMCU Medications reviewed and adjusted accordingly: Yes - Plan Summary Plan Summary: Continue present line of treatment
[2019-01-13] MEDS: ONDANSETRON HCL INJ/PF 4 MG/2 ML SDV IV PRN (18:10)
[2019-01-13] MEDS: Cariprazine Hcl [Vraylar] 3 MG PO SCH (22:14)
[2019-01-14] MEDS: LIDOCAINE 5% OINTMENT 35.44 GM TP PRN ×2 (01:12→12:37)
[2019-01-14] MEDS: METHADONE HCL 10 MG TABLET PO SCH ×3 (01:13→18:19)
[2019-01-14] MEDS: NYSTATIN/DEXAMETH/DIPHEN SUSP 120 ML PO SCH ×3 (05:52→17:41)
[2019-01-14] MEDS: INSULIN LISPRO 100 UNIT/ML 3 ML VIAL SUBCUT SCH ×4 (08:58→21:14)
[2019-01-14] MEDS: FLUTICASONE NASAL SPRAY 50 MCG/SPRY 120 SPRAY/16 GM NASL SCH (10:08)
[2019-01-14] MEDS: CEFEPIME 1 GM/D5W RTU 1 GM/50 ML RTUPB IV SCH (10:09)
[2019-01-14] MEDS: CYANOCOBALAMIN (VITAMIN B-12) 1,000 MCG TABLET PO SCH (10:09)
[2019-01-14] MEDS: PROPRANOLOL HCL 20 MG TABLET PO SCH ×2 (10:09→18:19)
[2019-01-14] MEDS: BENZTROPINE MESYLATE 1 MG TABLET PO SCH ×2 (10:09→21:04)
[2019-01-14] MEDS: FAMOTIDINE 20 MG TABLET PO SCH ×2 (10:10→21:04)
[2019-01-14] MEDS: CETIRIZINE 10 MG TABLET PO SCH (10:10)
[2019-01-14] MEDS: ATORVASTATIN CALCIUM 10 MG TABLET PO SCH (10:10)
[2019-01-14] MEDS: DOCUSATE SODIUM 100 MG CAPSULE PO SCH ×2 (10:10→17:39)
[2019-01-14] MEDS: CITALOPRAM HYDROBROMIDE 20 MG TABLET PO SCH (10:10)
[2019-01-14] MEDS: POLYETHYLENE GLYCOL 3350 POWDER 17 GM/1 PACKET PO SCH ×2 (10:11→17:41)
[2019-01-14] MEDS: ENOXAPARIN SODIUM INJ 40 MG/0.4 ML DISP.SYRIN SUBCUT SCH (10:11)
[2019-01-14] MEDS: NYSTATIN CREAM 15 GM TP SCH ×2 (10:11→17:41)
[2019-01-14] MEDS: ONDANSETRON HCL INJ/PF 4 MG/2 ML SDV IV PRN ×2 (10:19→21:04)
--- NOTE | 2019-01-14 12:29 | PDOC PROGRESS REPORT ---
Subjective Progress Note for:: 01/14/19 Subjective:: Patient was seen today by the bedside, he is hallucinating, visually, he said he saw men with guns last night, is not hearing voices. He had MRI of the brain done since admission there is no structural lesion that would explain his confusion and hallucination, there is no electrolyte derangement that will explain his confusion, he has kidney cancer with bone metastasis he is on opioid therapy, that could be a factor in the etiology of his confusion and hallucina tion also on antibiotic, I with discontinue antibiotic today I do not see any ongoing infection at this time Reason For Visit: ENCEPHALOPATHY Physical Exam Vital Signs: Temp Pulse Resp BP Pulse Ox 98.0 F 58 L 17 140/91 H 100 01/14/19 11:04 01/14/19 11:04 01/14/19 11:04 01/14/19 11:04 01/14/19 11:04 Intake & Output 01/13/19 01/14/19 01/15/19 06:59 06:59 06:59 Intake Total 828 530 50 Output Total 1225 2125 Balance -397 -1595 50 Weight 119.2 kg 117.9 kg General appearance: PRESENT: no acute distress Eye exam: PRESENT: PERRLA Respiratory exam: PRESENT: clear to auscultation genna Cardiovascular exam: PRESENT: +S1, +S2 GI/Abdominal exam: PRESENT: soft Neurological exam: PRESENT: alert, CN II-XII grossly intact Results Laboratory Results: 01/13/19 07:13 01/13/19 07:13 01/09/19 07:35 Blood Blood Culture - Final NO GROWTH IN 5 DAYS 01/09/19 03:18 Blood Blood Culture - Final NO GROWTH IN 5 DAYS Impressions: Head CT 01/08/19 21:23 IMPRESSION: No acute intracranial findings. Abdomen/Pelvis CT 01/09/19 00:00 IMPRESSION: 1. No acute intra-abdominal abnormality. 2. Stable appearance of the lytic lesions that involve the bilateral iliac bones and right acetabulum ; the right acetabular lesion is associated with a pathologic fracture. Chest CT 01/09/19 00:00 IMPRESSION: 1. Pleural-based opacities in the right lower lobe that could represent atelectasis. 2. Lytic lesions that involve the manubrium, left clavicle and the C7, T1, T6 and T12 vertebral bodies. As detailed above, the T6 lesion has increased in siz e from the prior PET and it measures approximately 2.1 cm compared to 1.3 cm. In contradistinction, the T1 and T12 lesions appear to have decreased in size and there is increased sclerosis at the margins of the lesions ; these findings could represent response to treatment. Shoulder X-Ray 01/09/19 01:01 IMPRESSION: Methylmethacrylate within known large lytic lesion in the left glenoid with no acute abnormality. Head MRI 01/10/19 00:00 IMPRESSION: NORMAL MRI OF THE BRAIN WITHOUT AND WITH INTRAVENOUS GADOLINIUM CONTRAST. EVIDENCE OF ACUTE STROKE: NO. Chest X-Ray 01/12/19 00:00 IMPRESSION: No acute findings Assessment & Plan - Diagnosis (1) Encephalopathy acute Is this a current diagnosis for this admission?: Yes Plan: The etiology is not clear, he has delirium the present consensus is that antipsychotic should be avoided in patient with delirium, but this patient is very delirious it is probably somewhat reasonable to give low dose Haldol 0.5 mg IV as needed to control his psychotic symptoms (2) Renal cell carcinoma Qualifiers: Laterality: left Qualified Code(s): C64.2 - Malignant neoplasm of left kidney, except renal pelvis Is this a current diagnosis for this admission?: Yes - Time Time Spent with patient: 35 or more minutes Level of Care: IMCU
[2019-01-14] MEDS ORDERED: HALOPERIDOL LACTATE INJ 5 MG/1 ML VIAL IV PRN ×2 (12:57→15:09)
[2019-01-14] MEDS ORDERED: HALOPERIDOL LACTATE INJ 5 MG/1 ML VIAL IM PRN (14:40)
[2019-01-14 16:00] LABS: APPEARANCE,URINE CLEAR; BILIRUBIN,URINE NEGATIVE (NEGATIVE); COLOR,URINE YELLOW; GLUCOSE, URINE NEGATIVE (NEGATIVE); KETONES,URINE NEGATIVE (NEGATIVE); LEUKOCYTE ESTERASE,URINE NEGATIVE (NEGATIVE); NITRITE,URINE NEGATIVE (NEGATIVE); PROTEIN,URINE NEGATIVE (NEGATIVE); URINE SPECIFIC GRAVITY 1.018; UROBILINOGEN,URINE NEGATIVE mg/dL (<2.0)
[2019-01-14] MEDS: Cariprazine Hcl [Vraylar] 3 MG PO SCH (21:05)
[2019-01-15] MEDS: NYSTATIN/DEXAMETH/DIPHEN SUSP 120 ML PO SCH ×5 (01:30→23:44)
[2019-01-15] MEDS: Cariprazine Hcl [Vraylar] 3 MG PO SCH ×2 (01:30→21:05)
[2019-01-15] MEDS: METHADONE HCL 10 MG TABLET PO SCH ×3 (02:57→17:25)
[2019-01-15] MEDS: OXYCODONE HCL IR 5 MG TABLET PO PRN ×2 (04:37→17:25)
[2019-01-15 06:38] LABS: ANION GAP 10 (5-19); BLOOD UREA NITROGEN 10 mg/dL (7-20); CALCIUM 9.6 mg/dL (8.4-10.2); CARBON DIOXIDE 28 mmol/L (22-30); CHLORIDE 104 mmol/L (98-107); GLUCOSE 91 mg/dL (75-110); POTASSIUM 4.6 mmol/L (3.6-5.0)
[2019-01-15] MEDS: INSULIN LISPRO 100 UNIT/ML 3 ML VIAL SUBCUT SCH ×4 (07:52→21:03)
--- NOTE | 2019-01-15 08:53 | PDOC PROGRESS REPORT ---
Subjective Progress Note for:: 01/15/19 Subjective:: Patient unchanged from yesterday, except that he was unable to void on his own. Nurses are now using strait cath to help with this. His mother report similar episode last month while at [facility]. Reed was placed for a few days, and on removal, he was able to void again. He is still complaining of sores in his mouth. Visual Hallucinations continue. Reason For Visit: ENCEPHALOPATHY Physical Exam Vital Signs: Temp Pulse Resp BP Pulse Ox 97.7 F 75 17 132/81 H 98 01/15/19 07:33 01/15/19 07:33 01/15/19 07:33 01/15/19 07:33 01/15/19 07:33 Intake & Output 01/14/19 01/15/19 01/16/19 06:59 06:59 06:59 Intake Total 530 810 Output Total 2125 3200 Balance -1595 -2390 Weight 117.9 kg 116.7 kg General appearance: PRESENT: obese Head exam: PRESENT: normocephalic Eye exam: PRESENT: EOMI Respiratory exam: PRESENT: unlabored Extremities exam: ABSENT: pedal edema Neurological exam: PRESENT: alert, awake Psychiatric exam: PRESENT: appropriate affect Skin exam: PRESENT: normal color Results Laboratory Results: 01/13/19 07:13 01/15/19 05:46 01/14/19 01/15/19 14:45 05:46 Sodium 142.2 Potassium 4.6 Chloride 104 Carbon Dioxide 28 Anion Gap 10 BUN 10 Creatinine 0.93 Est GFR ( Amer) > 60 Glucose 91 Calcium 9.6 Urine Color YELLOW Urine Appearance CLEAR Urine pH 6.0 Ur Specific [place] 1.018 Urine Protein NEGATIVE Urine Glucose (UA) NEGATIVE Urine Ketones NEGATIVE Urine Blood NEGATIVE Urine Nitrite NEGATIVE Ur Leukocyte Esterase NEGATIVE Urine WBC (Auto) 2 Urine RBC (Auto) 1 01/09/19 18:34 Blood Blood Culture - Final NO GROWTH IN 5 DAYS 01/09/19 18:20 Blood Blood Culture - Final NO GROWTH IN 5 DAYS 01/09/19 07:35 Blood Blood Culture - Final NO GROWTH IN 5 DAYS Impressions: Head CT 01/08/19 21:23 IMPRESSION: No acute intracranial findings. Abdomen/Pelvis CT 01/09/19 00:00 IMPRESSION: 1. No acute intra-abdominal abnormality. 2. Stable appearance of the lytic lesions that involve the bilateral iliac bones and right acetabulum ; the right acetabular lesion is associated with a pathologic fracture. Chest CT 01/09/19 00:00 IMPRESSION: 1. Pleural-based opacities in the right lower lobe that could represent atelectasis. 2. Lytic lesions that involve the manubrium, left clavicle and the C7, T1, T6 and T12 vertebral bodies. As detailed above, the T6 lesion has increased in size from the prior PET and it measures approximately 2.1 cm compared to 1.3 cm. In contradistinction, the T1 and T12 lesions appear to have decreased in size and there is increased sclerosis at the margins of the lesions ; these findings could represent response to treatment. Shoulder X-Ray 01/09/19 01:01 IMPRESSION: Methylmethacrylate within known large lytic lesion in the left glenoid with no acute abnormality. Head MRI 01/10/19 00:00 IMPRESSION: NORMAL MRI OF THE BRAIN WITHOUT AND WITH INTRAVENOUS GADOLINIUM CONTRAST. EVIDENCE OF ACUTE STROKE: NO. Chest X-Ray 01/12/19 00:00 IMPRESSION: No acute findings Assessment & Plan - Diagnosis (1) Chronic pain syndrome Is this a current diagnosis for this admission?: Yes (2) Encephalopathy acute Is this a current diagnosis for this admission?: Yes (3) Renal cell carcinoma Qualifiers: Laterality: left Qualified Code(s): C64.2 - Malignant neoplasm of left kidney, except renal pelvis Is this a current diagnosis for this admission?: Yes - Time Time Spent with patient: 15-24 minutes - Plan Summary Plan Summary: I discussed with patient, mother and Dr. Ortega the fact that there is no good reason for his current Hallucinations. This may be a paraneoplastic process. I would be VERY reluctant to try to treat him with active treatment given his hallucinations and at times combative behavior. I have explained to patient and family that this may be as good as things are going to get and we should consider discharge and see if he will improve further at home.
[2019-01-15] MEDS ORDERED: TAMSULOSIN HCL 0.4 MG CAP.SR.24H PO ONE (09:00)
[2019-01-15] MEDS: ACETAMINOPHEN 325 MG TABLET PO PRN ×3 (09:43→23:44)
[2019-01-15] MEDS: CETIRIZINE 10 MG TABLET PO SCH (09:44)
[2019-01-15] MEDS: ATORVASTATIN CALCIUM 10 MG TABLET PO SCH (09:44)
[2019-01-15] MEDS: FAMOTIDINE 20 MG TABLET PO SCH ×2 (09:44→21:05)
[2019-01-15] MEDS: CITALOPRAM HYDROBROMIDE 20 MG TABLET PO SCH (09:44)
[2019-01-15] MEDS: POLYETHYLENE GLYCOL 3350 POWDER 17 GM/1 PACKET PO SCH ×2 (09:45→17:21)
[2019-01-15] MEDS: BENZTROPINE MESYLATE 1 MG TABLET PO SCH ×2 (09:45→21:05)
[2019-01-15] MEDS: FLUTICASONE NASAL SPRAY 50 MCG/SPRY 120 SPRAY/16 GM NASL SCH (09:45)
[2019-01-15] MEDS: DOCUSATE SODIUM 100 MG CAPSULE PO SCH ×2 (09:45→17:25)
[2019-01-15] MEDS: PROPRANOLOL HCL 20 MG TABLET PO SCH ×2 (09:45→17:26)
[2019-01-15] MEDS: CYANOCOBALAMIN (VITAMIN B-12) 1,000 MCG TABLET PO SCH (09:45)
[2019-01-15] MEDS: LIDOCAINE 5% OINTMENT 35.44 GM TP PRN ×2 (09:46→19:36)
[2019-01-15] MEDS: ENOXAPARIN SODIUM INJ 40 MG/0.4 ML DISP.SYRIN SUBCUT SCH (09:46)
[2019-01-15] MEDS: NYSTATIN CREAM 15 GM TP SCH ×2 (09:46→17:24)
--- NOTE | 2019-01-15 10:08 | PDOC PROGRESS REPORT ---
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 which making the patient's confusions with ongoing process I think patient is currently otherwise no sign of any infectious process no electrolytes issues hopefully will increase the Flomax if able to be patients can go home tomorrow otherwise we can put the Reed catheter temporary Cussed with the patient and the mother myself and oncology in the room regarding the overall prognosis is not that great due to the worsening the stage IV renal cell carcinoma Reason For Visit: ENCEPHALOPATHY Physical Exam Vital Signs: Temp Pulse Resp BP Pulse Ox 97.7 F 75 17 132/81 H 98 01/15/19 07:33 01/15/19 07:33 01/15/19 07:33 01/15/19 07:33 01/15/19 07:33 Intake & Output 01/14/19 01/15/19 01/16/19 06:59 06:59 06:59 Intake Total 530 810 Output Total 2125 3200 Balance -1595 -2390 Weight 117.9 kg 116.7 kg General appearance: PRESENT: no acute distress, well-developed, well-nourished Head exam: PRESENT: atraumatic, normocephalic Eye exam: PRESENT: conjunctiva pink, EOMI, PERRLA. ABSENT: scleral icterus Ear exam: PRESENT: normal external ear exam Mouth exam: PRESENT: moist, tongue midline Neck exam: PRESENT: full ROM. ABSENT: carotid bruit, JVD, lymphadenopathy, thyromegaly Respiratory exam: PRESENT: clear to auscultation genna Cardiovascular exam: PRESENT: RRR. ABSENT: diastolic murmur, rubs, systolic m urmur Vascular exam: PRESENT: normal capillary refill GI/Abdominal exam: PRESENT: normal bowel sounds, soft. ABSENT: distended, guarding, mass, organolmegaly, rebound, tenderness Rectal exam: PRESENT: deferred Neurological exam: PRESENT: alert, awake, oriented to person, oriented to place, oriented to time, oriented to situation. ABSENT: motor sensory deficit Psychiatric exam: PRESENT: appropriate affect, normal mood. ABSENT: homicidal ideation, suicidal ideation Skin exam: PRESENT: dry, intact, warm. ABSENT: cyanosis, rash Results Laboratory Results: 01/13/19 07:13 01/15/19 05:46 01/14/19 01/15/19 14:45 05:46 Sodium 142.2 Potassium 4.6 Chloride 104 Carbon Dioxide 28 Anion Gap 10 BUN 10 Creatinine 0.93 Est GFR ( Amer) > 60 Glucose 91 Calcium 9.6 Urine Color YELLOW Urine Appearance CLEAR Urine pH 6.0 Ur Specific [place] 1.018 Urine Protein NEGATIVE Urine Glucose (UA) NEGATIVE Urine Ketones NEGATIVE Urine Blood NEGATIVE Urine Nitrite NEGATIVE Ur Leukocyte Esterase NEGATIVE Urine WBC (Auto) 2 Urine RBC (Auto) 1 01/09/19 18:34 Blood Blood Culture - Final NO GROWTH IN 5 DAYS 01/09/19 18:20 Blood Blood Culture - Final NO GROWTH IN 5 DAYS 01/09/19 07:35 Blood Blood Culture - Final NO GROWTH IN 5 DAYS Impressions: Head CT 01/08/19 21:23 IMPRESSION: No acute intracranial findings. Abdomen/Pelvis CT 01/09/19 00:00 IMPRESSION: 1. No acute intra-abdominal abnormality. 2. Stable appearance of the lytic lesions that involve the bilateral iliac bones and right acetabulum ; the right acetabular lesion is associated with a pathologic fracture. Chest CT 01/09/19 00:00 IMPRESSION: 1. Pleural-based opacities in the right lower lobe that could represent atelectasis. 2. Lytic lesions that involve the manubrium, left clavicle and the C7, T1, T6 and T12 vertebral bodies. As detailed above, the T6 lesion has increased in size from the prior PET and it measures approximately 2.1 cm compared to 1.3 cm. In contradistinction, the T1 and T12 lesions appear to have decreased in size and there is increased sclerosis at the margins of the lesions ; these findings could represent response to treatment. Shoulder X-Ray 01/09/19 01:01 IMPRESSION: Methylmethacrylate within known large lytic lesion in the left glenoid with no acute abnormality. Head MRI 01/10/19 00:00 IMPRESSION: NORMAL MRI OF THE BRAIN WITHOUT AND WITH INTRAVENOUS GADOLINIUM CONTRAST. EVIDENCE OF ACUTE STROKE: NO. Chest X-Ray 01/12/19 00:00 IMPRESSION: No acute findings Assessment & Plan - Diagnosis (1) Encephalopathy acute Is this a current diagnosis for this admission?: Yes Plan: Currently improving's pretty much all work-up is negative including the MRI of the brain no sign of infections could be a medications versus paraneoplastic syndromes (2) Renal cell carcinoma Qualifiers: Laterality: left Qualified Code(s): C64.2 - Malignant neoplasm of left kidney, except renal pelvis Is this a current diagnosis for this admission?: Yes Plan: Currently follow with oncology (3) Sepsis Qualifiers: Sepsis type: sepsis due to unspecified organism Severe sepsis shock status: without septic shock Is this a current diagnosis for this admission?: Yes Plan: Culture is so far negative discontinues to antibiotics patients remain afebrile (4) Elevated lactic acid level Is this a current diagnosis for this admission?: Yes (5) Type 2 diabetes mellitus Qualifiers: Diabetes mellitus penitentiary insulin use: without creative project manager use Is this a current diagnosis for this admission?: Yes Plan: Continues to the sliding scale (6) Hypertension Qualifiers: Hypertension type: essential hypertension Qualified Code(s): I10 - Essential (primary) hypertension Is this a current diagnosis for this admission?: Yes Plan: Currently stable (7) Dehydration Is this a current diagnosis for this admission?: Yes Plan: Continues to IV fluid (8) Chronic pain syndrome Is this a current diagnosis for this admission?: Yes Plan: Patient with significant pain issues currently see the [facility] pain management even worsening the malignancy patient's pain is very uncontrolled we will consult the local pain management for further evaluations due to the significant pain issues (9) Bipolar disorder Qualifiers: Active/Remission status: currently active Is this a current diagnosis for this admission?: Yes Plan: Restart the bipolar medication as per psych suggest - Time Time Spent with patient: 15-24 minutes Level of Care: IMCU Medications reviewed and adjusted accordingly: Yes Anticipated discharge: Home with Homehealth Within: within 24 hours - Plan Summary Plan Summary: Continues to current medications hopefully patient should discharge tomorrow if remains stable we will add the Flomax today
[2019-01-15] MEDS: ONDANSETRON HCL INJ/PF 4 MG/2 ML SDV IV PRN (11:26)
--- NOTE | 2019-01-15 17:05 | PSYCHOLOGICAL NOTE ---
Psych Note - Psych Note Date seen by psych provider: 01/10/19 Time seen by psych provider: 13:30 Psych Note: Reason for consult: Medication recommendations due to significant number of psychiatric medications Patient arrived via EMS with c/o altered mental status and possible OD. EMS report pt has hx of kidney cancer, had L kidney removed previously. Reports cancer spread to bones and pt is on multiple pain medications. Pt also had a few teeth removed on 01/04/19 and is also on antibiotics. Mother reports pt has acted this way previously was he was placed on a new chemo medication, but was taken off of it. Pt is currently on chemo medication. Mother reports pt has been sleeping more than usual the past 3 days, has not been eating or drinking like he normally does and "not acting like himself." Clinician spoke with attending nurse; she reports the patient is unable to engage in evaluation currently She states the patient currently has altered mental status. there is concern the patient needs a higher level to help control the patient's pain. His cancer is now in the bones and he has had a difficult time controlling the pain without "crossing over the line" into too much pain medication. He is reportedly in significant pain and the current plan of care is probable Hospice/palliative care. Patient's home medications for mental health are as follows: Cogentin 2 mg twice daily Vraylar 3 mg at 9 PM Celexa 40 mg daily propanolol 20 mg twice daily prazosin 1 mg nightly Medication recommendations per [facility]'s contracted psychiatrist Dr. Brandi HEWITT are as follows Please use Clonidine 0.1mg at bedtime to replace Prazosin since it is not in the hospital formulary; he can return to prazosin upon discharge. Please decrease Vraylar to 1mg every evening at 2100 Please discontinue Haldol and Celexa Continue Home medication of Propanolol 20mg twice daily Impression\\plan: Patient is cleared from acute psychiatric services. Patient presented to [facility] for medical concerns and possible overuse of pain medications due to his cancer. Probable plan of care is hospice palliative care. Medication recommendations have been provided. Dr. Clement was consulted to care management of this patient; attending physicians in agreement with recommendations and disposition.
--- NOTE | 2019-01-15 17:33 | PDOC CONSULTATION ---
Consultation Consult Date: 01/11/19 Provider Consulted: MIGUEL A HENRIQUEZ History of Present Illness Admission Date/PCP: 01/09/19 01:29 KENYON MITCHELL MD Patient complains of: pain History of Present Illness: USAMA CAMPOS is a 53 year old male with complex medical history including chronic pain and advanced renal cell carcinoma with widespread metastatic disease. He was admitted due to confusion a nd altered mental status. He reports to "hanging out with the wrong crowd" the night before being admitted; he doesn't know what happened. He reports chronic pain in legs from fractures, pain in right hip and left shoulder from cancer metastases, and chronic back pain. Outpatient is prescribed Methadone and Dilaudid. Since admission a lot of his medications have been discontinued and/or decreased, pain and psyche meds. His cognition is improving slowly. He is not able to get out of bed due to being a fall risk. Past Medical History Cardiac Medical History: Reports: Hyperlipidema, Hypertension Pulmonary Medical History: Denies: Tuberculosis Endocrine Medical History: Reports: Diabetes Mellitus Type 2 Malignancy Medical History: Reports: Bone Cancer, Renal (Kidney) Cancer GI Medical History: Reports: Gastroesophageal Reflux Disease Musculoskeltal Medical History: Reports: Arthritis Psychiatric Medical History: Reports: Bipolar Disorder, Depression Past Surgical History Past Surgical History: Reports: Cholecystectomy, Herniorrhaphy, Orthopedic Surgery - l shldr cement, Tonsillectomy Denies: Pacemaker Social History Smoking Status: Former Smoker Electronic Cigarette use?: No Frequency of Alcohol Use: None Hx Recreational Drug Use: No Hx Prescription Drug Abuse: No - Advance Directive Resuscitation Status: Do Not Resuscitate Family History Family History: Reviewed & Not Pertinent Parental Family History Reviewed: No Children Family History Reviewed: No Sibling(s) Family History Reviewed.: No Medication/Allergy Home Medications: Ascorbic Acid [Vitamin C] 1,000 mg PO DAILY 01/09/19 Atorvastatin Calcium [Lipitor 10 mg Tablet] 10 mg PO DAILY 01/09/19 Benztropine Mesylate [Benztropine Mesylate 2 mg Tablet] 2 mg PO Q12 01/09/19 Cabozantinib S-Malate [Cabometyx] 60 mg PO DAILY 01/09/19 Cariprazine HCl [Vraylar] 3 mg PO QHS 01/09/19 Cetirizine HCl [Zyrtec 10 mg Tablet] 10 mg PO DAILY 01/09/19 Cholecalciferol (Vitamin D3) [Vitamin D3 400 Unit Tablet] 400 unit PO DAILY 01/09/19 Citalopram Hydrobromide [Celexa 40 mg Tablet] 40 mg PO DAILY 01/09/19 Clobetasol Propionate [Temovate 0.05% Topical Soln 25 Ml Bottle] 1 applic TOP DAILY 01/09/19 Cyanocobalamin (Vitamin B-12) [B-12] 500 mcg PO DAILY 01/09/19 Diclofenac Sodium [Voltaren] 2 gm TP QID 01/09/19 Docusate Sodium [Colace 100 mg Capsule] 100 mg PO BID 01/09/19 Doxepin HCl [[place] 25 Mg Capsule] 25 mg PO QHS 01/09/19 Fluticasone Propionate [Flonase Nasal [place] 50 Mcg/[place] 16 gm] 1 spray NASL DAILY 01/09/19 Gabapentin [Neurontin 300 mg Capsule] 300 mg PO QHS 01/09/19 Hydromorphone HCl [Dilaudid] 8 mg PO Q4HP PRN 01/09/19 Ibuprofen [Advil] 200 mg PO BID 01/09/19 Lidocaine HCl [Xylocaine 5% Ointment 35.44 gm] 1 applic TP ASDIR PRN 01/09/19 Lorazepam [Ativan 1 mg Tablet] 1 mg PO ASDIR PRN 01/09/19 Metformin HCl [Glucophage] 1,000 mg PO DAILY 01/09/19 Methadone HCl [Dolophine 10 Mg Tablet] 10 mg PO Q6 01/09/19 Naloxone HCl [Narcan] 4 mg NS ASDIR PRN 01/09/19 Nystatin [Mycostatin Cream] 1 applic TP BID 01/09/19 Ondansetron HCl [Zofran] 8 mg PO Q8HP PRN 01/09/19 Prazosin HCl [Minipress] 1 mg PO QHS 01/09/19 Propranolol HCl [Inderal 20 mg Tablet] 20 mg PO BID 01/09/19 Urea [Carmol 20% Cream 85 Gm] 1 applic TP BID 01/09/19 Allergies/Adverse Reactions: No Known Allergies Allergy (Verified 08/06/18 15:43) Review of Systems Constitutional: ABSENT: chills, fever(s) Cardiovascular: ABSENT: chest pain Respiratory: ABSENT: dyspnea Gastrointestinal: PRESENT: abdominal pain, constipation. ABSENT: diarrhea Genitourinary: ABSENT: dysuria, hematuria Musculoskeletal: PRESENT: as per HPI Neurological: PRESENT: confusion Physical Exam Vital Signs: Temp Pulse Resp BP Pulse Ox 97.6 F 72 16 117/76 96 RA 01/11/19 15:43 01/11/19 15:43 01/11/19 15:43 01/11/19 15:43 01/11/19 15:43 General appearance: PRESENT: no acute distress, cooperative, obese Head exam: PRESENT: atraumatic, normocephalic Eye exam: PRESENT: PERRLA, other - wearing glasses. ABSENT: nystagmus Ear exam: PRESENT: normal external ear exam Mouth exam: PRESENT: neck supple, tongue midline Neck exam: PRESENT: other - CROM grossly full Respiratory exam: PRESENT: clear to auscultation genna, unlabored. ABSENT: chest wall tenderness Cardiovascular exam: PRESENT: RRR Pulses: PRESENT: normal carotid pulses, normal radial pulses, normal dorsalis pedis pul, other - (-)edema GI/Abdominal exam: PRESENT: normal bowel sounds, soft. ABSENT: distended, guarding, tenderness Musculoskeletal exam: PRESENT: other - moves limbs freely in bed without difficulty; is non-ambulatory d/t precautionary reasons and fall risk. ABSENT: ambulatory, deformity Neurological exam: PRESENT: alert, oriented to person, oriented to time, CN II- XII grossly intact, other - (-)clonus at ankle jerks; sensation intact grossly BLE. ABSENT: oriented to place, oriented to situation, motor sensory deficit Psychiatric exam: PRESENT: appropriate affect, normal mood Results Laboratory Results: 01/09/19 18:34 Blood Blood Culture - Final NO GROWTH IN 5 DAYS 01/09/19 18:20 Blood Blood Culture - Final NO GROWTH IN 5 DAYS Impressions: Head CT 01/08/19 21:23 IMPRESSION: No acute intracranial findings. Abdomen/Pelvis CT 01/09/19 00:00 IMPRESSION: 1. No acute intra-abdominal abnormality. 2. Stable appearance of the lytic lesions that involve the bilateral iliac bones and right acetabulum ; the right acetabular lesion is associated with a pathologic fracture. Chest CT 01/09/19 00:00 IMPRESSION: 1. Pleural-based opacities in the right lower lobe that could represent atelectasis. 2. Lytic lesions that involve the manubrium, left clavicle and the C7, T1, T6 and T12 vertebral bodies. As detailed above, the T6 lesion has increased in size from the prior PET and it measures approximately 2.1 cm compared to 1.3 cm. In contradistinction, the T1 and T12 lesions appear to have decreased in size a nd there is increased sclerosis at the margins of the lesions ; these findings could represent response to treatment. Shoulder X-Ray 01/09/19 01:01 IMPRESSION: Methylmethacrylate within known large lytic lesion in the left glenoid with no acute abnormality. Head MRI 01/10/19 00:00 IMPRESSION: NORMAL MRI OF THE BRAIN WITHOUT AND WITH INTRAVENOUS GADOLINIUM CONTRAST. EVIDENCE OF ACUTE STROKE: NO. Assessment & Plan - Diagnosis (1) Chronic pain syndrome Is this a current diagnosis for this admission?: Yes Plan: 1. Continue Methadone for chronic pain management; is decreased from outpatient of 40mg/d to 30mg/day and will keep at this lowered dose given significant confusion 2. D/c IV Dilaudid and avoid all IV pain medication to avoid further AMS 3. Trial OxyIR 10mg pain 4-5/5; hold for worsening confusion/AMS 4. Agree with medication changes so far and slowly weeding out any medication that could be cause of AMS. Agree with holding psyche meds. 5. Continue to monitor. Re-consult as needed.
[2019-01-16] MEDS: METHADONE HCL 10 MG TABLET PO SCH (01:08)
[2019-01-16] MEDS: NYSTATIN/DEXAMETH/DIPHEN SUSP 120 ML PO SCH ×2 (05:38→11:33)
[2019-01-16] MEDS: INSULIN LISPRO 100 UNIT/ML 3 ML VIAL SUBCUT SCH ×2 (09:06→11:33)
[2019-01-16] MEDS: NYSTATIN CREAM 15 GM TP SCH (09:07)
[2019-01-16] MEDS: ENOXAPARIN SODIUM INJ 40 MG/0.4 ML DISP.SYRIN SUBCUT SCH (09:07)
[2019-01-16] MEDS: POLYETHYLENE GLYCOL 3350 POWDER 17 GM/1 PACKET PO SCH (09:07)
[2019-01-16] MEDS: CITALOPRAM HYDROBROMIDE 20 MG TABLET PO SCH (09:15)
[2019-01-16] MEDS: ATORVASTATIN CALCIUM 10 MG TABLET PO SCH (09:15)
[2019-01-16] MEDS: OXYCODONE HCL IR 5 MG TABLET PO PRN (09:15)
[2019-01-16] MEDS: DOCUSATE SODIUM 100 MG CAPSULE PO SCH (09:15)
[2019-01-16] MEDS: PROPRANOLOL HCL 20 MG TABLET PO SCH (09:15)
[2019-01-16] MEDS: CETIRIZINE 10 MG TABLET PO SCH (09:15)
[2019-01-16] MEDS: BENZTROPINE MESYLATE 1 MG TABLET PO SCH (09:15)
[2019-01-16] MEDS: FAMOTIDINE 20 MG TABLET PO SCH (09:15)
[2019-01-16] MEDS: FLUTICASONE NASAL SPRAY 50 MCG/SPRY 120 SPRAY/16 GM NASL SCH (09:17)
[2019-01-16] MEDS: CYANOCOBALAMIN (VITAMIN B-12) 1,000 MCG TABLET PO SCH (09:17)
[2019-01-16] MEDS ORDERED: TAMSULOSIN HCL 0.4 MG CAP.SR.24H PO SCH (10:00)
--- NOTE | 2019-01-16 12:49 | PDOC DISCHARGE SUMMARY ---
Impression - Admit/DC Date/PCP Admission Date/Primary Care Provider: 01/09/19 01:29 KENYON MITCHELL MD Discharge Date: 01/16/19 - Discharge Diagnosis (1) Encephalopathy acute Is this a current diagnosis for this admission?: Yes (2) Renal cell carcinoma Is this a current diagnosis for this admission?: Yes (3) Sepsis Is this a current diagnosis for this admission?: Yes (4) Elevated lactic acid level Is this a current diagnosis for this admission?: Yes (5) Type 2 diabetes mellitus Is this a current diagnosis for this admission?: Yes (6) Hypertension Is this a current diagnosis for this admission?: Yes (7) Dehydration Is this a current diagnosis for this admission?: Yes (8) Chronic pain syndrome Is this a current diagnosis for this admission?: Yes (9) Bipolar disorder Is this a current diagnosis for this admission?: Yes - Additional Information Resuscitation Status: Do Not Resuscitate Discharge Diet: Regular, Diabetic Discharge Activity: Activity As Tolerated [facility] - [facility] - 02/08/19 1:15 pm SOY REGAN MD [ACTIVE STAFF] - 01/31/19 12:30 pm KENYON MITCHELL MD [Primary Care Provider] - 01/23/19 2:15 pm ( ) Prescriptions: Tamsulosin HCl [Flomax 0.4 mg Cap.sr] 0.4 mg PO DAILY #30 cap.sr.24h Polyethylene Glycol 3350 [Miralax Powder 17 gm/Packet] 17 gm PO DAILY #30 powd.pack Home Medications: Ascorbic Acid [Vitamin C] 1,000 mg PO DAILY 01/09/19 Atorvastatin Calcium [Lipitor 10 mg Tablet] 10 mg PO DAILY 01/09/19 Benztropine Mesylate [Benztropine Mesylate 2 mg Tablet] 2 mg PO Q12 01/09/19 Cetirizine HCl [Zyrtec 10 mg Tablet] 10 mg PO DAILY 01/09/19 Cholecalciferol (Vitamin D3) [Vitamin D3 400 Unit Tablet] 400 unit PO DAILY 01/09/19 Citalopram Hydrobromide [Celexa 40 mg Tablet] 40 mg PO DAILY 01/09/19 Clobetasol Propionate [Temovate 0.05% Topical Soln 25 ml] 1 applic TOP DAILY 01/09/19 Cyanocobalamin (Vitamin B-12) [B-12] 500 mcg PO DAILY 01/09/19 Diclofenac Sodium [Voltaren] 2 gm TP QID 01/09/19 Docusate Sodium [Colace 100 mg Capsule] 100 mg PO BID 01/09/19 Fluticasone Propionate [Flonase Nasal [place] 50 Mcg/[place] 16 gm] 1 spray NASL DAILY 01/09/19 Lidocaine HCl [Xylocaine 5% Ointment 35.44 gm] 1 applic TP ASDIR PRN 01/09/19 Metformin HCl [Glucophage] 1,000 mg PO DAILY 01/09/19 Naloxone HCl [Narcan] 4 mg NS ASDIR PRN 01/09/19 Nystatin [Mycostatin Cream 15 gm] 1 applic TP BID 01/09/19 Prazosin HCl [Minipress] 1 mg PO QHS 01/09/19 Propranolol HCl [Inderal 20 mg Tablet] 20 mg PO BID 01/09/19 Urea [Carmol 20% Cream 85 gm] 1 applic TP BID 01/09/19 Methadone HCl [Dolophine 10 mg Tablet] 10 mg PO Q8 #0 01/16/19 Polyethylene Glycol 3350 [Miralax Powder 17 gm/Packet] 17 gm PO DAILY #30 powd.pack 01/16/19 Tamsulosin HCl [Flomax 0.4 mg Cap.sr] 0.4 mg PO DAILY #30 cap.sr.24h 01/16/19 History of Present Illiness History of Present Illness: USAMA CAMPOS is a 53 year old male This is a 53-year-old male diagnosis with the renal cell carcinoma with the widespread metastatic disease in the bone currently seen in [place] in November admitting in the hospital because of the confusions and right hip pain and multiple joint pain issues Patients diagnosed with a renal cell carcinoma in the back in June 2018 patient's was referred to the urology at [facility] for the left nephrectomy and subsequent PET scan suggest the metastatic disease Patient initially seen by Dr. Bolden locally here start on immunotherapy I believe referred to the [facility] receiving the immunotherapy and I believe chemotherapy and radiation's treatments According to the [facility] not patient's was confused he went to [facility] hospital was admitted last month and they believe the come from the oral immunotherapy Patient 2 days presents with the more confusions and the patient have recently had dental work done and patient was put on amoxicillin In the emergency department initial CT head all blood work was normal and ER physicians call for the admissions Patient have uncontrolled pain with the history of the chronic pain syndrome and chronic back pain and currently see the [facility] pain management for that Patient was recently admitted in the [facility] and the increase of Dilaudid 8 mg p.o. every 8 and also methadone 10 mg p.o. every 6 because of the uncontrolled pain When I saw the patient in the ER patient is confused compared to my assessment and the previously when in the office which he last seen in the September Patient also have a 101 fever and lactic acid was 2.7 Patient's otherwise denied any chest pain to than any shortness of the breath complaining of some lower abdominal discomfort According to the mother patient having a lot of pain and reviewed the [facility] record in November patient was confused and a lot of pain and they adjust the pain medication and the hold the chemotherapy Should have an appointment to see a new oncology today this afternoon Dr. Thakkar Very extensive discussions with the mother who taking care of the patient and the according to the mother patients wants to be a DNR As per discussed with the oncology we will start the patient on broad-spectrum IV antibiotic get the all cultures The CT of the chest abdomen pelvis and get the MRI of the head Patient had a MRI was done in the November was all okay and [facility] Since PET scan's on the [facility] suggest the worsening the malignancy Hospital Course Hospital Course: This is a 53-year-old male the stage IV renal cell carcinoma the metastatic in the bone with a history of the chronic pain syndromes and worsening the pain due to the above diseaseWith the history of bipolar disorder with the multiple psych medBrought to the emergency department with altered mental status and some agitations Patient was admitting to the [facility] last month with the same type of the symptoms and extensive work-up done and most likely this stop the certain immunotherapy medications and the patient get better but again patient have some symptoms with the hallucinations and altered mental statusInitial work-up in the ER a CT head blood work everything was stable mildly elevated lactic acid but no sign of sepsis Patient was put on IV fluid and broad-spectrum IV antibiotic including the vancomycin and cefepime for all the cultures Patient's multiple psych medications was hold and pain medication was also reduce it Encephalopathy is improving patient's all cultures came back negative Seen by the pain management and the suggested continues the methadone 30 mg p.o. every 8 and discontinues the Dilaudid and patient have appointment to see in 2 days and the pain management in the [facility] Patient's hallucinations and the mental status is much improved back to the baseline Patient's at this point discontinues to all antibiotics patients remain afebrile patient's not any sepsis no need for lumbar puncture Very extensive discussions with the patient in the oncology most likely admit patient with our paraneoplastic syndromes with the worsening renal cell carcinoma several medication was try and I think with the multiple other psych issues and the pain medication issues patients develop this encephalopathy Overall patient's prognosis is poor due to the worsening the renal cell carcinoma discussed with the patient and the mother on the bedside and patient's discharge home with the Reed catheter and follow outpatient urology Patient had an outpatient oncology urology appointment and the pain management The patient's of a further continues with this hallucinations problems with encephalopathy I believe patients may need to go back to the [facility] to further evaluate Is currently follow with the [facility] oncology and local oncology here Physical Exam Vital Signs: Temp Pulse Resp BP Pulse Ox 97.6 F 71 12 130/84 H 93 01/16/19 03:32 01/16/19 07:00 01/16/19 03:32 01/16/19 03:32 01/16/19 03:32 Intake & Output 01/15/19 01/16/19 01/17/19 06:59 06:59 06:59 Intake Total 810 1320 Output Total 3200 2525 Balance -2390 -1205 Weight 116.7 kg 117.1 kg General appearance: PRESENT: no acute distress, well-developed, well-nourished Head exam: PRESENT: atraumatic, normocephalic Eye exam: PRESENT: conjunctiva pink, EOMI, PERRLA. ABSENT: scleral icterus Ear exam: PRESENT: normal external ear exam Mouth exam: PRESENT: moist, tongue midline Neck exam: ABSENT: carotid bruit, JVD, lymphadenopathy, thyromegaly Respiratory exam: PRESENT: clear to auscultation genna. ABSENT: rales, rhonchi, wheezes Cardiovascular exam: PRESENT: RRR. ABSENT: diastolic murmur, rubs, systolic murmur Pulses: PRESENT: normal dorsalis pedis pul Vascular exam: PRESENT: normal capillary refill GI/Abdominal exam: PRESENT: normal bowel sounds, soft. ABSENT: distended, guarding, mass, organolmegaly, rebound, tenderness Rectal exam: PRESENT: deferred Extremities exam: PRESENT: full ROM. ABSENT: calf tenderness, clubbing, pedal edema Neurological exam: PRESENT: alert, awake, oriented to person, oriented to place, oriented to time, oriented to situation, CN II-XII grossly intact. ABSENT: motor sensory deficit Psychiatric exam: PRESENT: appropriate affect, normal mood. ABSENT: homicidal ideation, suicidal ideation Skin exam: PRESENT: dry, intact, warm. ABSENT: cyanosis, rash Results Laboratory Results: WBC 3.1 10^3/uL (4.0-10.5) L 01/13/19 07:13 RBC 4.33 10^6/uL (4.35-5.55) L 01/13/19 07:13 Hgb 13.4 g/dL (13.5-17.0) L 01/13/19 07:13 Hct 39.6 % (37.9-51.0) 01/13/19 07:13 MCV 92 fl (80-97) 01/13/19 07:13 MCH 30.9 pg (27.0-33.4) 01/13/19 07:13 MCHC 33.8 g/dL (32.0-36.0) 01/13/19 07:13 RDW 16.4 % (11.5-14.0) H 01/13/19 07:13 Plt Count 155 10^3/uL (150-450) 01/13/19 07:13 Lymph % (Auto) 30.0 % (13-45) 01/13/19 07:13 [place] % (Auto) 9.6 % (3-13) 01/13/19 07:13 Eos % (Auto) 9.8 % (0-6) H 01/13/19 07:13 Baso % (Auto) 0.9 % (0-2) 01/13/19 07:13 Absolute Neuts (auto) 1.6 10^3/uL (1.7-8.2) L 01/13/19 07:13 Absolute Lymphs (auto) 0.9 10^3/uL (0.5-4.7) 01/13/19 07:13 Absolute Monos (auto) 0.3 10^3/uL (0.1-1.4) 01/13/19 07:13 Absolute Eos (auto) 0.3 10^3/uL (0.0-0.6) 01/13/19 07:13 Absolute Basos (auto) 0.0 10^3/uL (0.0-0.2) 01/13/19 07:13 Seg Neutrophils % 49.7 % (42-78) 01/13/19 07:13 Large Platelets PRESENT 01/08/19 20:36 Platelet Comment ADEQUATE 01/08/19 20:36 Anisocytosis 1+ 01/08/19 20:36 Carbonic Acid 1.12 mmol/L (1.05-1.35) 01/10/19 17:13 HCO3/H2CO3 Ratio 18:1 01/10/19 17:13 ABG pH 7.36 (7.35-7.45) 01/10/19 17:13 ABG pCO2 37.3 mmHg (35-45) 01/10/19 17:13 ABG pO2 61.1 mmHg (80-100) L 01/10/19 17:13 ABG HCO3 20.7 mmol/L (20-24) 01/10/19 17:13 ABG Total CO2 21.8 mmol/L (23-27) L 01/10/19 17:13 ABG O2 Saturation 90.8 % (94-98) L 01/10/19 17:13 ABG Base Excess -4.1 mmol/L 01/10/19 17:13 FiO2 ROOM AIR 01/10/19 17:13 Sodium 142.2 mmol/L (137-145) 01/15/19 05:46 Potassium 4.6 mmol/L (3.6-5.0) 01/15/19 05:46 Chloride 104 mmol/L (98-107) 01/15/19 05:46 Carbon Dioxide 28 mmol/L (22-30) 01/15/19 05:46 Anion Gap 10 (5-19) 01/15/19 05:46 BUN 10 mg/dL (7-20) 01/15/19 05:46 Creatinine 0.93 mg/dL (0.52-1.25) 01/15/19 05:46 Est GFR ( Amer) > 60 (>60) 01/15/19 05:46 Est GFR (MDRD) Non-Af > 60 (>60) 01/15/19 05:46 Glucose 91 mg/dL (75-110) 01/15/19 05:46 POC Glucose 96 mg/dL (70-110) 01/15/19 21:02 Lactic Acid 1.4 mmol/L (0.7-2.1) 01/13/19 07:13 Calcium 9.6 mg/dL (8.4-10.2) 01/15/19 05:46 Magnesium 2.1 mg/dL (1.6-2.3) 01/12/19 05:52 Total Bilirubin 0.4 mg/dL (0.2-1.3) 01/13/19 07:13 Direct Bilirubin 0.1 mg/dL (0.0-0.4) 01/13/19 07:13 Neonat Total Bilirubin Not Reportable 01/13/19 07:13 Neonat Direct Bilirubin Not Reportable 01/13/19 07:13 Neonat Indirect Bili Not Reportable 01/13/19 07:13 AST 51 U/L (17-59) 01/13/19 07:13 ALT 75 U/L (<50) 01/13/19 07:13 Alkaline Phosphatase 189 U/L (38-126) H 01/13/19 07:13 Ammonia < 8.7 umol/L (9-33) L 01/09/19 03:18 Total Protein 6.6 g/dL (6.3-8.2) 01/13/19 07:13 Albumin 3.4 g/dL (3.5-5.0) L 01/13/19 07:13 Urine Color YELLOW 01/14/19 14:45 Urine Appearance CLEAR 01/14/19 14:45 Urine pH 6.0 (5.0-9.0) 01/14/19 14:45 Ur Specific [place] 1.018 01/14/19 14:45 Urine Protein NEGATIVE mg/dL (NEGATIVE) 01/14/19 14:45 Urine Glucose (UA) NEGATIVE mg/dL (NEGATIVE) 01/14/19 14:45 Urine Ketones NEGATIVE mg/dL (NEGATIVE) 01/14/19 14:45 Urine Blood NEGATIVE (NEGATIVE) 01/14/19 14:45 Urine Nitrite NEGATIVE (NEGATIVE) 01/14/19 14:45 Urine Bilirubin NEGATIVE (NEGATIVE) 01/14/19 14:45 Urine Urobilinogen NEGATIVE mg/dL (<2.0) 01/14/19 14:45 Ur Leukocyte Esterase NEGATIVE (NEGATIVE) 01/14/19 14:45 Urine WBC (Auto) 2 /HPF 01/14/19 14:45 Urine RBC (Auto) 1 /HPF 01/14/19 14:45 U Hyaline Cast (Auto) 1 /LPF 01/08/19 23:38 Urine Mucus (Auto) RARE /LPF 01/14/19 14:45 Urine Ascorbic Acid NEGATIVE (NEGATIVE) 01/14/19 14:45 Time Trough Drawn 1340 01/10/19 13:40 Vancomycin Trough 22.2 ug/mL (5.0-20.0) H 01/10/19 13:40 Urine Opiates Screen UNCONFIRMED POSITIVE 01/08/19 23:38 Urine Methadone Screen UNCONFIRMED POSITIVE 01/08/19 23:38 Ur Barbiturates Screen NEGATIVE 01/08/19 23:38 Ur Phencyclidine Scrn NEGATIVE 01/08/19 23:38 Ur Amphetamines Screen NEGATIVE 01/08/19 23:38 U Benzodiazepines Scrn UNCONFIRMED POSITIVE 01/08/19 23:38 Urine Cocaine Screen NEGATIVE 01/08/19 23:38 U Marijuana (THC) Screen UNCONFIRMED POSITIVE 01/08/19 23:38 Impressions: Chest X-Ray 01/08/19 21:23 IMPRESSION: No acute cardiopulmonary findings. Head CT 01/08/19 21:23 IMPRESSION: No acute intracranial findings. Abdomen/Pelvis CT 01/09/19 00:00 IMPRESSION: 1. No acute intra-abdominal abnormality. 2. Stable appearance of the lytic lesions that involve the bilateral iliac bones and right acetabulum ; the right acetabular lesion is associated with a pathologic fracture. Chest CT 01/09/19 00:00 IMPRESSION: 1. Pleural-based opacities in the right lower lobe that could represent atelectasis. 2. Lytic lesions that involve the manubrium, left clavicle and the C7, T1, T6 and T12 vertebral bodies. As detailed above, the T6 lesion has increased in size from the prior PET and it measures approximately 2.1 cm compared to 1.3 cm. In contradistinction, the T1 and T12 lesions appear to have decreased in size and there is increased sclerosis at the margins of the lesions ; these findings could represent response to treatment. Shoulder X-Ray 01/09/19 01:01 IMPRESSION: Methylmethacrylate within known large lytic lesion in the left glenoid with no acute abnormality. Head MRI 01/10/19 00:00 IMPRESSION: NORMAL MRI OF THE BRAIN WITHOUT AND WITH INTRAVENOUS GADOLINIUM CONTRAST. EVIDENCE OF ACUTE STROKE: NO. Chest X-Ray 01/12/19 00:00 IMPRESSION: No acute findings Plan Plan of Treatment: Patients follow outpatient oncology at [facility] and locally here for follow-up pain management and urology continues home health and physical therapy Time Spent: Greater than 30 Minutes Stroke Is this a Stroke Patient?: Yes Stroke Pt being discharged on Anti-thrombolytic therapy?: Yes Acute Heart Failure - Is this a Heart Failure Patient?: No
[2019-01-16] MEDS: ACETAMINOPHEN 325 MG TABLET PO PRN (13:10)
[2019-01-16 13:14] VITALS: BP 151/97
== END 2019-01-16 13:28 | disposition home health service (06) | DRG 686 ==
LOC: ER 20:22 → OBSVTOIN 01-09 01:29 → EH 01-09 01:29 → 3S 01-09 15:45
PROVIDERS: ADMIT Family Medicine; ATTEND Family Medicine
DX: C64.2 Malignant neoplasm of left kidney, except renal pelvis (principal); G92 Toxic encephalopathy; C79.51 Secondary malignant neoplasm of bone; G13.0 Paraneoplastic neuromyopathy and neuropathy; T50.995A Adverse effect of other drugs, medicaments and biological substances, initial encounter; G89.3 Neoplasm related pain (acute) (chronic); E78.5 Hyperlipidemia, unspecified; I10 Essential (primary) hypertension; E11.9 Type 2 diabetes mellitus without complications; K21.9 Gastro-esophageal reflux disease without esophagitis; E86.0 Dehydration; M19.90 Unspecified osteoarthritis, unspecified site; F31.9 Bipolar disorder, unspecified; M54.9 Dorsalgia, unspecified; M25.512 Pain in left shoulder; Z66 Do not resuscitate; G89.4 Chronic pain syndrome; Z90.49 Acquired absence of other specified parts of digestive tract; Z79.899 Other long term (current) drug therapy; Z79.84 Long term (current) use of oral hypoglycemic drugs; Z87.891 Personal history of nicotine dependence; Z23 Encounter for immunization
CPT/HCPCS: 36415; 36600; 51701; 70450; 70553; 71045; 71260; 74177; 80048; 80053; 80076; 80202; 80307; 81001; 82140; 82803; 82962; 83605; 83735; 85025; 87040; 87070; 87086; 87205; 90686; 94799; 96360; 96361; 99285; A9576; J0692; J1170; J1630; J1650; J2060; J2405; J3370; J3490; J7030; J7060; J7120